=== PATIENT | female | born 1970 | race Caucasian/White ===

== ENCOUNTER 2018-12-23 01:16 | Inpatient (IN) | payer SELFPAY ==
--- NOTE | 2018-12-23 01:20 | EDPHY ---
H & P Source: Patient, Police Time Seen by Provider: 12/23/18 01:20 HPI/ROS: HPI CHIEF COMPLAINT: M1 hold from senior living. Delusional HISTORY OF PRESENT ILLNESS: This is a 48-year-old female, she presents to the emergency from senior living on M1 hold by senior living staff. The M1 hold reveals that she is delusional, hyper-denominational and paranoid. Patient has a history of PTSD, but denies any other psychiatric illness. She presents to the emergency room and is very delusional. Paranoid. Hyper-denominational here. She had a mental health evaluation at senior living. Once she is medically clear here, they will search for bed placement. Past Medical History: PTSD Past Surgical History: Denies recent surgery Social History: Was recently incarcerated, denies drugs or alcohol. Family History: Noncontributory ROS REVIEW OF SYSTEMS: 10 Systems were reviewed and negative with the exception of the elements mentioned in the history of present illness. Exam Constitutional triage nursing summary reviewed, vital signs reviewed, awake/ alert. Eyes normal conjunctivae and sclera, EOMI, PERRLA. HENT normal inspection, atraumatic, moist mucus membranes, no epistaxis, neck supple/ no meningismus, no raccoon eyes. Respiratory clear to auscultation bilaterally, normal breath sounds, no respiratory distress, no wheezing. Cardiovascular rate normal, regular rhythm, no murmur, no edema, distal pulses normal. Gastrointestinal soft, non-tender, no rebound, no guarding, normal bowel sounds, no distension, no pulsatile mass. Genitourinary no CVA tenderness. Musculoskeletal no midline vertebral tenderness, full range of motion, no calf swelling, no tenderness of extremities, no meningismus, good pulses, neurovascularly intact. Skin pink, warm, & dry, no rash, skin atraumatic. Neurologic awake, alert and oriented x 3, AAOx3, moves all 4 extremities equally, motor intact, sensory intact, CN II-XII intact, normal cerebellar, normal vision, normal speech. Psychiatric delusional, paranoid, hyper denominational Heme/Lymph/Immune no lymphadenopathy. Differential Diagnosis: But is not limited to in a particular order acute psychosis, underlying mental illness, mood disorder, bipolar disorder, schizophrenia, drug intoxication Medical Decision Making: Plan for this patient blood draw for medical clearance , drug screen, alcohol level. Patient on M1 home by senior living. Patient will need to rest tonight, and mental health evaluation in the morning once medically cleared. Re-evaluation: Patient has been seen and evaluated by mental health at senior living. She is now medically cleared 5:06 a.m.. They are pending placement for her. 0700AM: Signed over to Dr. Reyes, patient pending placement. (Feroz Rico) Constitutional: Initial Vital Signs Temperature (C) 36.4 C 12/23/18 01:20 Heart Rate 81 12/23/18 01:20 Respiratory Rate 16 12/23/18 01:20 Blood Pressure 112/74 12/23/18 01:20 O2 Sat (%) 96 12/23/18 01:20 O2 Delivery Mode Room Air Allergies/Adverse Reactions: Penicillins Allergy (Verified 12/23/18 01:38) Home Medications: Medication Instructions Recorded NK [No Known Home Meds] 12/23/18 Medical Decision Making Other Provider: Care assumed at 6:45 a.m., plan for inpatient psychiatric hospitalization for this 48-year-old woman who presents from senior living with acute psychosis. 721: The patient will be transferred to [facility] for inpatient psychiatric hospital bed not available at this facility, in stable condition; accepting physician is Dr. Miah Zhang. EMTALA form completed. (Ap Reyes) - Data Points Laboratory Results: Laboratory Results 12/23/18 01:30 12/23/18 01:30 12/23/18 12/23/18 12/23/18 01:30 01:30 01:30 WBC RBC Hgb Hct MCV MCH MCHC RDW Plt Count MPV Neut % (Auto) Lymph % (Auto) [place] % (Auto) Eos % (Auto) Baso % (Auto) Nucleat RBC Rel Count Absolute Neuts (auto) Absolute Lymphs (auto) Absolute Monos (auto) Absolute Eos (auto) Absolute Basos (auto) Absolute Nucleated RBC Immature Gran % Immature Gran # Sodium 140 mEq/L mEq/L (135-145) Potassium 3.6 mEq/L mEq/L (3.5-5.2) Chloride 108 mEq/L mEq/L (97-110) Carbon Dioxide 21 mEq/l L mEq/l (22-31) Anion Gap 11 mEq/L mEq/L (6-14) BUN 10 mg/dL mg/dL (7-23) Creatinine 0.7 mg/dL mg/dL (0.6-1.0) Estimated GFR > 60 Glucose 96 mg/dL mg/dL (70-100) Calcium 9.6 mg/dL mg/dL (8.5-10.4) Beta HCG, Qual NEGATIVE Urine Opiates Screen NEGATIVE (NEGATIVE) Urine Barbiturates NEGATIVE (NEGATIVE) Ur Phencyclidine Scrn NEGATIVE (NEGATIVE) Ur Amphetamine Screen NEGATIVE (NEGATIVE) U Benzodiazepines Scrn NEGATIVE (NEGATIVE) Urine Cocaine Screen NEGATIVE (NEGATIVE) U Marijuana (THC) Screen NEGATIVE (NEGATIVE) Ethyl Alcohol < 10 mg/dL mg/dL (0-10) 12/23/18 01:30 WBC 7.67 10^3/uL 10^3/uL (3.80-9.50) RBC 4.44 10^6/uL 10^6/uL (4.18-5.33) Hgb 14.3 g/dL g/dL (12.6-16.3) Hct 41.7 % % (38.0-47.0) MCV 93.9 fL fL (81.5-99.8) MCH 32.2 pg pg (27.9-34.1) MCHC 34.3 g/dL g/dL (32.4-36.7) RDW 11.9 % % (11.5-15.2) Plt Count 308 10^3/uL 10^3/uL (150-400) MPV 9.2 fL fL (8.7-11.7) Neut % (Auto) 53.9 % % (39.3-74.2) Lymph % (Auto) 36.6 % % (15.0-45.0) [place] % (Auto) 5.9 % % (4.5-13.0) Eos % (Auto) 1.6 % % (0.6-7.6) Baso % (Auto) 1.7 % % (0.3-1.7) Nucleat RBC Rel Count 0.0 % % (0.0-0.2) Absolute Neuts (auto) 4.14 10^3/uL 10^3/uL (1.70-6.50) Absolute Lymphs (auto) 2.81 10^3/uL 10^3/uL (1.00-3.00) Absolute Monos (auto) 0.45 10^3/uL 10^3/uL (0.30-0.80) Absolute Eos (auto) 0.12 10^3/uL 10^3/uL (0.03-0.40) Absolute Basos (auto) 0.13 10^3/uL H 10^3/uL (0.02-0.10) Absolute Nucleated RBC 0.00 10^3/uL 10^3/uL (0-0.01) Immature Gran % 0.3 % % (0.0-1.1) Immature Gran # 0.02 10^3/uL 10^3/uL (0.00-0.10) Sodium Potassium Chloride Carbon Dioxide Anion Gap BUN Creatinine Estimated GFR Glucose Calcium Beta HCG, Qual Urine Opiates Screen Urine Barbiturates Ur Phencyclidine Scrn Ur Amphetamine Screen U Benzodiazepines Scrn Urine Cocaine Screen U Marijuana (THC) Screen Ethyl Alcohol Departure - Departure Disposition: [facility] IP Clinical Impression: Acute psychosis Condition: Fair Referrals: NONE *PRIMARY CARE P,. [Primary Care Provider] - As per Instructions
[2018-12-23 01:43] LABS: PLATELET COUNT 308 10^3/uL (150-400)
--- NOTE | 2018-12-23 07:16 | ASMTTCLDSP ---
[facility] Discharge Disposition Disposition: Answers: Admit Disposition Notes: Notes: Admit [facility]. Discharge Concerns/Recommendations: Notes: Unspecified Schizophrenia Spectrum and Other Psychotic Disorder 298.9 (F29) Posttraumatic Stress Disorder 309.81 (F43.10) by history MH evaluation was conducted on 12/22/18 by [facility] while pt was at [facility]. Report faxed to [facility]. In consultation with [facility] ED physician, Ivan Guerra MD, and on-call psychiatrist, Miah Zhang MD, both concurred that pt appears to meet 27-65 criteria requiring psychiatric hospitalization as pt appears to be gravely disabled due to a mental illness condition. Pt declined/unable to complete BDI/BSS questionnaires. Pt was given (but declined to sign) the [facility] prohibited belongings checklist. Was patient given the Answers: Yes Inpatient Behavioral Health Prohibited Belongings List while in the ED? For inpatient Miah Zhang MD admission, the following psychiatrist agreed to accept patient for admission to Behavioral Health ([facility]): Type of Hold: Answers: M1/72-hour Hold Hold initiated by: Answers: Other Notes: [facility] worker Date Signed: 12/23/2018 07:15 AM Electronically Signed By:Nabeel Herrera
[2018-12-23] MEDS ORDERED: LORazepam 0.5 MG TAB PO PRN (11:31)
[2018-12-23] MEDS ORDERED: OLANZapine DISINTEGR 10 MG TAB PO PRN (11:31)
[2018-12-23] MEDS ORDERED: ASPIRIN 81 MG CHEWABLE TAB PO ONE (12:41)
[2018-12-23] MEDS: NICOTINE POLACRILEX 2 MG GUM B PRN (13:42)
--- NOTE | 2018-12-23 13:44 | BAPA ---
[f rep st] ADMISSION PSYCHIATRIC ASSESSMENT DATE OF SERVICE: 12/23/2018 CHIEF COMPLAINT: "I'm here because I was transported here. I have a headache and a nosebleed. I am here for medical reasons. I would really prefer not to meet right now." HISTORY OF PRESENT ILLNESS: From the ED note, dated 12/23/2018, the [facility]. M1 hold states that patient presented with delusional thinking, with hyperreligiosity being persecuted and tortured. Patient expressed several bizarre physical complaints, including her leg being broken, fever getting worse, wisdom teeth coming in and a heart murmur. The patient was tangential, disorganized thought process. The patient appeared gravely disabled. From the [facility] assessment, dated 12/22/2018, the patient is homeless. Reportedly has 4 kids who live with her ex- in [place]. The patient is not active with mental health treatment anywhere and has no insurance. The patient's delusions made it difficult to gather accurate information during the [facility] evaluation. The patient was admitted to [facility] due to harassment and violation of a restraining order charges on December 19. [facility] was [facility] by [facility] clinician on December 20, and they recommended that patient is seen by [facility] for potential M1 hold due to patient "not being in touch with reality." Patient had court on 12/22/2018, and was released on a CT huston. The patient reported hyperreligiosity regarding Catholicism that are outside the cultural norms. The patient reported "extra- perceptive" and reported she could feel people's emotions and hear their thoughts. The patient made numerous references to involvement in her life. [facility] staff reported patient was seen by mental health team , and she was diagnosed with PTSD 7 or 8 years ago. The patient was unintelligible with various unrelated narratives being discussed. The patient appeared delusional with delusions of persecution and grandiosity. When asked questions about how patient had been sleeping and eating, patient reported, "Well, I see it as a twilight that I'm in between." The patient then went on with a narrative about people in group are part of a [employer] cruise ship and that she has a broken leg, her wisdom teeth are coming in, she has a heart murmur and she has a fever that has been getting worse. Further information regarding patient's history of present illness will be gathered throughout the course of the patient's stay. PAST PSYCHIATRIC HISTORY: Patient reported no history of suicide attempts. The patient was unable to provide past psychiatric history during the [facility] evaluation, and patient did not provide any past psychiatric history to this ASSISTANT TO THE PRESIDENT. Will continue to gather past psychiatric history during the course of the patient's hospital stay. ALLERGIES: Penicillins. CURRENT MEDICATIONS: 1. Tylenol 650 mg p.o. q.4 hours p.r.n. 2. Aspirin 81 mg p.o. now once. 3. Ativan 0.5 to 1 mg p.o. q.6 hours p.r.n. 4. Maalox syrup 30 mL p.o. q.6 hours p.r.n. 5. Milk of magnesia 30 mL p.o. daily p.r.n. 6. Nicorette 2 mg q.1 hour p.r.n. 7. Zyprexa Zydis 10 mg p.o. q.4 hours p.r.n. PAST MEDICAL HISTORY: The patient reported several bizarre physical complaints , including that her leg was broken, her wisdom teeth were coming in, she has a heart murmur, and her fever is getting worse. The patient was medically cleared for psychiatric hospitalization and treatment during the emergency department evaluation prior to being admitted here at [address] The patient reported no significant history of illnesses, surgeries or hospitalizations to this ASSISTANT TO THE PRESIDENT and no general health history was gathered during the [facility]' evaluation prior to patient being admitted. Will continue to gather past medical history throughout the course of the patient's hospitalization. SOCIAL HISTORY: Patient is currently unemployed. The patient reported she has a BA and is working on her master's in " [employer]." The patient has no history of duty. The patient is currently involved with the legal system. The patient was admitted at [facility] due to harassment and violation of restraining order charges on December 19, 2018. No additional social history is available at this time. The patient presents with disorganized tangential thought, provides nonsensical answers to this ASSISTANT TO THE PRESIDENT's questions regarding social history. Will continue to gather patient's social history throughout the course of the patient's hospitalization. SUBSTANCE USE HISTORY: The patient denies drug and alcohol use. The patient denies any history of treatment for substance use disorder. Will continue to gather patient's substance use history throughout the course of the patient's hospitalization. FAMILY PSYCHIATRIC HISTORY: There is no known family psychiatric history for this patient at this time. Will continue to gather family psychiatric history throughout the course of the patient's hospitalization. ADMISSION LABS AND STUDIES: 1. CBC within normal limits, except absolute basophils were elevated at 0.13. 2. BMP within normal limits, except carbon dioxide was low at 21. 3. Beta hCG qualitative test negative. 4. Toxicology screen negative for all substances screen and negative for ethyl alcohol. MENTAL STATUS EXAM: The patient is a well-nourished female, looking older than stated chronological age. Attire is appropriate. Dress is hospital garb. Grooming status is inappropriate and disheveled. Ambulation is independent. Gait is normal and coordinated. Posture is normal and relaxed. Eye contact is inappropriate and staring. Motor activity is appropriate with purposeful, organized, coordinated movements with no involuntary movements noted. Attitude is uncooperative, defensive and guarded. The patient appears disinterested and distractible, and does not relate well to this interviewer. Language production is spontaneous. Rate is pressured. Latency of response is shortened with irritable tone. Articulation is clear. The patient reports mood as "okay," with expansive inappropriate affect. The patient's thought process is nonlinear and illogical with loose associations and tangential thought. The patient does not report suicidal/homicidal thoughts, ideas or plans. Patient reports delusions. The patient does not appear to be attending to internal stimuli. The patient is oriented to person and place. The patient' s attention and concentration are poor. The patient's insight and judgment are poor. The patient does not report undesirable side effects from current medications. DIAGNOSIS: Based on the patient's history and current presentation, patient's diagnosis is unspecified psychosis. FORMULATION: The patient is a 48-year-old female, single, unemployed, living homeless, who presents to the hospital from the [facility] involuntarily, due to being gravely disabled and is currently on an M1 hold. The patient requires continued inpatient care because of current acute psychosis. The patient presents with problems of psychosis. The patient's life has been affected by these problems, including the inability to care for herself and communicate her basic needs. The trigger for onset or exacerbation of symptoms is unknown at this time. The patient's past psychiatric history is unknown at this time. The patient is a high safety risk due to current acute psychosis. Protective factors while hospitalized include ongoing safety checks , active involvement in treatment and support from our treatment team. The patient could benefit from inpatient hospitalization for safety, crisis stabilization and medication evaluation. PLAN: 1. Psychotropic medications. Begin scheduled dose of Zyprexa Zydis 10 mg p.o. q.h.s. for acute psychosis. No other medication changes at this time as more time is needed to determine ongoing tolerability and efficacy. Plan is to continue to observe patient for response and side effects from medications, and ongoing monitoring and evaluation. 2. Review with patient informed consent and recommendations for psychotropic medication treatment listed below 3. Labs: A1c, TSH, lipid panel, liver function test 4. Therapy: continue milieu and group therapy 5. Further investigation including gathering information from patients relatives and review of past case records to inform treatment plan. 6. Safety/Wellness plan and follow-up outpatient appointments to be established prior to discharge. Next steps are for patient to meet with skin care instructor to plan a safe discharge plan and establish outpatient services for ongoing treatment. 7. Confer with inpatient treatment team regarding treatment plan. 8. Address psychosocial stressors by meeting with youth care specialist to establish discharge plan including referrals for outpatient services. 9. Legal status: M1 10. Consider discharge next week if patient is in stable condition, safe, and has a safe discharge plan. ESTIMATED LENGTH OF STAY: 7-10 days PSYCHOTROPIC MEDICATION TREATMENT INFORMED CONSENT and RECOMMENDATIONS: Review nature of condition, diagnosis, and prognosis. Review nature and purpose of psychotropic medication treatment. Review type of psychotropic medications being ordered. Review risk and benefits of psychotropic medication treatment. Review probable length of time will need to take medications. Review risk and benefits of not undergoing psychotropic medication treatment. Review alternative treatments to psychotropic medications. Review psychotropic medications contraindications, drug-drug interactions, side effects, and importance of reporting any side effects to a psychiatric provider or nurse during inpatient hospitalization, and upon discharge to patients psychiatric outpatient provider, primary care provider, or other health direct care supervisor. Review importance of asking a nurse, psychiatric provider, or primary care provider any questions or problems concerning the psychotropic medications. Verify patient understands the information that has been provided, and understands, accepts, and agrees to psychotropic medications. Review patients safety plan and importance of patient to communicate to staff while hospitalized if patient is ever a danger to self/others, or unable to care for self, and upon discharge, the importance for patient to contact [facility] or [facility], or go to the nearest emergency room, if patient is ever a danger to self/others, or unable to care for self. Recommend that upon discharge patient establish medication management treatment with a psychiatric provider, establishes routine therapy appointments, and follow-up with primary care provider. Verify patient understands and agrees to these recommendations. /[id number]/MODL MTDD
--- NOTE | 2018-12-23 14:57 | PDMN ---
Medical Necessity Medical necessity: Pt meets inpt criteria per MD order and [facility] [id number], Other Psychotic Disorders, Adult: Inpatient Care, 3 days. 48 y/o admitted w/ unspecified psychosis, on M1 Hold due to being gravely disabled- presenting w/ delusional thinking, bizarre physical complaints, and tangential, disorganized thought process, requires inpt psychiatric hospitalization due to current acute psychosis.
[2018-12-23] MEDS: OLANZapine DISINTEGR 10 MG TAB PO SCH ×2 (20:48→21:04)
[2018-12-23] MEDS: ACETAMINOPHEN 325 MG TAB PO PRN (20:48)
--- NOTE | 2018-12-24 07:23 | ASMTBHMTP ---
Master Treatment Plan Master Treatment Plan Answers: Impaired Reality for: Date: 12/23/2018 Diagnosis on Admission: Unspecified Schizophrenia Spectrum and Other Psychotic Disorder 298.9 (F29) Expected length of stay: 3-5 days Reason for admission: Notes: Client came from [facility]. Patient's stated presenting problems: Notes: Client would not participate Patient's goals for treatment: Notes: Client would not participate Patient's strengths: Notes: Client would not participate Identify supports outside of hospital: Notes: Client would not participate Discharge criteria: Notes: Psychotic symptoms will be reduced or eliminated with return to baseline functioning in affect, thinking and behavior prior to discharge.* Initial disposition plan/considerations: Notes: Client would not participate Master Treatment Plan Required Signatures Psychiatrist signature: Answers: Psychiatrist: RN on-shift signature: Answers: RN: Patient signature: Answers: Patient: Date Signed: 12/24/2018 07:23 AM Electronically Signed By:Tunde Diggs
--- NOTE | 2018-12-24 08:04 | SOAPPROG ---
SOAP Progress Note Assessment/Plan: Assessment: Unspecified Psychosis. R/O Schizoaffective Disorder, Bipolar Type. R/O Bipolar Disorder. No improvement noted. (see subjective/objective note). Patient is not safe to discharge at this time as patient continues to exhibit signs of psychosis, and express psychosis symptoms. Patient requires continued inpatient care because of current psychosis, and requires inpatient level of care to stabilize in order to no longer be gravely disabled due to mental illness. Patient is unable to communicate her basic needs, unable to test reality, and continues to require prompting and direction from staff for ADLs. Patient exhibits inability to provide for herself, neglecting self-care, withdrawn from social interactions, currently shows inability to maintain any appropriate aspect of personal responsibility as an adult, patient becomes agitated and irritable easily and continues exhibited irritable behavior toward staff. Support system has inability to manage functional impairment at lower level of care. Patient could benefit from continued inpatient hospitalization for crisis stabilization, safety, and medication evaluation. Plan: 1. Psychotropic medications: No medication changes at this time as more time is needed to determine ongoing tolerability and efficacy. Plan is to continue to observe patient for response and side effects from medications, and ongoing monitoring and evaluation. Education patient on the importance of taking medications as prescribed. 2. Review with patient informed consent and recommendations for psychotropic medication treatment listed below 3. Labs: no additional labs at this time 4. Therapy: continue milieu and group therapy 5. Further investigation including gathering information from patients relatives and review of past case records to inform treatment plan. 6. Safety/Wellness plan and follow-up outpatient appointments to be established prior to discharge. Next steps are for patient to meet with adult daycare coordinator to plan a safe discharge plan and establish outpatient services for ongoing treatment. 7. Confer with inpatient treatment team regarding treatment plan. 8. Psychosocial stressors addressed through spring encaser 9. Legal status: M1 10. Consider discharge next week if patient is in stable condition, safe, and has a safe discharge plan. PSYCHOTROPIC MEDICATION TREATMENT INFORMED CONSENT and RECOMMENDATIONS: Review nature of condition, diagnosis, and prognosis. Review nature and purpose of psychotropic medication treatment. Review type of psychotropic medications being ordered. Review risk and benefits of psychotropic medication treatment. Review probable length of time patient will need to take medications. Review risk and benefits of not undergoing psychotropic medication treatment. Review alternative treatments to psychotropic medications. Review psychotropic medications contraindications, drug-drug interactions, side effects, and importance of reporting any side effects to a psychiatric provider or nurse during inpatient hospitalization, and upon discharge to patients psychiatric outpatient provider, primary care provider, or other health home day care provider. Review importance of asking a nurse, psychiatric provider, or primary care provider any questions or problems concerning the psychotropic medications. Verify patient understands the information that has been provided, and understands, accepts, and agrees to psychotropic medications. Review patients safety plan and importance of patient to report to staff while hospitalized if patient is ever a danger to self/others, or unable to care for self, and upon discharge, the importance for patient to contact [facility] or [facility], or go to the nearest emergency room, if patient is ever a danger to self/others, or unable to care for self. Recommend that upon discharge patient establish medication management treatment with a psychiatric provider, establishes routine therapy appointments, and follow-up with primary care provider. Verify patient understands and agrees to these recommendations. 12/24/18 08:03 Subjective: Following up with patient for evaluation of psychosis and safety. Patient reports, "I did not take the medication last night because I am not mentally ill. I am not someone that takes drugs, I am not a drug addict. I am here to do family reconciliation." Patient expresses the following psychiatric symptoms none. Patient refuses medications, states she does not need medications. Patient states, "I've never had psychiatric needs. My blood is sacred, and I want to be sure it is tracked." Patient reports she slept about 5 hours last night, and reports she feels rested today. 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 My mind is pretty keen, that is why I cant lie." Objective: Vital Signs Temp Pulse Resp BP Pulse Ox 36.8 C 72 14 117/57 L 98 12/24/18 06:00 12/24/18 06:00 12/24/18 06:00 12/24/18 06:00 12/24/18 06:00 NURSING REPORT: Consulted with nursing for update on patients progress in treatment. Nurses report patient is not engaged in treatment, is not attending groups, slept 4 hours, expresses the following psychiatric symptoms: delusions, exhibits the following psychiatric symptoms: tangential, pressured speech; is eating all meals, is not agreeable to medications, and denies SI/HI, denies A/V hallucinations, and reports delusions. MSE: The patient is a well-nourished female looking older than stated chronological age. Attire is appropriate dress is hospital garb. Grooming status is inappropriate and disheveled. Ambulation is independent. Gait is normal and coordinated. Posture is normal. Eye contact is inappropriate and staring. Motor activity is appropriate with purposeful, organized, coordinated movements; with no involuntary movements. Attitude is uncooperative, defensive and guarded at times. Patient appears attentive and relates well to this interviewer. Language production is spontaneous. Rate is pressured. Latency of response is shortened with irritable tone. Articulation is clear. Patient reports mood as okay with expansive and inappropriate affect. Patients thought process is tangential, disorganized, non-linear and illogical, with loose associations, and nonsensical. Patient does not report suicidal/homicidal thoughts, ideas, or plans. Patient denies auditory, visual hallucinations. Patient reports delusions. Patient does not appear to be attending to internal stimuli. Patients attention and concentration are poor. Patient is oriented to person, place, and time. Patients insight is poor. Patients judgment is poor. - Time Spent With Patient Time Spent With Patient: 15 minutes, met with patient individually. - Pending Discharge Pending Discharge Within 24 Hours: No Pending Discharge Within 48 Hours: No ICD10 Worksheet Patient Problems: Problems Problem Status Onset Acute psychosis Acute
--- NOTE | 2018-12-24 15:04 | BCON ---
[f rep st] BEHAVIORAL HEALTH CONSULTATION INTERNAL MEDICINE CONSULTATION DATE OF CONSULTATION: 12/24/2018 REFERRING PHYSICIAN: Dr. Zhang REASON FOR REFERRAL: Medical clearance for inpatient behavioral health stay. HISTORY OF PRESENT ILLNESS: This patient came to [facility] on an M1 hold from the alf where she was found to be delusional and paranoid. She was evaluated by the mental health team and admitted for further psychiatric care. Currently, she complains of a headache and says she has pain from wisdom teeth coming in. She otherwise has no medical complaints, though she feels under stress due to her psychosocial situation. PAST MEDICAL HISTORY: She has had 4 children by natural . She denies any other medical or surgical history. She reports that she has a heart murmur and that one of her children has a heart murmur acquired through breast feeding. MEDICATIONS: She was taking no medications. ALLERGIES: There is an allergy listed to penicillin. SOCIAL HISTORY: She reports that she is and that her 4 children are with her . Medical record review indicates that she is a smoker, and she admits to using nicotine, which she justifies for buddhism reasons. Further social history was difficult to elicit. FAMILY HISTORY: Noncontributory. REVIEW OF SYSTEMS: She reports that she has had constipation for several days, but that she had a bowel movement when she was in the alf. She denies abdominal pain, nausea, or vomiting. She says she feels short of breath but does not have a cough. There are no fevers or chills. There is no dyspnea. She is not in pain other than headache. She denies vision changes or difficulty swallowing. She denies weakness, numbness, tingling, or stiff neck. Otherwise, a 10-point review of systems is negative. PHYSICAL EXAM: VITAL SIGNS: Blood pressure is 117/57, heart rate is 72, respiratory rate is 14, oxygen saturation is 98% on room air, temperature is 36.8 degrees centigrade. GENERAL: She is a well-nourished, well-developed woman lying in bed, easily awakened, cooperative, and in no acute distress. HEENT: Extraocular movements are intact. Pupils are equal, round, and reactive to light. Mucous membranes are moist. Dentition is in good condition. NECK: Supple with no thyromegaly and no lymphadenopathy. HEART: There is a regular rate and rhythm. I do not hear murmur. LUNGS: Clear to auscultation bilaterally. ABDOMEN: Benign. EXTREMITIES: There is no cyanosis , clubbing, or edema. NEUROLOGIC: She is alert and oriented x3. She is very distractible and with bizarre buddhism ideation. Cranial nerves 2-12 are grossly intact. There is no focal weakness. Sensation is intact to light touch and gait is normal. LABORATORY STUDIES: Drawn in the emergency department. CBC was entirely within normal limits. Serum chemistry revealed overall normal renal function and electrolytes, but carbon dioxide was very slightly low at 21. Hemoglobin A1c was normal at 5.1. Liver function tests were normal. Lipid panel revealed an elevated cholesterol at 218, LDL was elevated at 135, HDL was normal at 60. TSH was elevated at 10.3. Beta hCG was negative for . Toxicology screen in the serum was negative for ethyl alcohol and in the urine was negative for any substances of abuse. ASSESSMENT AND RECOMMENDATIONS: 1. Mental health issues. Pending further evaluation and management per Psychiatry and the mental health team. 2. Likely hypothyroidism. I have added on a free T3 and free T4 to evaluate further. It is unlikely that hypothyroidism would be contributing to her symptoms, but if she is truly hypothyroid, she would benefit from initiating treatment. 3. Dental pain per self report. I saw no abnormalities on exam. For this and also for the headaches, acetaminophen is prescribed and would be an appropriate first step if she were willing to take any medications. 4. Tobacco dependence syndrome. She had buddhism justification for smoking tobacco, so it is unlikely that attempts at smoking cessation would be fruitful in her current state of mind. 5. With no leukocytosis and a normal neurologic exam, it seems unlikely that there is any infectious or mass lesion driving her psychosis. However, if she is otherwise refractory to psychiatric care, might consider a head CT. I see no medical contraindications to this patient's continued stay on the inpatient behavioral health unit or to any psychiatric medications or procedures. Thank you very much for including me in the care of this patient and please do not hesitate to contact me or the hospitalist service should there be need for further medical evaluation. /[id number]/MODL MTDD
[2018-12-24] MEDS: OLANZapine DISINTEGR 10 MG TAB PO SCH (20:52)
--- NOTE | 2018-12-25 07:59 | SOAPPROG ---
SOAP Progress Note Assessment/Plan: Assessment: Unspecified Psychosis. R/O Schizoaffective Disorder, Bipolar Type. R/O Bipolar Disorder. No improvement noted. (see subjective/objective note). Patient is not safe to discharge at this time as patient continues to exhibit signs of psychosis, and express psychosis symptoms. Patient requires continued inpatient care because of current psychosis, and requires inpatient level of care to stabilize in order to no longer be gravely disabled due to mental illness. Patient is unable to communicate her basic needs, unable to test reality, and continues to require prompting and direction from staff for ADLs. Patient exhibits inability to provide for herself, neglecting self-care, withdrawn from social interactions, currently shows inability to maintain any appropriate aspect of personal responsibility as an adult, patient becomes agitated and irritable easily and continues exhibited irritable behavior toward staff. Support system has inability to manage functional impairment at lower level of care. Patient could benefit from continued inpatient hospitalization for crisis stabilization, safety, and medication evaluation. Plan: 1. Psychotropic medications: No medication changes at this time as more time is needed to determine ongoing tolerability and efficacy. Plan is to continue to observe patient for response and side effects from medications, and ongoing monitoring and evaluation. Education patient on the importance of taking medications as prescribed. 2. Review with patient informed consent and recommendations for psychotropic medication treatment listed below 3. Labs: no additional labs at this time 4. Therapy: continue milieu and group therapy 5. Further investigation including gathering information from patients relatives and review of past case records to inform treatment plan. 6. Safety/Wellness plan and follow-up outpatient appointments to be established prior to discharge. Next steps are for patient to meet with congregational care pastor to plan a safe discharge plan and establish outpatient services for ongoing treatment. 7. Confer with inpatient treatment team regarding treatment plan. 8. Psychosocial stressors addressed through returned case inspector 9. Legal status: M1 10. Consider discharge next week if patient is in stable condition, safe, and has a safe discharge plan. PSYCHOTROPIC MEDICATION TREATMENT INFORMED CONSENT and RECOMMENDATIONS: Review nature of condition, diagnosis, and prognosis. Review nature and purpose of psychotropic medication treatment. Review type of psychotropic medications being ordered. Review risk and benefits of psychotropic medication treatment. Review probable length of time patient will need to take medications. Review risk and benefits of not undergoing psychotropic medication treatment. Review alternative treatments to psychotropic medications. Review psychotropic medications contraindications, drug-drug interactions, side effects, and importance of reporting any side effects to a psychiatric provider or nurse during inpatient hospitalization, and upon discharge to patients psychiatric outpatient provider, primary care provider, or other health dog daycare provider. Review importance of asking a nurse, psychiatric provider, or primary care provider any questions or problems concerning the psychotropic medications. Verify patient understands the information that has been provided, and understands, accepts, and agrees to psychotropic medications. Review patients safety plan and importance of patient to report to staff while hospitalized if patient is ever a danger to self/others, or unable to care for self, and upon discharge, the importance for patient to contact [facility] or [facility], or go to the nearest emergency room, if patient is ever a danger to self/others, or unable to care for self. Recommend that upon discharge patient establish medication management treatment with a psychiatric provider, establishes routine therapy appointments, and follow-up with primary care provider. Verify patient understands and agrees to these recommendations. 12/24/18 08:03 Subjective: Following up with patient for evaluation of psychosis and safety. Patient reports, "I did not take the medication again last night because I do not need medications. It's like taking a recreational drug, and I am a sober person. I am not going to take medications." Patient expresses the following psychiatric symptoms none. Patient refuses medications, states she does not need medications. Objective: Vital Signs Temp Pulse Resp BP Pulse Ox 36.7 C 63 16 111/73 96 12/25/18 06:00 12/25/18 06:00 12/25/18 06:00 12/25/18 06:00 12/25/18 06:00 NURSING REPORT: Consulted with nursing for update on patients progress in treatment. Nurses report patient is not engaged in treatment, is not attending groups, slept 9 hours, expresses the following psychiatric symptoms: delusions, exhibits the following psychiatric symptoms: tangential, pressured speech; is eating all meals, is not agreeable to medications, and denies SI/HI, denies A/V hallucinations, and reports delusions. MSE: The patient is a well-nourished female looking older than stated chronological age. Attire is appropriate dress is hospital garb. Grooming status is inappropriate and disheveled. Ambulation is independent. Gait is normal and coordinated. Posture is normal. Eye contact is inappropriate and staring. Motor activity is appropriate with purposeful, organized, coordinated movements; with no involuntary movements. Attitude is uncooperative, defensive and guarded at times. Patient appears attentive and relates well to this interviewer. Language production is spontaneous. Rate is pressured. Latency of response is shortened with irritable tone. Articulation is clear. Patient reports mood as okay with expansive and inappropriate affect. Patients thought process is disorganized, non-linear and illogical, with loose associations, nonsensical. Patient does not report suicidal/homicidal thoughts, ideas, or plans. Patient denies auditory, visual hallucinations. Patient reports delusions. Patient does not appear to be attending to internal stimuli. Patients attention and concentration are poor. Patient is oriented to person, place, and time. Patients insight is poor. Patients judgment is poor. - Time Spent With Patient Time Spent With Patient: 15 minutes, met with patient individually. - Pending Discharge Pending Discharge Within 24 Hours: No Pending Discharge Within 48 Hours: No ICD10 Worksheet Patient Problems: Problems Problem Status Onset Acute psychosis Acute
--- NOTE | 2018-12-25 12:55 | ASMTCMCOM ---
CM Note CM Note Notes: The patient participated in clinical treatment team rounds. She presented as delusional with disorganized thinking. She refused to consider medication. The staff discussed with the patient the short term certification and court order medication process. Date Signed: 12/25/2018 12:53 PM Electronically Signed By:Louisa Maher
--- NOTE | 2018-12-25 13:06 | SOAPPROG ---
SOAP Progress Note Assessment/Plan: Assessment: Subclinical hypothyroidism. TSH is elevated but free T3 and free T4 are normal. She has no symptoms that are consistent with hypothyroidism. Advise repeat TSH in 4-6 weeks. 12/25/18 13:05 Subjective: Reviewed labs. Objective: Vital Signs Temp Pulse Resp BP Pulse Ox 36.7 C 63 16 111/73 96 12/25/18 06:00 12/25/18 06:00 12/25/18 06:00 12/25/18 06:00 12/25/18 06:00 ICD10 Worksheet Patient Problems: Problems Problem Status Onset Acute psychosis Acute Unspecified psychosis Acute
[2018-12-25] MEDS: PSYLLIUM METAMUCIL 1 PKT PO SCH (17:48)
[2018-12-25] MEDS: OLANZapine DISINTEGR 10 MG TAB PO SCH (22:04)
--- NOTE | 2018-12-26 06:43 | SOAPPROG ---
SOAP Progress Note Assessment/Plan: Assessment: Unspecified Psychosis. R/O Schizoaffective Disorder, Bipolar Type. R/O Delusional Disorder. No improvement noted. (see subjective/objective note). Patient is not safe to discharge at this time as patient continues to exhibit signs of psychosis, and express psychosis symptoms. Patient requires continued inpatient care because of current psychosis, and requires inpatient level of care to stabilize in order to no longer be gravely disabled due to mental illness. Patient is unable to communicate her basic needs, unable to test reality, and continues to require prompting and direction from staff for ADLs. Patient exhibits inability to provide for herself, neglecting self-care, withdrawn from social interactions, currently shows inability to maintain any appropriate aspect of personal responsibility as an adult, patient becomes agitated and irritable easily and continues exhibited irritable behavior toward staff. Support system has inability to manage functional impairment at lower level of care. Patient could benefit from continued inpatient hospitalization for crisis stabilization, safety, and medication evaluation. Plan: 1. Psychotropic medications: No medication changes at this time as more time is needed to determine ongoing tolerability and efficacy. Plan is to continue to observe patient for response and side effects from medications, and ongoing monitoring and evaluation. Education patient on the importance of taking medications as prescribed. 2. Review with patient informed consent and recommendations for psychotropic medication treatment listed below 3. Labs: no additional labs at this time 4. Therapy: continue milieu and group therapy 5. Further investigation including gathering information from patients relatives and review of past case records to inform treatment plan. 6. Safety/Wellness plan and follow-up outpatient appointments to be established prior to discharge. Next steps are for patient to meet with care trainer to plan a safe discharge plan and establish outpatient services for ongoing treatment. 7. Confer with inpatient treatment team regarding treatment plan. 8. Psychosocial stressors addressed through case folder 9. Legal status: M1 10. Consider discharge next week if patient is in stable condition, safe, and has a safe discharge plan. PSYCHOTROPIC MEDICATION TREATMENT INFORMED CONSENT and RECOMMENDATIONS: Review nature of condition, diagnosis, and prognosis. Review nature and purpose of psychotropic medication treatment. Review type of psychotropic medications being ordered. Review risk and benefits of psychotropic medication treatment. Review probable length of time patient will need to take medications. Review risk and benefits of not undergoing psychotropic medication treatment. Review alternative treatments to psychotropic medications. Review psychotropic medications contraindications, drug-drug interactions, side effects, and importance of reporting any side effects to a psychiatric provider or nurse during inpatient hospitalization, and upon discharge to patients psychiatric outpatient provider, primary care provider, or other health healthcare financial analyst. Review importance of asking a nurse, psychiatric provider, or primary care provider any questions or problems concerning the psychotropic medications. Verify patient understands the information that has been provided, and understands, accepts, and agrees to psychotropic medications. Review patients safety plan and importance of patient to report to staff while hospitalized if patient is ever a danger to self/others, or unable to care for self, and upon discharge, the importance for patient to contact [facility] or [facility], or go to the nearest emergency room, if patient is ever a danger to self/others, or unable to care for self. Recommend that upon discharge patient establish medication management treatment with a psychiatric provider, establishes routine therapy appointments, and follow-up with primary care provider. Verify patient understands and agrees to these recommendations. 12/26/18 06:42 Subjective: Following up with patient for evaluation of psychosis and safety. Patient reports, "I am doing okay." Patient expresses the following psychiatric symptoms none. Patient refuses medications, states she does not need medications. Patient states, "I do not need medications." Objective: Vital Signs Temp Pulse Resp BP Pulse Ox 36.7 C 63 16 111/73 96 12/25/18 06:00 12/25/18 06:00 12/25/18 06:00 12/25/18 06:00 12/25/18 06:00 NURSING REPORT: Consulted with nursing for update on patients progress in treatment. Nurses report patient is not engaged in treatment, is not attending groups, slept 8 hours, expresses the following psychiatric symptoms: delusions, exhibits the following psychiatric symptoms: disorganized, nonsensical; is eating all meals, is not agreeable to medications, and denies SI/HI, denies A/V hallucinations, and reports delusions. LEGAL STATUS CHANGE: Patient placed on short-term certification. MSE: The patient is a well-nourished female looking older than stated chronological age. Attire is appropriate dress is hospital garb. Grooming status is inappropriate and disheveled. Ambulation is independent. Gait is normal and coordinated. Posture is normal. Eye contact is inappropriate and staring. Motor activity is appropriate with purposeful, organized, coordinated movements; with no involuntary movements. Attitude is uncooperative, defensive and guarded at times. Patient appears attentive and relates well to this interviewer. Language production is spontaneous. Rate is pressured. Latency of response is shortened with irritable tone. Articulation is clear. Patient reports mood as okay with expansive and inappropriate affect. Patients thought process is disorganized, non-linear and illogical, with loose associations, nonsensical. Patient does not report suicidal/homicidal thoughts, ideas, or plans. Patient denies auditory, visual hallucinations. Patient reports delusions. Patient does not appear to be attending to internal stimuli. Patients attention and concentration are poor. Patient is oriented to person, place, and time. Patients insight is poor. Patients judgment is poor. - Time Spent With Patient Time Spent With Patient: 15 minutes, met with patient individually. - Pending Discharge Pending Discharge Within 24 Hours: No Pending Discharge Within 48 Hours: No ICD10 Worksheet Patient Problems: Problems Problem Status Onset Acute psychosis Acute Unspecified psychosis Acute
[2018-12-26] MEDS: PSYLLIUM METAMUCIL 1 PKT PO SCH (09:04)
--- NOTE | 2018-12-26 12:17 | ASMTBHDC ---
Notes Note: Notes: The patient expressed interest in outpatient services with [facility]. She completed a FREDIS and this automobile and property underwriter faxed a referral packet on her behalf. The patient emphasized that she would like utilize therapy; not medication management services because she remains uninterested in medication treatment. This automobile and property underwriter spoke with [place] [employer] and learned that the patient has been released from their custody and is not expected to return to senior living upon discharge. She has a court proceeding scheduled for 01/30 @ 8:30. Date Signed: 12/26/2018 12:16 PM Electronically Signed By:Louisa Maher
[2018-12-26] MEDS: OLANZapine DISINTEGR 10 MG TAB PO SCH (20:16)
[2018-12-27] MEDS: PSYLLIUM METAMUCIL 1 PKT PO SCH (10:03)
--- NOTE | 2018-12-27 15:39 | ASMTCMCOM ---
CM Note CM Note Notes: CC approached pt to meet. Pt. asked CC to not be so upbeat, as she was trying to not feel manic. CC asked pt. how she was feeling, pt stated she is "trying not to have magical thinking". Pt. shared about her dreams, and dreaming about her son. Pt. stated "we are in communion with people who are delusional and taking medications to mask". Pt. stated she is pentecostal and has not had communion in several days, adding she has had "no access to a feeder/folder". Pt. stated her last name is actually "mirical". Pt. stated this environment is affecting her children, adding her "children weren't born on meds on in a hospital". Pt. stated she has "pus in my body. Me teeth were bleeding". Pt. stated she has "never done anything wrong legally or medically". Pt. stated her father was a jehovah witness adzing and boring machine operator. Pt. stated she is "seeking mental stability", and plans on doing this through art therapy. Pt. stated she is not 48 years old, but she is actually 43 years old. Pt. stated her "pastoral studies may cause hardship" for her children. Pt. stated she doesn't want her children to end up on a "psyc wood". Pt. stated she is "coming to terms with predicament". Pt. reports she "cried twice" this morning and had "two bowel movements". Pt. stated "happy Shabnam is totally manic". Pt. denied SI, HI, and AVH. Pt. reports "paranoia creeping a little bit with the TV and violence". Pt. stated her wisdom teeth are coming in, adding "they are set". Pt. presents as alert, tense, clenching her jaw, fair eye contact, talkative, rambling, delusional, rigid posture, preoccupied with zoroastrian, and mostly cooperative. Staff report pt. sleeping 8.5 hours and not willing to take any psychiatric medications. CC to reach out to [facility] on Saturday with pt's potential discharge date. Date Signed: 12/27/2018 03:39 PM Electronically Signed By:Aga Sanders
--- NOTE | 2018-12-27 16:20 | SOAPPROG ---
SOAP Progress Note Assessment/Plan: Assessment: Per Balbir Kay's note: Unspecified Psychosis. R/O Schizoaffective Disorder, Bipolar Type. R/O Delusional Disorder. No improvement noted. (see subjective/objective note). Patient is not safe to discharge at this time as patient continues to exhibit signs of psychosis, and express psychosis symptoms. Patient requires continued inpatient care because of current psychosis, and requires inpatient level of care to stabilize in order to no longer be gravely disabled due to mental illness. Patient is unable to communicate her basic needs, unable to test reality, and continues to require prompting and direction from staff for ADLs. Patient exhibits inability to provide for herself, neglecting self-care, withdrawn from social interactions, currently shows inability to maintain any appropriate aspect of personal responsibility as an adult, patient becomes agitated and irritable easily and continues exhibited irritable behavior toward staff. Support system has inability to manage functional impairment at lower level of care. Patient could benefit from continued inpatient hospitalization for crisis stabilization, safety, and medication evaluation. Plan: 1. Psychotropic medications: No medication changes at this time as more time is needed to determine ongoing tolerability and efficacy. Plan is to continue to observe patient for response and side effects from medications, and ongoing monitoring and evaluation. Education patient on the importance of taking medications as prescribed. WEEKEND PLAN: 12/27/18 16:[address] Conde evaluated patient for subclinical hypothyroidism. Since T3 and T4 are both WNL and patient is asymptomatic, he did not recommend any treatment at this time. He recommended patient f/u with repeat TSH in 4-6 weeks. 2. Patient continues to be paranoid and delusional. Still refusing all psych meds. 3. On [facility] Subjective: Patient continues to present with paranoid delusions. She believes her last name is "miracle" and says she is trying not to have "magical thinking." She is fixated on tenriism conversation. She does not have any SI/HI. She refuses to take any psych meds. Objective: Vital Signs Temp Pulse Resp BP Pulse Ox 36.8 C 63 14 118/56 L 92 12/27/18 06:00 12/27/18 06:00 12/27/18 06:00 12/27/18 06:00 12/27/18 06:00 MSE: Affect: Animated Mood: "Fine" TP: Disorganized, illogical TC: Denies any SI/HI, has paranoid delusions Insight/Judgment: Impaired - Time Spent With Patient Time Spent With Patient: 15" - Pending Discharge Pending Discharge Within 24 Hours: No Pending Discharge Within 48 Hours: No ICD10 Worksheet Patient Problems: Problems Problem Status Onset Acute psychosis Acute Unspecified psychosis Acute
[2018-12-27] MEDS: OLANZapine DISINTEGR 10 MG TAB PO SCH (23:30)
[2018-12-28] MEDS: PSYLLIUM METAMUCIL 1 PKT PO SCH (08:28)
[2018-12-28] MEDS: NICOTINE POLACRILEX 2 MG GUM B PRN ×2 (13:11→17:41)
--- NOTE | 2018-12-28 17:13 | SOAPPROG ---
SOAP Progress Note Assessment/Plan: Assessment: Per Balbir Kay's note: Unspecified Psychosis. R/O Schizoaffective Disorder, Bipolar Type. R/O Delusional Disorder. No improvement noted. (see subjective/objective note). Patient is not safe to discharge at this time as patient continues to exhibit signs of psychosis, and express psychosis symptoms. Patient requires continued inpatient care because of current psychosis, and requires inpatient level of care to stabilize in order to no longer be gravely disabled due to mental illness. Patient is unable to communicate her basic needs, unable to test reality, and continues to require prompting and direction from staff for ADLs. Patient exhibits inability to provide for herself, neglecting self-care, withdrawn from social interactions, currently shows inability to maintain any appropriate aspect of personal responsibility as an adult, patient becomes agitated and irritable easily and continues exhibited irritable behavior toward staff. Support system has inability to manage functional impairment at lower level of care. Patient could benefit from continued inpatient hospitalization for crisis stabilization, safety, and medication evaluation. Plan: 1. Psychotropic medications: No medication changes at this time as more time is needed to determine ongoing tolerability and efficacy. Plan is to continue to observe patient for response and side effects from medications, and ongoing monitoring and evaluation. Education patient on the importance of taking medications as prescribed. WEEKEND PLAN: 12/27/18 16:[address] Conde evaluated patient for subclinical hypothyroidism. Since T3 and T4 are both WNL and patient is asymptomatic, he did not recommend any treatment at this time. He recommended patient f/u with repeat TSH in 4-6 weeks. 2. Patient continues to be paranoid and delusional. Still refusing all psych meds. 3. On [facility] 12/28/18 17:09 1. Patient still psychotic and refusing medications. 2. Patient has been attending group and interacting with peers. 3. [facility] Subjective: Patient attended 2 groups this AM. Patient observed writing with intense concentration in her journal. Her writing fills page completely. She has odd affect and demeanor. Last night she told staff her goal was to "focus on the color orange." Patient has been eating 100% of meals and slept 9 hrs last night. She denies any SI/HI. She refuses to take any meds other than "baby ASA" and metamucil. Objective: Vital Signs Temp Pulse Resp BP Pulse Ox 36.8 C 65 16 117/58 L 98 12/28/18 06:00 12/28/18 06:00 12/28/18 06:00 12/28/18 06:00 12/28/18 06:00 MSE: Affect: Odd Mood: "OK" TP: Disorganized, illogical TC: Denies any SI/HI Perception: Denies AH/VH, but seems internally preoccupied Insight/Judgment: Poor - Time Spent With Patient Time Spent With Patient: 15" - Pending Discharge Pending Discharge Within 24 Hours: No Pending Discharge Within 48 Hours: No ICD10 Worksheet Patient Problems: Problems Problem Status Onset Acute psychosis Acute Unspecified psychosis Acute
[2018-12-28] MEDS: OLANZapine DISINTEGR 10 MG TAB PO SCH (21:11)
--- NOTE | 2018-12-29 08:20 | SOAPPROG ---
SOAP Progress Note Assessment/Plan: Assessment: Unspecified Psychosis. R/O Schizoaffective Disorder, Bipolar Type. R/O Delusional Disorder. No improvement noted. (see subjective/objective note). Patient is not safe to discharge at this time as patient continues to exhibit signs of psychosis, and express psychosis symptoms. Patient requires continued inpatient care because of current psychosis, and requires inpatient level of care to stabilize in order to no longer be gravely disabled due to mental illness. Patient is unable to communicate her basic needs, unable to test reality, and continues to require prompting and direction from staff for ADLs. Patient exhibits inability to provide for herself, neglecting self-care, withdrawn from social interactions, currently shows inability to maintain any appropriate aspect of personal responsibility as an adult, patient becomes agitated and irritable easily and continues exhibited irritable behavior toward staff. Support system has inability to manage functional impairment at lower level of care. Patient could benefit from continued inpatient hospitalization for crisis stabilization, safety, and medication evaluation. Plan: 1. Psychotropic medications: No medication changes at this time as more time is needed to determine ongoing tolerability and efficacy. Plan is to continue to observe patient for response and side effects from medications, and ongoing monitoring and evaluation. Education patient on the importance of taking medications as prescribed. 2. Review with patient informed consent and recommendations for psychotropic medication treatment listed below 3. Labs: no additional labs at this time 4. Therapy: continue milieu and group therapy 5. Further investigation including gathering information from patients relatives and review of past case records to inform treatment plan. 6. Safety/Wellness plan and follow-up outpatient appointments to be established prior to discharge. Next steps are for patient to meet with resident care technician to plan a safe discharge plan and establish outpatient services for ongoing treatment. 7. Confer with inpatient treatment team regarding treatment plan. 8. Psychosocial stressors addressed through case management social worker 9. Legal status: [facility] 10. Consider discharge next week if patient is in stable condition, safe, and has a safe discharge plan. PSYCHOTROPIC MEDICATION TREATMENT INFORMED CONSENT and RECOMMENDATIONS: Review nature of condition, diagnosis, and prognosis. Review nature and purpose of psychotropic medication treatment. Review type of psychotropic medications being ordered. Review risk and benefits of psychotropic medication treatment. Review probable length of time patient will need to take medications. Review risk and benefits of not undergoing psychotropic medication treatment. Review alternative treatments to psychotropic medications. Review psychotropic medications contraindications, drug-drug interactions, side effects, and importance of reporting any side effects to a psychiatric provider or nurse during inpatient hospitalization, and upon discharge to patients psychiatric outpatient provider, primary care provider, or other health child daycare worker. Review importance of asking a nurse, psychiatric provider, or primary care provider any questions or problems concerning the psychotropic medications. Verify patient understands the information that has been provided, and understands, accepts, and agrees to psychotropic medications. Review patients safety plan and importance of patient to report to staff while hospitalized if patient is ever a danger to self/others, or unable to care for self, and upon discharge, the importance for patient to contact [facility] or [facility], or go to the nearest emergency room, if patient is ever a danger to self/others, or unable to care for self. Recommend that upon discharge patient establish medication management treatment with a psychiatric provider, establishes routine therapy appointments, and follow-up with primary care provider. Verify patient understands and agrees to these recommendations. 12/29/18 08:19 Subjective: Following up with patient for evaluation of psychosis and safety. Patient reports, "I am doing okay." Patient expresses the following psychiatric symptoms none. Patient refuses medications, states she does not need medications. Patient states, "I do not need medications. I do not take hallucinogens. My body chemistry is different." Objective: Vital Signs Temp Pulse Resp BP Pulse Ox 36.9 C 50 L 14 115/56 L 94 12/29/18 06:00 12/29/18 06:00 12/29/18 06:00 12/29/18 06:00 12/29/18 06:00 NURSING REPORT: Consulted with nursing for update on patients progress in treatment. Nurses report patient is not engaged in treatment, is not attending groups, slept 6 hours, expresses the following psychiatric symptoms: delusions, exhibits the following psychiatric symptoms: disorganized, nonsensical; is eating all meals, is not agreeable to medications, and denies SI/HI, denies A/V hallucinations, and reports delusions. MD REPORT FROM WEEKEND: Patient remains psychotic; continues to refuse medications except Metamucil. MSE: The patient is a well-nourished female looking older than stated chronological age. Attire is appropriate dress is hospital garb. Grooming status is inappropriate and disheveled. Ambulation is independent. Gait is normal and coordinated. Posture is normal. Eye contact is inappropriate and staring. Motor activity is appropriate with purposeful, organized, coordinated movements; with no involuntary movements. Attitude is uncooperative, defensive and guarded at times. Patient appears attentive and relates well to this interviewer. Language production is spontaneous. Rate is pressured. Latency of response is shortened with irritable tone. Articulation is clear. Patient reports mood as okay with expansive and inappropriate affect. Patients thought process is disorganized, non-linear and illogical, with loose associations, nonsensical. Patient does not report suicidal/homicidal thoughts, ideas, or plans. Patient denies auditory, visual hallucinations. Patient reports delusions. Patient does not appear to be attending to internal stimuli. Patients attention and concentration are poor. Patient is oriented to person, place, and time. Patients insight is poor. Patients judgment is poor. - Time Spent With Patient Time Spent With Patient: 15 minutes, met with patient individually. - Pending Discharge Pending Discharge Within 24 Hours: No Pending Discharge Within 48 Hours: No ICD10 Worksheet Patient Problems: Problems Problem Status Onset Acute psychosis Acute Unspecified psychosis Acute
[2018-12-29] MEDS: PSYLLIUM METAMUCIL 1 PKT PO SCH (09:15)
[2018-12-29] MEDS: NICOTINE POLACRILEX 2 MG GUM B PRN ×2 (17:37→21:14)
[2018-12-29] MEDS: OLANZapine DISINTEGR 10 MG TAB PO SCH (20:47)
--- NOTE | 2018-12-30 07:50 | SOAPPROG ---
SOAP Progress Note Assessment/Plan: Assessment: Unspecified Psychosis. R/O Schizoaffective Disorder, Bipolar Type. R/O Delusional Disorder. Acute psychosis; continues to refuse antipsychotic. No improvement noted. (see subjective/objective note). Patient is not safe to discharge at this time as patient continues to exhibit signs of psychosis, and express psychosis symptoms. Patient requires continued inpatient care because of current psychosis, and requires inpatient level of care to stabilize in order to no longer be gravely disabled due to mental illness. Patient is unable to communicate her basic needs, unable to test reality, and continues to require prompting and direction from staff for ADLs. Patient exhibits inability to provide for herself, neglecting self-care, withdrawn from social interactions, currently shows inability to maintain any appropriate aspect of personal responsibility as an adult, patient becomes agitated and irritable easily and continues exhibited irritable behavior toward staff. Support system has inability to manage functional impairment at lower level of care. Patient could benefit from continued inpatient hospitalization for crisis stabilization , safety, and medication evaluation. Plan: 1. Psychotropic medications: No medication changes at this time as more time is needed to determine ongoing tolerability and efficacy. Plan is to continue to observe patient for response and side effects from medications, and ongoing monitoring and evaluation. Education patient on the importance of taking medications as prescribed. 2. Review with patient informed consent and recommendations for psychotropic medication treatment listed below 3. Labs: no additional labs at this time 4. Therapy: continue milieu and group therapy 5. Further investigation including gathering information from patients relatives and review of past case records to inform treatment plan. 6. Safety/Wellness plan and follow-up outpatient appointments to be established prior to discharge. Next steps are for patient to meet with health care liaison to plan a safe discharge plan and establish outpatient services for ongoing treatment. 7. Confer with inpatient treatment team regarding treatment plan. 8. Psychosocial stressors addressed through corrections caseworker 9. Legal status: [facility] 10. Consider discharge next week if patient is in stable condition, safe, and has a safe discharge plan. PSYCHOTROPIC MEDICATION TREATMENT INFORMED CONSENT and RECOMMENDATIONS: Review nature of condition, diagnosis, and prognosis. Review nature and purpose of psychotropic medication treatment. Review type of psychotropic medications being ordered. Review risk and benefits of psychotropic medication treatment. Review probable length of time patient will need to take medications. Review risk and benefits of not undergoing psychotropic medication treatment. Review alternative treatments to psychotropic medications. Review psychotropic medications contraindications, drug-drug interactions, side effects, and importance of reporting any side effects to a psychiatric provider or nurse during inpatient hospitalization, and upon discharge to patients psychiatric outpatient provider, primary care provider, or other health home health care coordinator. Review importance of asking a nurse, psychiatric provider, or primary care provider any questions or problems concerning the psychotropic medications. Verify patient understands the information that has been provided, and understands, accepts, and agrees to psychotropic medications. Review patients safety plan and importance of patient to report to staff while hospitalized if patient is ever a danger to self/others, or unable to care for self, and upon discharge, the importance for patient to contact [facility] or [facility], or go to the nearest emergency room, if patient is ever a danger to self/others, or unable to care for self. Recommend that upon discharge patient establish medication management treatment with a psychiatric provider, establishes routine therapy appointments, and follow-up with primary care provider. Verify patient understands and agrees to these recommendations. 12/30/18 07:49 Subjective: Following up with patient for evaluation of psychosis and safety. Patient reports, "I am doing just fine." Patient expresses the following psychiatric symptoms none. Patient refuses medications, states she does not need medications. Patient states, "I do not need medications. I am not going to take something that is mind altering. I am Druze." Objective: Vital Signs Temp Pulse Resp BP Pulse Ox 36.8 C 70 15 119/62 97 12/30/18 06:00 12/30/18 06:00 12/30/18 06:00 12/30/18 06:00 12/30/18 06:00 NURSING REPORT: Consulted with nursing for update on patients progress in treatment. Nurses report patient is not engaged in treatment, is not attending groups, slept 6 hours, expresses the following psychiatric symptoms: delusions, exhibits the following psychiatric symptoms: disorganized, nonsensical; is eating all meals, is not agreeable to medications, and denies SI/HI, denies A/V hallucinations, and reports delusions. MD REPORT FROM WEEKEND: Patient remains psychotic; continues to refuse medications except Metamucil. MSE: The patient is a well-nourished female looking older than stated chronological age. Attire is appropriate dress is hospital garb. Grooming status is inappropriate and disheveled. Ambulation is independent. Gait is normal and coordinated. Posture is normal. Eye contact is inappropriate and staring. Motor activity is appropriate with purposeful, organized, coordinated movements; with no involuntary movements. Attitude is uncooperative, defensive and guarded at times. Patient appears attentive and relates well to this interviewer. Language production is spontaneous. Rate is pressured. Latency of response is shortened with irritable tone. Articulation is clear. Patient reports mood as okay with expansive and inappropriate affect. Patients thought process is disorganized, non-linear and illogical, with loose associations, nonsensical. Patient does not report suicidal/homicidal thoughts, ideas, or plans. Patient denies auditory, visual hallucinations. Patient reports delusions. Patient does not appear to be attending to internal stimuli. Patients attention and concentration are poor. Patient is oriented to person, place, and time. Patients insight is poor. Patients judgment is poor. - Time Spent With Patient Time Spent With Patient: 15 minutes, met with patient individually. - Pending Discharge Pending Discharge Within 24 Hours: No Pending Discharge Within 48 Hours: No ICD10 Worksheet Patient Problems: Problems Problem Status Onset Acute psychosis Acute Unspecified psychosis Acute
[2018-12-30] MEDS: PSYLLIUM METAMUCIL 1 PKT PO SCH (09:11)
[2018-12-30] MEDS: NICOTINE POLACRILEX 2 MG GUM B PRN ×4 (10:47→21:09)
[2018-12-30] MEDS: OLANZapine DISINTEGR 10 MG TAB PO SCH (20:27)
[2018-12-31] MEDS: NICOTINE POLACRILEX 2 MG GUM B PRN ×2 (07:16→10:55)
--- NOTE | 2018-12-31 08:09 | SOAPPROG ---
SOAP Progress Note Assessment/Plan: Assessment: Unspecified Psychosis. R/O Schizoaffective Disorder, Bipolar Type. R/O Delusional Disorder. Acute psychosis; continues to refuse antipsychotic. No improvement noted. (see subjective/objective note). Patient is not safe to discharge at this time as patient continues to exhibit signs of psychosis, and express psychosis symptoms. Patient requires continued inpatient care because of current psychosis, and requires inpatient level of care to stabilize in order to no longer be gravely disabled due to mental illness. Patient is unable to communicate her basic needs, unable to test reality, and continues to require prompting and direction from staff for ADLs. Patient exhibits inability to provide for herself, neglecting self-care, withdrawn from social interactions, currently shows inability to maintain any appropriate aspect of personal responsibility as an adult, patient becomes agitated and irritable easily and continues exhibited irritable behavior toward staff. Support system has inability to manage functional impairment at lower level of care. Patient could benefit from continued inpatient hospitalization for crisis stabilization , safety, and medication evaluation. Plan: 1. Psychotropic medications: No medication changes at this time as more time is needed to determine ongoing tolerability and efficacy. Plan is to continue to observe patient for response and side effects from medications, and ongoing monitoring and evaluation. Education patient on the importance of taking medications as prescribed. 2. Review with patient informed consent and recommendations for psychotropic medication treatment listed below 3. Labs: no additional labs at this time 4. Therapy: continue milieu and group therapy 5. Further investigation including gathering information from patients relatives and review of past case records to inform treatment plan. 6. Safety/Wellness plan and follow-up outpatient appointments to be established prior to discharge. Next steps are for patient to meet with home care rn to plan a safe discharge plan and establish outpatient services for ongoing treatment. 7. Confer with inpatient treatment team regarding treatment plan. 8. Psychosocial stressors addressed through catalytic case operator 9. Legal status: [facility] 10. Consider discharge next week if patient is in stable condition, safe, and has a safe discharge plan. PSYCHOTROPIC MEDICATION TREATMENT INFORMED CONSENT and RECOMMENDATIONS: Review nature of condition, diagnosis, and prognosis. Review nature and purpose of psychotropic medication treatment. Review type of psychotropic medications being ordered. Review risk and benefits of psychotropic medication treatment. Review probable length of time patient will need to take medications. Review risk and benefits of not undergoing psychotropic medication treatment. Review alternative treatments to psychotropic medications. Review psychotropic medications contraindications, drug-drug interactions, side effects, and importance of reporting any side effects to a psychiatric provider or nurse during inpatient hospitalization, and upon discharge to patients psychiatric outpatient provider, primary care provider, or other health personal care aid. Review importance of asking a nurse, psychiatric provider, or primary care provider any questions or problems concerning the psychotropic medications. Verify patient understands the information that has been provided, and understands, accepts, and agrees to psychotropic medications. Review patients safety plan and importance of patient to report to staff while hospitalized if patient is ever a danger to self/others, or unable to care for self, and upon discharge, the importance for patient to contact [facility] or [facility], or go to the nearest emergency room, if patient is ever a danger to self/others, or unable to care for self. Recommend that upon discharge patient establish medication management treatment with a psychiatric provider, establishes routine therapy appointments, and follow-up with primary care provider. Verify patient understands and agrees to these recommendations. 12/31/18 08:08 Subjective: Following up with patient for evaluation of psychosis and safety. Patient reports, "I am doing fine." Patient expresses the following psychiatric symptoms none. Patient refuses medications, states she does not need medications. Patient states, "I do not need to take medications, especially ones that I have not studied. 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 Nurses report patient is not engaged in treatment, is not attending groups, slept 8 hours, expresses the following psychiatric symptoms: delusions, exhibits the following psychiatric symptoms: disorganized, nonsensical; is eating all meals, is not agreeable to medications, and denies SI/HI, denies A/V hallucinations, and reports delusions. MD REPORT FROM WEEKEND: Patient remains psychotic; continues to refuse medications except Metamucil. MSE: The patient is a well-nourished female looking older than stated chronological age. Attire is appropriate dress is hospital garb. Grooming status is inappropriate and disheveled. Ambulation is independent. Gait is normal and coordinated. Posture is normal. Eye contact is inappropriate and staring. Motor activity is appropriate with purposeful, organized, coordinated movements; with no involuntary movements. Attitude is uncooperative, defensive and guarded at times. Patient appears attentive and relates well to this interviewer. Language production is spontaneous. Rate is pressured. Latency of response is shortened with irritable tone. Articulation is clear. Patient reports mood as okay with expansive and inappropriate affect. Patients thought process is disorganized, non-linear and illogical, with loose associations, nonsensical. Patient does not report suicidal/homicidal thoughts, ideas, or plans. Patient denies auditory, visual hallucinations. Patient reports delusions. Patient does not appear to be attending to internal stimuli. Patients attention and concentration are poor. Patient is oriented to person, place, and time. Patients insight is poor. Patients judgment is poor. - Time Spent With Patient Time Spent With Patient: 15 minutes, met with patient individually. - Pending Discharge Pending Discharge Within 24 Hours: No Pending Discharge Within 48 Hours: No ICD10 Worksheet Patient Problems: Problems Problem Status Onset Acute psychosis Acute Unspecified psychosis Acute
[2018-12-31] MEDS: PSYLLIUM METAMUCIL 1 PKT PO SCH (09:06)
[2018-12-31] MEDS: ACETAMINOPHEN 325 MG TAB PO PRN (09:07)
[2018-12-31] MEDS: OLANZapine DISINTEGR 10 MG TAB PO SCH (20:17)
--- NOTE | 2019-01-01 08:15 | SOAPPROG ---
SOAP Progress Note Assessment/Plan: Assessment: Unspecified Psychosis. R/O Schizoaffective Disorder, Bipolar Type. R/O Delusional Disorder. Acute psychosis; continues to refuse antipsychotic medication. No improvement noted. (see subjective/objective note). Patient is not safe to discharge at this time as patient continues to exhibit signs of psychosis, and express psychosis symptoms. Patient requires continued inpatient care because of current psychosis, and requires inpatient level of care to stabilize in order to no longer be gravely disabled due to mental illness. Patient is unable to communicate her basic needs, unable to test reality, and continues to require prompting and direction from staff for ADLs. Patient exhibits inability to provide for herself, neglecting self-care, withdrawn from social interactions, currently shows inability to maintain any appropriate aspect of personal responsibility as an adult, patient becomes agitated and irritable easily and continues exhibited irritable behavior toward staff. Support system has inability to manage functional impairment at lower level of care. Patient could benefit from continued inpatient hospitalization for crisis stabilization, safety, and medication evaluation. Plan: 1. Psychotropic medications: No medication changes at this time as more time is needed to determine ongoing tolerability and efficacy. Plan is to continue to observe patient for response and side effects from medications, and ongoing monitoring and evaluation. Education patient on the importance of taking medications as prescribed. 2. Review with patient informed consent and recommendations for psychotropic medication treatment listed below 3. Labs: no additional labs at this time 4. Therapy: continue milieu and group therapy 5. Further investigation including gathering information from patients relatives and review of past case records to inform treatment plan. 6. Safety/Wellness plan and follow-up outpatient appointments to be established prior to discharge. Next steps are for patient to meet with lawn caretaker to plan a safe discharge plan and establish outpatient services for ongoing treatment. 7. Confer with inpatient treatment team regarding treatment plan. 8. Psychosocial stressors addressed through family independence case manager 9. Legal status: [facility] 10. Consider discharge next week if patient is in stable condition, safe, and has a safe discharge plan. PSYCHOTROPIC MEDICATION TREATMENT INFORMED CONSENT and RECOMMENDATIONS: Review nature of condition, diagnosis, and prognosis. Review nature and purpose of psychotropic medication treatment. Review type of psychotropic medications being ordered. Review risk and benefits of psychotropic medication treatment. Review probable length of time patient will need to take medications. Review risk and benefits of not undergoing psychotropic medication treatment. Review alternative treatments to psychotropic medications. Review psychotropic medications contraindications, drug-drug interactions, side effects, and importance of reporting any side effects to a psychiatric provider or nurse during inpatient hospitalization, and upon discharge to patients psychiatric outpatient provider, primary care provider, or other health home care associate. Review importance of asking a nurse, psychiatric provider, or primary care provider any questions or problems concerning the psychotropic medications. Verify patient understands the information that has been provided, and understands, accepts, and agrees to psychotropic medications. Review patients safety plan and importance of patient to report to staff while hospitalized if patient is ever a danger to self/others, or unable to care for self, and upon discharge, the importance for patient to contact [facility] or [facility], or go to the nearest emergency room, if patient is ever a danger to self/others, or unable to care for self. Recommend that upon discharge patient establish medication management treatment with a psychiatric provider, establishes routine therapy appointments, and follow-up with primary care provider. Verify patient understands and agrees to these recommendations. 01/01/19 08:14 Subjective: Following up with patient for evaluation of psychosis and safety. Patient reports, "I am a bit irritable this morning. I am working on my dexterity. My teeth hurt and my head hurts. My last name is Miracle so that needs to be changed. I had a Tylenol last night which is equivalent to a beer, a Heineken. " Patient expresses the following psychiatric symptoms none. Patient refuses medications, states she does not need medications. Objective: Vital Signs Temp Pulse Resp BP Pulse Ox 36.9 C 68 16 127/60 H 97 01/01/19 06:00 01/01/19 06:00 01/01/19 06:00 01/01/19 06:00 01/01/19 06:00 NURSING REPORT: Consulted with nursing for update on patients progress in treatment. Nurses report patient is not engaged in treatment, is not attending groups, slept 8 hours, expresses the following psychiatric symptoms: delusions, exhibits the following psychiatric symptoms: disorganized, nonsensical; is eating all meals, is not agreeable to medications, and denies SI/HI, denies A/V hallucinations, and reports delusions. MSE: The patient is a well-nourished female looking older than stated chronological age. Attire is appropriate dress is hospital garb. Grooming status is inappropriate and disheveled. Ambulation is independent. Gait is normal and coordinated. Posture is normal. Eye contact is inappropriate and staring. Motor activity is appropriate with purposeful, organized, coordinated movements; with no involuntary movements. Attitude is cooperative, defensive and guarded at times. Patient appears fairly attentive and relates well to this interviewer. Language production is spontaneous. Rate is pressured. Latency of response is shortened with irritable tone. Articulation is clear. Patient reports mood as okay with expansive and inappropriate affect. Patients thought process is disorganized, non-linear and illogical, with loose associations, nonsensical. Patient does not report suicidal/homicidal thoughts , ideas, or plans. Patient denies auditory, visual hallucinations. Patient reports delusions. Patient does not appear to be attending to internal stimuli. Patients attention and concentration are poor. Patient is oriented to person, place, and time. Patients insight is poor. Patients judgment is poor. - Time Spent With Patient Time Spent With Patient: 15 minutes, met with patient individually. - Pending Discharge Pending Discharge Within 24 Hours: No Pending Discharge Within 48 Hours: No ICD10 Worksheet Patient Problems: Problems Problem Status Onset Acute psychosis Acute Unspecified psychosis Acute
[2019-01-01] MEDS: PSYLLIUM METAMUCIL 1 PKT PO SCH (08:33)
[2019-01-01] MEDS: NICOTINE POLACRILEX 2 MG GUM B PRN ×3 (10:01→20:59)
--- NOTE | 2019-01-01 14:28 | SOAPPROG ---
SOAP Progress Note Assessment/Plan: Assessment: Subclinical hypothyroidism. TSH is elevated but free T3 and free T4 are normal. She has no symptoms that are consistent with hypothyroidism. Advise repeat TSH in 4-6 weeks. 12/25/18 13:05 Multiple nonspecific complaints. No indication for further medical evaluation. Regarding her mention of leaking amniotic fluid and possible , she had a negative test in the emergency department. 01/01/19 14:27 Subjective: Asked to see patient about tooth pain and reported purulence. Patient has multiple prolonged and delusional complaints including having been exposed to toxic gas at the [facility], concerned about , concerned about leaking amniotic fluid, concerned about internal bleeding and nose bleeds. She reports that her wisdom teeth are coming in for the 4th time and that there is inflammation. She says she took a Tylenol which she was "like drinking a Heineken." Reports she needs a homeopathic treatment from a doctor in [place]. She also says she needs to see a casing running machine tender and take the wafer , which will treat her pain and mental health issues. Impossible to obtain an organized history regarding any particular complaint. Objective: Vital Signs Temp Pulse Resp BP Pulse Ox 36.9 C 68 16 127/60 H 97 01/01/19 06:00 01/01/19 06:00 01/01/19 06:00 01/01/19 06:00 01/01/19 06:00 Physical Exam - Physical Exam General Appearance: WD/WN, alert, no apparent distress Respiratory: No respiratory distress, No accessory muscle use Skin: normal color, warm/dry Neuro/Psych: alert, other (Bizarre affect) ICD10 Worksheet Patient Problems: Problems Problem Status Onset Acute psychosis Acute Unspecified psychosis Acute
[2019-01-01] MEDS: OLANZapine DISINTEGR 10 MG TAB PO SCH (22:03)
--- NOTE | 2019-01-02 06:59 | SOAPPROG ---
SOAP Progress Note Assessment/Plan: Assessment: Unspecified Psychosis. R/O Schizoaffective Disorder, Bipolar Type. R/O Delusional Disorder. Acute psychosis; continues to refuse antipsychotic medication. No improvement noted. (see subjective/objective note). Patient is not safe to discharge at this time as patient continues to exhibit signs of psychosis, and express psychosis symptoms. Patient requires continued inpatient care because of current psychosis, and requires inpatient level of care to stabilize in order to no longer be gravely disabled due to mental illness. Patient is unable to communicate her basic needs, unable to test reality, and continues to require prompting and direction from staff for ADLs. Patient exhibits inability to provide for herself, neglecting self-care, withdrawn from social interactions, currently shows inability to maintain any appropriate aspect of personal responsibility as an adult, patient becomes agitated and irritable easily and continues exhibited irritable behavior toward staff. Support system has inability to manage functional impairment at lower level of care. Patient could benefit from continued inpatient hospitalization for crisis stabilization, safety, and medication evaluation. Plan: 1. Psychotropic medications: No medication changes at this time as more time is needed to determine ongoing tolerability and efficacy. Plan is to continue to observe patient for response and side effects from medications, and ongoing monitoring and evaluation. Education patient on the importance of taking medications as prescribed. 2. Review with patient informed consent and recommendations for psychotropic medication treatment listed below 3. Labs: no additional labs at this time 4. Therapy: continue milieu and group therapy 5. Further investigation including gathering information from patients relatives and review of past case records to inform treatment plan. 6. Safety/Wellness plan and follow-up outpatient appointments to be established prior to discharge. Next steps are for patient to meet with patient centered care specialist to plan a safe discharge plan and establish outpatient services for ongoing treatment. 7. Confer with inpatient treatment team regarding treatment plan. 8. Psychosocial stressors addressed through hospice case manager 9. Legal status: [facility] 10. Consider discharge next week if patient is in stable condition, safe, and has a safe discharge plan. PSYCHOTROPIC MEDICATION TREATMENT INFORMED CONSENT and RECOMMENDATIONS: Review nature of condition, diagnosis, and prognosis. Review nature and purpose of psychotropic medication treatment. Review type of psychotropic medications being ordered. Review risk and benefits of psychotropic medication treatment. Review probable length of time patient will need to take medications. Review risk and benefits of not undergoing psychotropic medication treatment. Review alternative treatments to psychotropic medications. Review psychotropic medications contraindications, drug-drug interactions, side effects, and importance of reporting any side effects to a psychiatric provider or nurse during inpatient hospitalization, and upon discharge to patients psychiatric outpatient provider, primary care provider, or other health aged or disabled carer. Review importance of asking a nurse, psychiatric provider, or primary care provider any questions or problems concerning the psychotropic medications. Verify patient understands the information that has been provided, and understands, accepts, and agrees to psychotropic medications. Review patients safety plan and importance of patient to report to staff while hospitalized if patient is ever a danger to self/others, or unable to care for self, and upon discharge, the importance for patient to contact [facility] or [facility], or go to the nearest emergency room, if patient is ever a danger to self/others, or unable to care for self. Recommend that upon discharge patient establish medication management treatment with a psychiatric provider, establishes routine therapy appointments, and follow-up with primary care provider. Verify patient understands and agrees to these recommendations. 01/02/19 06:58 Subjective: Following up with patient for evaluation of psychosis and safety. Patient reports, "I am doing fine. Thank you." Patient expresses the following psychiatric symptoms none. Patient refuses medications, states she does not need medications. Objective: Vital Signs Temp Pulse Resp BP Pulse Ox 36.8 C 55 L 14 115/55 L 97 01/02/19 06:00 01/02/19 06:00 01/02/19 06:00 01/02/19 06:00 01/02/19 06:00 NURSING REPORT: Consulted with nursing for update on patients progress in treatment. Nurses report patient is not engaged in treatment, is not attending groups, slept 8 hours, expresses the following psychiatric symptoms: delusions, exhibits the following psychiatric symptoms: disorganized, nonsensical; is eating all meals, is not agreeable to medications, and denies SI/HI, denies A/V hallucinations, and reports delusions. COM Court Date: 01/09/19 MSE: The patient is a well-nourished female looking older than stated chronological age. Attire is appropriate dress is hospital garb. Grooming status is inappropriate and disheveled. Ambulation is independent. Gait is normal and coordinated. Posture is normal. Eye contact is inappropriate and staring. Motor activity is appropriate with purposeful, organized, coordinated movements; with no involuntary movements. Attitude is cooperative, defensive and guarded at times. Patient appears fairly attentive and relates well to this interviewer. Language production is spontaneous. Rate is pressured. Latency of response is shortened with irritable tone. Articulation is clear. Patient reports mood as okay with expansive and inappropriate affect. Patients thought process is disorganized, non-linear and illogical, with loose associations, nonsensical. Patient does not report suicidal/homicidal thoughts , ideas, or plans. Patient denies auditory, visual hallucinations. Patient reports delusions. Patient does not appear to be attending to internal stimuli. Patients attention and concentration are poor. Patient is oriented to person, place, and time. Patients insight is poor. Patients judgment is poor. - Time Spent With Patient Time Spent With Patient: 15 minutes, met with patient individually. - Pending Discharge Pending Discharge Within 24 Hours: No Pending Discharge Within 48 Hours: No ICD10 Worksheet Patient Problems: Problems Problem Status Onset Acute psychosis Acute Unspecified psychosis Acute
[2019-01-02] MEDS: NICOTINE POLACRILEX 2 MG GUM B PRN ×4 (07:35→20:50)
[2019-01-02] MEDS: PSYLLIUM METAMUCIL 1 PKT PO SCH (07:47)
--- NOTE | 2019-01-02 13:15 | ASMTCMCOM ---
CM Note CM Note Notes: Pt. stated her "eyes are not connecting", adding this is due to her eyes being dilated by a light while at the group home. Pt. stated she has not been given access to her phone. Pt. did not have a phone with her at admission. Pt. stated she wants a psychologist to meet with her and diagnose her, along with pt wants the psychologist to look at her eyes. Pt. stated she needs to know the names of the medications she is being offered, adding the wrong medication could put her in a coma or kill her. Pt. stated he court appointed fur remodeler, "Mrs Muñoz is bias. Here against me and to keep me in here". Pt. spoke about prior to her admission, "missing bodies" and "scam with medicaid". Pt. asked why she was not informed she had a test done. Pt. stated he exHOC was/is "dosing the children with robitussin" and stole her ID, and is impersonating her on facebook. Pt. stated "my kids were dosed with meds" adding this is a part of a family court case she is working on. Pt. stated during her last hospitalization, the pt lost custody of her children to the pt's grandmother. Pt. stated she needs a traffic sign supervisor present when drawing blood so the blood is not tampered with. Pt. stated her fiance, now ex fiance, would not buy her medications for the past four months. Pt. stated she will take whatever medications Dr. Langston recommends. Pt. stated she "doesn't speak ". Pt. stated she has "holy family blood". Pt. stated she wants a new diagnosis by a psychologist and then to be transferred to another facility. Pt. presents as alert, rambling, pressured speech, staring eye contact, clenched jaw, inappropriate smiling, tangential, demanding and not very cooperative. Staff report pt. sleeping 7.5 hours and refusing to take any psychotropic medications. Pt's [facility] court hearing is on 01/09/19 Date Signed: 01/02/2019 01:14 PM Electronically Signed By:Aga Sanders
[2019-01-02] MEDS: OLANZapine DISINTEGR 10 MG TAB PO SCH (19:21)
[2019-01-03] MEDS: PSYLLIUM METAMUCIL 1 PKT PO SCH (09:30)
[2019-01-03] MEDS: NICOTINE POLACRILEX 2 MG GUM B PRN ×5 (10:46→21:02)
--- NOTE | 2019-01-03 17:11 | SOAPPROG ---
SOAP Progress Note Assessment/Plan: Assessment: Per Balbir Kay's note: Unspecified Psychosis. R/O Schizoaffective Disorder, Bipolar Type. R/O Delusional Disorder. No improvement noted. (see subjective/objective note). Patient is not safe to discharge at this time as patient continues to exhibit signs of psychosis, and express psychosis symptoms. Patient requires continued inpatient care because of current psychosis, and requires inpatient level of care to stabilize in order to no longer be gravely disabled due to mental illness. Patient is unable to communicate her basic needs, unable to test reality, and continues to require prompting and direction from staff for ADLs. Patient exhibits inability to provide for herself, neglecting self-care, withdrawn from social interactions, currently shows inability to maintain any appropriate aspect of personal responsibility as an adult, patient becomes agitated and irritable easily and continues exhibited irritable behavior toward staff. Support system has inability to manage functional impairment at lower level of care. Patient could benefit from continued inpatient hospitalization for crisis stabilization, safety, and medication evaluation. Dr. Zhang's note from treatment team meeting on 01/01/19: Pt seen in Treatment Team meeting this morning. She remains delusional, disorganized. States she cannot take medications because she is Yazdanism. "I don't believe in medications because I'm Yazdanism. The Yazdanism Protestant is the holy foundation of western medicine, so medications are blessed to heal people. That's why I can't take them." Quite paranoid in interview, hostile, antagonistic and oppositional, frequently arguing in an adolescent manner haleigh to "I know you are but what am I." Unable to effectively communicate with team or participate in care. Hearing for COM scheduled for 01/09/19 at 1030. WEEKEND PLAN: 01/03/19 17:07 1. Patient continues to list numerous somatic complaints that are delusional. She c/o inability to see out of her right eye, but MD observed patient reading notes she had written w/o loss of vision. Dr. Conde saw patient on but stated patient was too disorganized to obtain any coherent information about her complaints. 2. Patient continues to refuse psych meds. 3. Court hearing for involuntary medications scheduled on 01/09/19. 4. STC Subjective: Patient c/o this AM that her right eye was "shot" and "not working." However, later in morning, MD observed patient reading her own notes without any change in vision. He admitted that she could see without any problems. However, she still insisted her brain and her eyes had been "disconnected." She also complained that her guts were "upset" and that she needed metamucil to fix her guts. Despite GI complaints, patient ate 100% of meals. Objective: Vital Signs Temp Pulse Resp BP Pulse Ox 36.6 C 97 14 103/66 80 L 01/03/19 06:00 01/03/19 06:00 01/03/19 06:00 01/03/19 06:00 01/03/19 06:00 MSE: Affect: Argues at times, otherwise cooperative Mood: "OK" TP: Disorganized, illogical TC: Denies any SI/HI, delusional Insight/Judgment: Poor - Time Spent With Patient Time Spent With Patient: 15" - Pending Discharge Pending Discharge Within 24 Hours: No Pending Discharge Within 48 Hours: No ICD10 Worksheet Patient Problems: Problems Problem Status Onset Acute psychosis Acute Unspecified psychosis Acute
[2019-01-03] MEDS: OLANZapine DISINTEGR 10 MG TAB PO SCH (20:01)
[2019-01-04] MEDS: PSYLLIUM METAMUCIL 1 PKT PO SCH (06:37)
[2019-01-04] MEDS: NICOTINE POLACRILEX 2 MG GUM B PRN ×4 (07:41→21:45)
--- NOTE | 2019-01-04 15:03 | SOAPPROG ---
SOAP Progress Note Assessment/Plan: Assessment: Per Balbir Kay's note: Unspecified Psychosis. R/O Schizoaffective Disorder, Bipolar Type. R/O Delusional Disorder. No improvement noted. (see subjective/objective note). Patient is not safe to discharge at this time as patient continues to exhibit signs of psychosis, and express psychosis symptoms. Patient requires continued inpatient care because of current psychosis, and requires inpatient level of care to stabilize in order to no longer be gravely disabled due to mental illness. Patient is unable to communicate her basic needs, unable to test reality, and continues to require prompting and direction from staff for ADLs. Patient exhibits inability to provide for herself, neglecting self-care, withdrawn from social interactions, currently shows inability to maintain any appropriate aspect of personal responsibility as an adult, patient becomes agitated and irritable easily and continues exhibited irritable behavior toward staff. Support system has inability to manage functional impairment at lower level of care. Patient could benefit from continued inpatient hospitalization for crisis stabilization, safety, and medication evaluation. Dr. Zhang's note from treatment team meeting on 01/01/19: Pt seen in Treatment Team meeting this morning. She remains delusional, disorganized. States she cannot take medications because she is Temple. "I don't believe in medications because I'm Temple. The Temple Spiritism is the holy foundation of western medicine, so medications are blessed to heal people. That's why I can't take them." Quite paranoid in interview, hostile, antagonistic and oppositional, frequently arguing in an adolescent manner haleigh to "I know you are but what am I." Unable to effectively communicate with team or participate in care. Hearing for COM scheduled for 01/09/19 at 1030. WEEKEND PLAN: 01/03/19 17:07 1. Patient continues to list numerous somatic complaints that are delusional. She c/o inability to see out of her right eye, but MD observed patient reading notes she had written w/o loss of vision. Dr. Conde saw patient on but stated patient was too disorganized to obtain any coherent information about her complaints. 2. Patient continues to refuse psych meds. 3. Court hearing for involuntary medications scheduled on 01/09/19. 4. STC 01/04/19 14:55 1. Continues to refuse medications, saying "I'm allergic to all drugs." 2. Patient aware of court hearing on 01/09/19, but says she wants a "new foreman or supervisor and operator. " 3. STC Subjective: Patient says she doesn't feel well b/c she's "under black magic" and only "[employer]" will help. Patient continues to refuse all psych meds. She says she knows she will probably lose her court hearing on Saturday, but insists she can't take meds b/c "I"m allergic to all drugs." She still insists she needs to see a "psychologist" for talk therapy b/c psychiatrists "only want to push meds" on her. Objective: Vital Signs Temp Pulse Resp BP Pulse Ox 37 C 77 16 125/63 H 98 01/04/19 06:00 01/04/19 06:00 01/04/19 06:00 01/04/19 06:00 01/04/19 06:00 MSE: Affect: Euthymic Mood: "OK" TP: Disorganized, illogical TC: Denies any SI/HI, still has paranoid delusions, somatic delusions Insight/Judgment: Impaired - Time Spent With Patient Time Spent With Patient: 15" - Pending Discharge Pending Discharge Within 24 Hours: No Pending Discharge Within 48 Hours: No ICD10 Worksheet Patient Problems: Problems Problem Status Onset Acute psychosis Acute Unspecified psychosis Acute
[2019-01-04] MEDS: OLANZapine DISINTEGR 10 MG TAB PO SCH (20:24)
[2019-01-05] MEDS: PSYLLIUM METAMUCIL 1 PKT PO SCH (05:57)
[2019-01-05] MEDS: NICOTINE POLACRILEX 2 MG GUM B PRN ×2 (09:01→13:12)
--- NOTE | 2019-01-05 12:39 | SOAPPROG ---
SOAP Progress Note Assessment/Plan: Assessment: Per Balbir Kay's note: Unspecified Psychosis. R/O Schizoaffective Disorder, Bipolar Type. R/O Delusional Disorder. No improvement noted. (see subjective/objective note). Patient is not safe to discharge at this time as patient continues to exhibit signs of psychosis, and express psychosis symptoms. Patient requires continued inpatient care because of current psychosis, and requires inpatient level of care to stabilize in order to no longer be gravely disabled due to mental illness. Patient is unable to communicate her basic needs, unable to test reality, and continues to require prompting and direction from staff for ADLs. Patient exhibits inability to provide for herself, neglecting self-care, withdrawn from social interactions, currently shows inability to maintain any appropriate aspect of personal responsibility as an adult, patient becomes agitated and irritable easily and continues exhibited irritable behavior toward staff. Support system has inability to manage functional impairment at lower level of care. Patient could benefit from continued inpatient hospitalization for crisis stabilization, safety, and medication evaluation. Dr. Zhang's note from treatment team meeting on 01/01/19: Pt seen in Treatment Team meeting this morning. She remains delusional, disorganized. States she cannot take medications because she is Latter-Day. "I don't believe in medications because I'm Latter-Day. The Latter-Day Jain is the holy foundation of western medicine, so medications are blessed to heal people. That's why I can't take them." Quite paranoid in interview, hostile, antagonistic and oppositional, frequently arguing in an adolescent manner haleigh to "I know you are but what am I." Unable to effectively communicate with team or participate in care. Hearing for COM scheduled for 01/09/19 at 1030. WEEKEND PLAN: 01/03/19 17:07 1. Patient continues to list numerous somatic complaints that are delusional. She c/o inability to see out of her right eye, but MD observed patient reading notes she had written w/o loss of vision. Dr. Conde saw patient on but stated patient was too disorganized to obtain any coherent information about her complaints. 2. Patient continues to refuse psych meds. 3. Court hearing for involuntary medications scheduled on 01/09/19. 4. STC 01/04/19 14:55 1. Continues to refuse medications, saying "I'm allergic to all drugs." 2. Patient aware of court hearing on 01/09/19, but says she wants a "new community relations advisor. " 3. [facility] 01/05/19 12:36 1. Patient c/o "bleeding in my brain." 2. Patient expresses paranoia that FBI are causing harm to her family. 3. Patient continues to refuse antipsychotic meds. 4. Court hearing for involuntary meds on 01/09/19. Subjective: Patient well-groomed and appropriately dressed, wearing same fleece sweater she wore all weekend. Patient has somatic delusion that she has a "bleed" in her brain. She also has paranoid delusions that FBI are hurting her kids. Objective: Vital Signs Temp Pulse Resp BP Pulse Ox 36.7 C 76 16 103/65 99 01/05/19 06:00 01/05/19 06:00 01/05/19 06:00 01/05/19 06:00 01/05/19 06:00 MSE: Affect: Flat Mood: "OK" TP: Disorganized, illogical TC: Denies any SI, continues to express paranoid and somatic delusions Insight/Judgment: Poor - Time Spent With Patient Time Spent With Patient: 15" - Pending Discharge Pending Discharge Within 24 Hours: No Pending Discharge Within 48 Hours: No ICD10 Worksheet Patient Problems: Problems Problem Status Onset Acute psychosis Acute Unspecified psychosis Acute
[2019-01-05] MEDS: MAGNESIUM HYDROXIDE 30 ML UDCUP PO PRN (13:12)
--- NOTE | 2019-01-05 14:42 | ASMTCMCOM ---
CM Note CM Note Notes: Pt. reports feeling "very stressed out". Pt. shared how she attended a retreat in [place] "that took sacrfices" where someone would pay to save their souls, pt adding the people who paid are now on an "adventist islamic killing list". Pt. stated her oldest daughter is gifted and has been to three different gifted schools, adding "trafficking at each school". Pt. stated the FBI has interviewed her child in the past when pt disagreed with her exHOC.PT. stated she has a heart mummer due to being breast fed. Pt. stated she took a terminal cat into her home to learn more about how to help someone who is dying. Pt. stated this cat is probably in her house and requested the [employer] number to call and have it removed. Pt. stated she is "definatly not thinking straight". Pt. reports "feeling pretty abandoned". Pt. stated she is "paranoia about my blood clotting too much" and requested a baby aspirin Pt. stated she is "getting stuck and unable to connect with my friends and family". Pt. stated she does not want to get social security benefits. Pt. stated her exHOC filed bankruptcy and possibly stated she was at that time. Pt. believes her phone has been "swipped or in the nursing home". Pt. requested to have a pastoral visit. RN notified. Pt. presents as alert, rambling, pressured speech, staring eye contact, inappropriate smiling, wearing several layers of clothing, and mostly cooperative. Staff report pt. sleeping 6 hours and refusing Zyprexa. Pt. has a court hearing on 01/09/19 at 10:30am Date Signed: 01/05/2019 02:42 PM Electronically Signed By:Aga Sanders
[2019-01-05] MEDS: OLANZapine DISINTEGR 10 MG TAB PO SCH (20:34)
[2019-01-06] MEDS: NICOTINE POLACRILEX 2 MG GUM B PRN ×3 (06:39→17:40)
--- NOTE | 2019-01-06 08:03 | SOAPPROG ---
SOAP Progress Note Assessment/Plan: Assessment: Unspecified Psychosis. R/O Schizoaffective Disorder, Bipolar Type. R/O Delusional Disorder. Acute psychosis; continues to refuse antipsychotic medication. No improvement noted. (see subjective/objective note). Patient is not safe to discharge at this time as patient continues to exhibit signs of psychosis, and express psychosis symptoms. Patient requires continued inpatient care because of current psychosis, and requires inpatient level of care to stabilize in order to no longer be gravely disabled due to mental illness. Patient is unable to communicate her basic needs, unable to test reality, and continues to require prompting and direction from staff for ADLs. Patient exhibits inability to provide for herself, neglecting self-care, withdrawn from social interactions, currently shows inability to maintain any appropriate aspect of personal responsibility as an adult, patient becomes agitated and irritable easily and continues exhibited irritable behavior toward staff. Support system has inability to manage functional impairment at lower level of care. Patient could benefit from continued inpatient hospitalization for crisis stabilization, safety, and medication evaluation. Plan: 1. Psychotropic medications: No medication changes at this time as more time is needed to determine ongoing tolerability and efficacy. Plan is to continue to observe patient for response and side effects from medications, and ongoing monitoring and evaluation. Education patient on the importance of taking medications as prescribed. 2. Review with patient informed consent and recommendations for psychotropic medication treatment listed below 3. Labs: no additional labs at this time 4. Therapy: continue milieu and group therapy 5. Further investigation including gathering information from patients relatives and review of past case records to inform treatment plan. 6. Safety/Wellness plan and follow-up outpatient appointments to be established prior to discharge. Next steps are for patient to meet with auto care center manager to plan a safe discharge plan and establish outpatient services for ongoing treatment. 7. Confer with inpatient treatment team regarding treatment plan. 8. Psychosocial stressors addressed through manager of case 9. Legal status: [facility] 10. Consider discharge next week if patient is in stable condition, safe, and has a safe discharge plan. PSYCHOTROPIC MEDICATION TREATMENT INFORMED CONSENT and RECOMMENDATIONS: Review nature of condition, diagnosis, and prognosis. Review nature and purpose of psychotropic medication treatment. Review type of psychotropic medications being ordered. Review risk and benefits of psychotropic medication treatment. Review probable length of time patient will need to take medications. Review risk and benefits of not undergoing psychotropic medication treatment. Review alternative treatments to psychotropic medications. Review psychotropic medications contraindications, drug-drug interactions, side effects, and importance of reporting any side effects to a psychiatric provider or nurse during inpatient hospitalization, and upon discharge to patients psychiatric outpatient provider, primary care provider, or other health childcare attendant. Review importance of asking a nurse, psychiatric provider, or primary care provider any questions or problems concerning the psychotropic medications. Verify patient understands the information that has been provided, and understands, accepts, and agrees to psychotropic medications. Review patients safety plan and importance of patient to report to staff while hospitalized if patient is ever a danger to self/others, or unable to care for self, and upon discharge, the importance for patient to contact [facility] or [facility], or go to the nearest emergency room, if patient is ever a danger to self/others, or unable to care for self. Recommend that upon discharge patient establish medication management treatment with a psychiatric provider, establishes routine therapy appointments, and follow-up with primary care provider. Verify patient understands and agrees to these recommendations. 01/06/19 08:02 Subjective: Following up with patient for evaluation of psychosis and safety. Patient reports, "I am doing okay. I would like a baby aspirin for because I have a slight nose bleed." Patient expresses the following psychiatric symptoms none. Patient refuses medications, states she does not need medications. Patient states, "I do not need these medications, they are mind altering, not good for my body. It is not good for me to be here because being around people that are mentally unstable is not good." Objective: Vital Signs Temp Pulse Resp BP Pulse Ox 36.9 C 92 15 113/57 L 97 01/06/19 06:00 01/06/19 06:00 01/06/19 06:00 01/06/19 06:00 01/06/19 06:00 NURSING REPORT: Consulted with nursing for update on patients progress in treatment. Nurses report patient is not engaged in treatment, is not attending groups, slept 8 hours, expresses the following psychiatric symptoms: delusions, exhibits the following psychiatric symptoms: disorganized, nonsensical; is eating all meals, is not agreeable to medications, and denies SI/HI, denies A/V hallucinations, and reports delusions. MD REPORT FROM WEEKEND: No change. Still psychotic, refusing medications. COM Court Date: 01/09/19 MSE: The patient is a well-nourished female looking older than stated chronological age. Attire is appropriate dress is hospital garb. Grooming status is inappropriate and disheveled. Ambulation is independent. Gait is normal and coordinated. Posture is normal. Eye contact is inappropriate and staring. Motor activity is appropriate with purposeful, organized, coordinated movements; with no involuntary movements. Attitude is cooperative, defensive and guarded at times. Patient appears fairly attentive and relates well to this interviewer. Language production is spontaneous. Rate is pressured. Latency of response is shortened with irritable tone. Articulation is clear. Patient reports mood as okay with expansive and inappropriate affect. Patients thought process is disorganized, non-linear and illogical, with loose associations, nonsensical. Patient does not report suicidal/homicidal thoughts , ideas, or plans. Patient denies auditory, visual hallucinations. Patient reports delusions. Patient does not appear to be attending to internal stimuli. Patients attention and concentration are poor. Patient is oriented to person, place, and time. Patients insight is poor. Patients judgment is poor. - Time Spent With Patient Time Spent With Patient: 15 minutes, met with patient individually. - Pending Discharge Pending Discharge Within 24 Hours: No Pending Discharge Within 48 Hours: No ICD10 Worksheet Patient Problems: Problems Problem Status Onset Acute psychosis Acute Unspecified psychosis Acute
[2019-01-06] MEDS: PSYLLIUM METAMUCIL 1 PKT PO SCH (08:46)
[2019-01-06] MEDS ORDERED: SENNOSIDES 1 TAB PO PRN (13:42)
[2019-01-06] MEDS: OLANZapine DISINTEGR 10 MG TAB PO SCH (20:13)
--- NOTE | 2019-01-07 07:43 | SOAPPROG ---
SOAP Progress Note Assessment/Plan: Assessment: Unspecified Psychosis. R/O Schizoaffective Disorder, Bipolar Type. R/O Delusional Disorder. Acute psychosis; continues to refuse antipsychotic medication. No improvement noted. (see subjective/objective note). Patient is not safe to discharge at this time as patient continues to exhibit signs of psychosis, and express psychosis symptoms. Patient requires continued inpatient care because of current psychosis, and requires inpatient level of care to stabilize in order to no longer be gravely disabled due to mental illness. Patient is unable to communicate her basic needs, unable to test reality, and continues to require prompting and direction from staff for ADLs. Patient exhibits inability to provide for herself, neglecting self-care, withdrawn from social interactions, currently shows inability to maintain any appropriate aspect of personal responsibility as an adult, patient becomes agitated and irritable easily and continues exhibited irritable behavior toward staff. Support system has inability to manage functional impairment at lower level of care. Patient could benefit from continued inpatient hospitalization for crisis stabilization, safety, and medication evaluation. Plan: 1. Psychotropic medications: No medication changes at this time as more time is needed to determine ongoing tolerability and efficacy. Plan is to continue to observe patient for response and side effects from medications, and ongoing monitoring and evaluation. Education patient on the importance of taking medications as prescribed. 2. Review with patient informed consent and recommendations for psychotropic medication treatment listed below 3. Labs: no additional labs at this time 4. Therapy: continue milieu and group therapy 5. Further investigation including gathering information from patients relatives and review of past case records to inform treatment plan. 6. Safety/Wellness plan and follow-up outpatient appointments to be established prior to discharge. Next steps are for patient to meet with skin care therapist to plan a safe discharge plan and establish outpatient services for ongoing treatment. 7. Confer with inpatient treatment team regarding treatment plan. 8. Psychosocial stressors addressed through block and case maker 9. Legal status: [facility] 10. Consider discharge next week if patient is in stable condition, safe, and has a safe discharge plan. PSYCHOTROPIC MEDICATION TREATMENT INFORMED CONSENT and RECOMMENDATIONS: Review nature of condition, diagnosis, and prognosis. Review nature and purpose of psychotropic medication treatment. Review type of psychotropic medications being ordered. Review risk and benefits of psychotropic medication treatment. Review probable length of time patient will need to take medications. Review risk and benefits of not undergoing psychotropic medication treatment. Review alternative treatments to psychotropic medications. Review psychotropic medications contraindications, drug-drug interactions, side effects, and importance of reporting any side effects to a psychiatric provider or nurse during inpatient hospitalization, and upon discharge to patients psychiatric outpatient provider, primary care provider, or other health career discovery teacher. Review importance of asking a nurse, psychiatric provider, or primary care provider any questions or problems concerning the psychotropic medications. Verify patient understands the information that has been provided, and understands, accepts, and agrees to psychotropic medications. Review patients safety plan and importance of patient to report to staff while hospitalized if patient is ever a danger to self/others, or unable to care for self, and upon discharge, the importance for patient to contact [facility] or [facility], or go to the nearest emergency room, if patient is ever a danger to self/others, or unable to care for self. Recommend that upon discharge patient establish medication management treatment with a psychiatric provider, establishes routine therapy appointments, and follow-up with primary care provider. Verify patient understands and agrees to these recommendations. 01/07/19 07:43 Subjective: Following up with patient for evaluation of psychosis and safety. Patient reports, "I am working on [employer] type things. I am from the [employer]. That's why I cannot take these medications." Patient expresses the following psychiatric symptoms none. Objective: Vital Signs Temp Pulse Resp BP Pulse Ox 36.4 C 98 16 111/59 L 97 01/07/19 06:00 01/07/19 06:00 01/07/19 06:00 01/07/19 06:00 01/07/19 06:00 NURSING REPORT: Consulted with nursing for update on patients progress in treatment. Nurses report patient is not engaged in treatment, is not attending groups, slept 8 hours, expresses the following psychiatric symptoms: delusions, exhibits the following psychiatric symptoms: disorganized, nonsensical; is eating all meals, is not agreeable to medications, and denies SI/HI, denies A/V hallucinations, and reports delusions. MD REPORT FROM WEEKEND: No change. Still psychotic, refusing medications. COM Court Date: 01/09/19 MSE: The patient is a well-nourished female looking older than stated chronological age. Attire is appropriate dress is hospital garb. Grooming status is inappropriate and disheveled. Ambulation is independent. Gait is normal and coordinated. Posture is normal. Eye contact is inappropriate and staring. Motor activity is appropriate with purposeful, organized, coordinated movements; with no involuntary movements. Attitude is cooperative, defensive and guarded at times. Patient appears fairly attentive and relates well to this interviewer. Language production is spontaneous. Rate is pressured. Latency of response is shortened with irritable tone. Articulation is clear. Patient reports mood as okay with expansive and inappropriate affect. Patients thought process is disorganized, non-linear and illogical, with loose associations, nonsensical. Patient does not report suicidal/homicidal thoughts , ideas, or plans. Patient denies auditory, visual hallucinations. Patient reports delusions. Patient does not appear to be attending to internal stimuli. Patients attention and concentration are poor. Patient is oriented to person, place, and time. Patients insight is poor. Patients judgment is poor. - Time Spent With Patient Time Spent With Patient: 15 minutes, met with patient individually. - Pending Discharge Pending Discharge Within 24 Hours: No Pending Discharge Within 48 Hours: No ICD10 Worksheet Patient Problems: Problems Problem Status Onset Acute psychosis Acute Unspecified psychosis Acute
[2019-01-07] MEDS: NICOTINE POLACRILEX 2 MG GUM B PRN (18:31)
[2019-01-07] MEDS: OLANZapine DISINTEGR 10 MG TAB PO SCH (20:10)
[2019-01-08] MEDS: MAG HYDROX/AL HYDROX/SIMETH 30 ML UDCUP PO PRN (03:26)
[2019-01-08] MEDS ORDERED: PSYLLIUM METAMUCIL 1 PKT PO PRN (07:59)
--- NOTE | 2019-01-08 07:59 | SOAPPROG ---
SOAP Progress Note Assessment/Plan: Assessment: Unspecified Psychosis. R/O Schizoaffective Disorder. R/O Delusional Disorder. Acute psychosis; continues to refuse antipsychotic medication. No improvement noted. (see subjective/objective note). Patient is not safe to discharge at this time as patient continues to exhibit signs of psychosis, and express psychosis symptoms. Patient requires continued inpatient care because of current psychosis, and requires inpatient level of care to stabilize in order to no longer be gravely disabled due to mental illness. Patient is unable to communicate her basic needs, unable to test reality, and continues to require prompting and direction from staff for ADLs. Patient exhibits inability to provide for herself, neglecting self-care, withdrawn from social interactions, currently shows inability to maintain any appropriate aspect of personal responsibility as an adult, patient becomes agitated and irritable easily and continues exhibited irritable behavior toward staff. Support system has inability to manage functional impairment at lower level of care. Patient could benefit from continued inpatient hospitalization for crisis stabilization , safety, and medication evaluation. Plan: 1. Psychotropic medications: No medication changes at this time as more time is needed to determine ongoing tolerability and efficacy. Plan is to continue to observe patient for response and side effects from medications, and ongoing monitoring and evaluation. Education patient on the importance of taking medications as prescribed. 2. Review with patient informed consent and recommendations for psychotropic medication treatment listed below 3. Labs: no additional labs at this time 4. Therapy: continue milieu and group therapy 5. Further investigation including gathering information from patients relatives and review of past case records to inform treatment plan. 6. Safety/Wellness plan and follow-up outpatient appointments to be established prior to discharge. Next steps are for patient to meet with caregiver services home to plan a safe discharge plan and establish outpatient services for ongoing treatment. 7. Confer with inpatient treatment team regarding treatment plan. 8. Psychosocial stressors addressed through special education case manager 9. Legal status: [facility] 10. Consider discharge next week if patient is in stable condition, safe, and has a safe discharge plan. PSYCHOTROPIC MEDICATION TREATMENT INFORMED CONSENT and RECOMMENDATIONS: Review nature of condition, diagnosis, and prognosis. Review nature and purpose of psychotropic medication treatment. Review type of psychotropic medications being ordered. Review risk and benefits of psychotropic medication treatment. Review probable length of time patient will need to take medications. Review risk and benefits of not undergoing psychotropic medication treatment. Review alternative treatments to psychotropic medications. Review psychotropic medications contraindications, drug-drug interactions, side effects, and importance of reporting any side effects to a psychiatric provider or nurse during inpatient hospitalization, and upon discharge to patients psychiatric outpatient provider, primary care provider, or other health medicare insurance specialist. Review importance of asking a nurse, psychiatric provider, or primary care provider any questions or problems concerning the psychotropic medications. Verify patient understands the information that has been provided, and understands, accepts, and agrees to psychotropic medications. Review patients safety plan and importance of patient to report to staff while hospitalized if patient is ever a danger to self/others, or unable to care for self, and upon discharge, the importance for patient to contact [facility] or [facility], or go to the nearest emergency room, if patient is ever a danger to self/others, or unable to care for self. Recommend that upon discharge patient establish medication management treatment with a psychiatric provider, establishes routine therapy appointments, and follow-up with primary care provider. Verify patient understands and agrees to these recommendations. 01/08/19 07:57 Subjective: Following up with patient for evaluation of psychosis and safety. Patient reports, "I am not taking Zyprexa, it is known as crack cocaine on the street. Can't you see I have paralysis in my face, I cant close this eye, and I am nauseous because of all the lights being on." Patient expresses the following psychiatric symptoms none. Patient continues to refuse medications. Objective: Vital Signs Temp Pulse Resp BP Pulse Ox 36.8 C 75 16 127/58 H 99 01/08/19 06:00 01/08/19 06:00 01/08/19 06:00 01/08/19 06:00 01/08/19 06:00 NURSING REPORT: Consulted with nursing for update on patients progress in treatment. Nurses report patient is not engaged in treatment, is not attending groups, slept 8 hours, expresses the following psychiatric symptoms: delusions, exhibits the following psychiatric symptoms: disorganized, nonsensical; is eating all meals, is not agreeable to medications, and denies SI/HI, denies A/V hallucinations, and reports delusions. COM Court Date: 01/09/19 MSE: The patient is a well-nourished female looking older than stated chronological age. Attire is appropriate dress is hospital garb. Grooming status is inappropriate and disheveled. Ambulation is independent. Gait is normal and coordinated. Posture is normal. Eye contact is inappropriate and staring. Motor activity is appropriate with purposeful, organized, coordinated movements; with no involuntary movements. Attitude is cooperative, defensive and guarded at times. Patient appears fairly attentive and relates well to this interviewer. Language production is spontaneous. Rate is pressured. Latency of response is shortened with irritable tone. Articulation is clear. Patient reports mood as okay with expansive and inappropriate affect. Patients thought process is disorganized, non-linear and illogical, with loose associations, nonsensical. Patient does not report suicidal/homicidal thoughts , ideas, or plans. Patient denies auditory, visual hallucinations. Patient reports delusions. Patient does not appear to be attending to internal stimuli. Patients attention and concentration are poor. Patient is oriented to person, place, and time. Patients insight is poor. Patients judgment is poor. - Time Spent With Patient Time Spent With Patient: 15 minutes, met with patient individually. - Pending Discharge Pending Discharge Within 24 Hours: No Pending Discharge Within 48 Hours: No ICD10 Worksheet Patient Problems: Problems Problem Status Onset Acute psychosis Acute Unspecified psychosis Acute
[2019-01-08] MEDS: NICOTINE POLACRILEX 2 MG GUM B PRN (17:38)
[2019-01-08] MEDS: OLANZapine DISINTEGR 10 MG TAB PO SCH (19:35)
[2019-01-09] MEDS ORDERED: PALIPERIDONE 3 MG TAB.ER PO ONE (12:35)
[2019-01-09] MEDS: NICOTINE POLACRILEX 2 MG GUM B PRN (12:45)
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
--- NOTE | 2019-01-09 15:36 | SOAPPROG ---
SOAP Progress Note Assessment/Plan: Assessment: Plan: 01/09/19 15:37 Psychosis: Remains delusional. Will proceed with involuntary treatment under court order. Will start with Invega 3mg daily, monitor. Subjective: Pt seen, discussed with staff. 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 She later told her commercial real estate attorney she had "molten liquid diarrhea." I appeared in court on involuntary medication petition and it was granted by the crate repairer after a full hearing. He ordered that the written order be provided for his signature no later than 01/13/19, but emphasized that the order is entered and active as of his ruling today per usual. Objective: Vital Signs Temp Pulse Resp BP Pulse Ox 37.1 C 76 16 114/56 L 99 01/09/19 06:00 01/09/19 06:00 01/09/19 06:00 01/09/19 06:00 01/09/19 06:00 MSE: Agitated, anxious, dramatic. Affect is restricted. Mood is "terrible." TP is tangential. TC reveals continued paranoid, somatic, bahai and grandiose delusions. - Time Spent With Patient Time Spent With Patient: 55" ICD10 Worksheet Patient Problems: Problems Problem Status Onset Acute psychosis Acute Unspecified psychosis Acute
[2019-01-09] MEDS: PALIPERIDONE 3 MG TAB.ER PO SCH (17:41)
[2019-01-09] MEDS: ACETAMINOPHEN 325 MG TAB PO PRN (17:41)
[2019-01-09] MEDS: MAG HYDROX/AL HYDROX/SIMETH 30 ML UDCUP PO PRN (17:41)
[2019-01-09] MEDS ORDERED: OLANZapine 10 MG/2 ML VIAL IM PRN (18:00)
[2019-01-10] MEDS: MAG HYDROX/AL HYDROX/SIMETH 30 ML UDCUP PO PRN ×2 (06:27→18:07)
[2019-01-10] MEDS: ACETAMINOPHEN 325 MG TAB PO PRN ×2 (07:34→18:10)
[2019-01-10] MEDS ORDERED: PALIPERIDONE 3 MG TAB.ER PO SCH (09:00)
[2019-01-10] MEDS ORDERED: OLANZapine DISINTEGR 10 MG TAB PO PRN (17:04)
--- NOTE | 2019-01-10 17:10 | SOAPPROG ---
SOAP Progress Note Assessment/Plan: Assessment: Dr. Zhang's note from 01/09/19: Plan: Psychosis: Remains delusional. Will proceed with involuntary treatment under court order. Will start with Invega 3mg daily, monitor. Subjective: Pt seen, discussed with staff. 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 She later told her defense attorney she had "molten liquid diarrhea." I appeared in court on involuntary medication petition and it was granted by the architectural designer after a full hearing. He ordered that the written order be provided for his signature no later than 01/13/19, but emphasized that the order is entered and active as of his ruling today per usual. WEEKEND PLAN: 1. Patient took Invega 3mg yesterday after court ordered involuntary medications per Dr. Zhang's note. 2. Patient still claims she doesn't need meds and continues to have paranoid, somatic and sikhism delusions. 3. STC/COM Subjective: Patient told staff she didn't go to court yesterday b/c she thought she would "get infected" if she left the building. Patient continues to have sikhism delusions and repeatedly asks staff for phone numbers to contact local churches , but won't say why she wants to contact them. Court ordered involuntary medications, and Dr. Zhang ordered Invega 3mg daily, which patient took yesterday but complained she "don't need it." Objective: Vital Signs Temp Pulse Resp BP Pulse Ox 36.8 C 78 14 118/62 97 01/10/19 06:00 01/10/19 06:00 01/10/19 06:00 01/10/19 06:00 01/10/19 06:00 MSE: Affect: Labile Mood: "Bad" TP: Disorganized, illogical TC: Denies any SI /HI, still has paranoid, somatic delusions, hyper-sikhism Insight/Judgment: Impaired - Time Spent With Patient Time Spent With Patient: 15" - Pending Discharge Pending Discharge Within 24 Hours: No Pending Discharge Within 48 Hours: No ICD10 Worksheet Patient Problems: Problems Problem Status Onset Acute psychosis Acute Unspecified psychosis Acute
[2019-01-10] MEDS: NICOTINE POLACRILEX 2 MG GUM B PRN (17:27)
[2019-01-10] MEDS: PALIPERIDONE 3 MG TAB.ER PO SCH (18:07)
[2019-01-11] MEDS: ACETAMINOPHEN 325 MG TAB PO PRN (06:33)
[2019-01-11] MEDS: MAG HYDROX/AL HYDROX/SIMETH 30 ML UDCUP PO PRN (06:33)
[2019-01-11] MEDS: NICOTINE POLACRILEX 2 MG GUM B PRN ×2 (12:41→15:56)
--- NOTE | 2019-01-11 15:36 | ASMTCMCOM ---
CM Note CM Note Notes: The patient was started on COM yesterday; she took medication orally. The patient stated that she "wasn't sure" how she was feeling today. The patient requested phone numbers for two local churches. The patient was later visited by a community vacuum applicator operator. Date Signed: 01/11/2019 03:35 PM Electronically Signed By:Louisa Maher
[2019-01-11] MEDS: PALIPERIDONE 3 MG TAB.ER PO SCH (17:57)
[2019-01-11] MEDS: MAGNESIUM HYDROXIDE 30 ML UDCUP PO PRN (18:00)
--- NOTE | 2019-01-11 18:00 | SOAPPROG ---
SOAP Progress Note Assessment/Plan: Assessment: Dr. Zhang's note from 01/09/19: Plan: Psychosis: Remains delusional. Will proceed with involuntary treatment under court order. Will start with Invega 3mg daily, monitor. Subjective: Pt seen, discussed with staff. 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 She later told her disability attorney she had "molten liquid diarrhea." I appeared in court on involuntary medication petition and it was granted by the retail field merchandiser after a full hearing. He ordered that the written order be provided for his signature no later than 01/13/19, but emphasized that the order is entered and active as of his ruling today per usual. WEEKEND PLAN: 1. Patient took Invega 3mg yesterday after court ordered involuntary medications per Dr. Zhang's note. 2. Patient still claims she doesn't need meds and continues to have paranoid, somatic and temple delusions. 3. [employer] 01/11/19 17:56 1. Patient had visit from screen vent binder today. She has been researching contact information for priests and calling several churches. 2. Patient has taken Invega PO as ordered by court. 3. Patient refuses to take 650mg of Tylenol. She will only take 325mg. MD will change order to allow lower dose. 4. [employer] Subjective: Patient well-groomed and present in milieu watching TV. She attends groups, but often monopolizes conversation. She has limited engagement with peers. She called several churches today and a screen vent binder did come to visit her on unit. Objective: Vital Signs Temp Pulse Resp BP Pulse Ox 36.8 C 72 16 103/55 L 97 01/11/19 06:00 01/11/19 06:00 01/11/19 06:00 01/11/19 06:00 01/11/19 06:00 MSE: Affect: Labile Mood: "OK" TP: Disorganized, illogical TC: Denies any SI/ HI, still has paranoid and temple delusions, less somatic delusions today Insight/Judgment: Poor - Time Spent With Patient Time Spent With Patient: 15" - Pending Discharge Pending Discharge Within 24 Hours: No Pending Discharge Within 48 Hours: No ICD10 Worksheet Patient Problems: Problems Problem Status Onset Acute psychosis Acute Unspecified psychosis Acute
[2019-01-12] MEDS: MAGNESIUM HYDROXIDE 30 ML UDCUP PO PRN (06:07)
--- NOTE | 2019-01-12 08:44 | SOAPPROG ---
SOAP Progress Note Assessment/Plan: Assessment: Unspecified Psychosis. R/O Schizoaffective Disorder. R/O Delusional Disorder. R/O Schizophrenia. Current acute psychosis, delusional. No improvement noted. (see subjective/objective note). Patient is not safe to discharge at this time as patient continues to exhibit signs of psychosis, and express psychosis symptoms. Patient requires continued inpatient care because of current psychosis, and requires inpatient level of care to stabilize in order to no longer be gravely disabled due to mental illness. Patient is unable to communicate her basic needs, unable to test reality, and continues to require prompting and direction from staff for ADLs. Patient exhibits inability to provide for herself, neglecting self-care, withdrawn from social interactions, currently shows inability to maintain any appropriate aspect of personal responsibility as an adult, patient becomes agitated and irritable easily and continues exhibited irritable behavior toward staff. Support system has inability to manage functional impairment at lower level of care. Patient could benefit from continued inpatient hospitalization for crisis stabilization , safety, and medication evaluation. Plan: 1. Psychotropic medications: Increase Invega to 6 mg po QD. Plan is to continue to observe patient for response and side effects from medications, and ongoing monitoring and evaluation. Education patient on the importance of taking medications as prescribed. 2. Review with patient informed consent and recommendations for psychotropic medication treatment listed below 3. Labs: no additional labs at this time 4. Therapy: continue milieu and group therapy 5. Further investigation including gathering information from patients relatives and review of past case records to inform treatment plan. 6. Safety/Wellness plan and follow-up outpatient appointments to be established prior to discharge. Next steps are for patient to meet with manager care to plan a safe discharge plan and establish outpatient services for ongoing treatment. 7. Confer with inpatient treatment team regarding treatment plan. 8. Psychosocial stressors addressed through manager of case management 9. Legal status: STC/COM 10. Consider discharge next week if patient is in stable condition, safe, and has a safe discharge plan. PSYCHOTROPIC MEDICATION TREATMENT INFORMED CONSENT and RECOMMENDATIONS: Review nature of condition, diagnosis, and prognosis. Review nature and purpose of psychotropic medication treatment. Review type of psychotropic medications being ordered. Review risk and benefits of psychotropic medication treatment. Review probable length of time patient will need to take medications. Review risk and benefits of not undergoing psychotropic medication treatment. Review alternative treatments to psychotropic medications. Review psychotropic medications contraindications, drug-drug interactions, side effects, and importance of reporting any side effects to a psychiatric provider or nurse during inpatient hospitalization, and upon discharge to patients psychiatric outpatient provider, primary care provider, or other health summer child caregiver. Review importance of asking a nurse, psychiatric provider, or primary care provider any questions or problems concerning the psychotropic medications. Verify patient understands the information that has been provided, and understands, accepts, and agrees to psychotropic medications. Review patients safety plan and importance of patient to report to staff while hospitalized if patient is ever a danger to self/others, or unable to care for self, and upon discharge, the importance for patient to contact [facility] or [facility], or go to the nearest emergency room, if patient is ever a danger to self/others, or unable to care for self. Recommend that upon discharge patient establish medication management treatment with a psychiatric provider, establishes routine therapy appointments, and follow-up with primary care provider. Verify patient understands and agrees to these recommendations. 01/12/19 08:42 Subjective: Following up with patient for evaluation of psychosis and safety. Patient reports, "Will you please use language I can understand. I am having terrible symptoms, anal bleeding, my nose is bleeding, I have facial paralysis, my eye is now starting to move with Tylenol. I do not want to end up in coma and here." Patient reports taking medications as prescribed. Objective: Vital Signs Temp Pulse Resp BP Pulse Ox 36.5 C 80 14 111/54 L 98 01/12/19 06:00 01/12/19 06:00 01/12/19 06:00 01/12/19 06:00 01/12/19 06:00 NURSING REPORT: Consulted with nursing for update on patients progress in treatment. Nurses report patient is not engaged in treatment, is not attending groups, slept 8 hours, expresses the following psychiatric symptoms: delusions, exhibits the following psychiatric symptoms: disorganized, nonsensical; is eating all meals, is not agreeable to medications, and denies SI/HI, denies A/V hallucinations, and reports delusions. MSE: The patient is a well-nourished female looking older than stated chronological age. Attire is appropriate dress is hospital garb. Grooming status is inappropriate and disheveled. Ambulation is independent. Gait is normal and coordinated. Posture is normal. Eye contact is inappropriate and staring. Motor activity is appropriate with purposeful, organized, coordinated movements; with no involuntary movements. Attitude is cooperative, defensive and guarded at times. Patient appears fairly attentive and relates well to this interviewer. Language production is spontaneous. Rate is pressured. Latency of response is shortened with irritable tone. Articulation is clear. Patient reports mood as okay with expansive and inappropriate affect. Patients thought process is disorganized, non-linear and illogical, with loose associations, nonsensical. Patient does not report suicidal/homicidal thoughts , ideas, or plans. Patient denies auditory, visual hallucinations. Patient reports delusions. Patient does not appear to be attending to internal stimuli. Patients attention and concentration are poor. Patient is oriented to person, place, and time. Patients insight is poor. Patients judgment is poor. - Time Spent With Patient Time Spent With Patient: 15 minutes, met with patient individually. - Pending Discharge Pending Discharge Within 24 Hours: No Pending Discharge Within 48 Hours: No ICD10 Worksheet Patient Problems: Problems Problem Status Onset Acute psychosis Acute Unspecified psychosis Acute
--- NOTE | 2019-01-12 11:47 | ASMTCMCOM ---
CM Note CM Note Notes: The patient reported that the psychotropic medication is causing her to feel "numb and be unable to function." She requested Melatonin be added to her medication regimen due to "fragmented sleep." She continues to report somatic complaints including "lip swelling" and a "bleeding nose." The patient reported that she was practicing "balance." She was grateful to be visited by clergy over the weekend. She stated, "It was important to meet with someone of morality." The patient reported that she was able to participate in communion and reconciliation. She reported feeling "ioslated" prior to this visit. Additionally, the visit helped the patient to "feel safer" and "heal." Date Signed: 01/12/2019 11:46 AM Electronically Signed By:Louisa Maher
[2019-01-12] MEDS: MAG HYDROX/AL HYDROX/SIMETH 30 ML UDCUP PO PRN (18:14)
[2019-01-12] MEDS: PALIPERIDONE 3 MG TAB.ER PO SCH (18:14)
[2019-01-12] MEDS: ACETAMINOPHEN 325 MG TAB PO PRN (18:15)
[2019-01-12] MEDS: NICOTINE POLACRILEX 2 MG GUM B PRN (22:41)
[2019-01-13] MEDS: ACETAMINOPHEN 325 MG TAB PO PRN ×2 (06:48→17:54)
--- NOTE | 2019-01-13 08:53 | SOAPPROG ---
SOAP Progress Note Assessment/Plan: Assessment: Unspecified Psychosis. R/O Schizoaffective Disorder. R/O Delusional Disorder. R/O Schizophrenia. Current acute psychosis, delusional. No improvement noted. (see subjective/objective note). Patient is not safe to discharge at this time as patient continues to exhibit signs of psychosis, and express psychosis symptoms. Patient requires continued inpatient care because of current psychosis, and requires inpatient level of care to stabilize in order to no longer be gravely disabled due to mental illness. Patient is unable to communicate her basic needs, unable to test reality, and continues to require prompting and direction from staff for ADLs. Patient exhibits inability to provide for herself, neglecting self-care, withdrawn from social interactions, currently shows inability to maintain any appropriate aspect of personal responsibility as an adult, patient becomes agitated and irritable easily and continues exhibited irritable behavior toward staff. Support system has inability to manage functional impairment at lower level of care. Patient could benefit from continued inpatient hospitalization for crisis stabilization , safety, and medication evaluation. Plan: 1. Psychotropic medications: No medication changes at this time. Plan is to continue to observe patient for response and side effects from medications, and ongoing monitoring and evaluation. Education patient on the importance of taking medications as prescribed. 2. Review with patient informed consent and recommendations for psychotropic medication treatment listed below 3. Labs: no additional labs at this time 4. Therapy: continue milieu and group therapy 5. Further investigation including gathering information from patients relatives and review of past case records to inform treatment plan. 6. Safety/Wellness plan and follow-up outpatient appointments to be established prior to discharge. Next steps are for patient to meet with career coach to plan a safe discharge plan and establish outpatient services for ongoing treatment. 7. Confer with inpatient treatment team regarding treatment plan. 8. Psychosocial stressors addressed through clinical case manager 9. Legal status: [facility]/COM 10. Consider discharge next week if patient is in stable condition, safe, and has a safe discharge plan. PSYCHOTROPIC MEDICATION TREATMENT INFORMED CONSENT and RECOMMENDATIONS: Review nature of condition, diagnosis, and prognosis. Review nature and purpose of psychotropic medication treatment. Review type of psychotropic medications being ordered. Review risk and benefits of psychotropic medication treatment. Review probable length of time patient will need to take medications. Review risk and benefits of not undergoing psychotropic medication treatment. Review alternative treatments to psychotropic medications. Review psychotropic medications contraindications, drug-drug interactions, side effects, and importance of reporting any side effects to a psychiatric provider or nurse during inpatient hospitalization, and upon discharge to patients psychiatric outpatient provider, primary care provider, or other health director of healthcare systems. Review importance of asking a nurse, psychiatric provider, or primary care provider any questions or problems concerning the psychotropic medications. Verify patient understands the information that has been provided, and understands, accepts, and agrees to psychotropic medications. Review patients safety plan and importance of patient to report to staff while hospitalized if patient is ever a danger to self/others, or unable to care for self, and upon discharge, the importance for patient to contact [facility] or [facility], or go to the nearest emergency room, if patient is ever a danger to self/others, or unable to care for self. Recommend that upon discharge patient establish medication management treatment with a psychiatric provider, establishes routine therapy appointments, and follow-up with primary care provider. Verify patient understands and agrees to these recommendations. 01/13/19 08:53 Subjective: Following up with patient for evaluation of psychosis and safety. Patient reports, "I am not doing too good. I was given a double-dose of the medication last night. Not sure why it was increased. I need a medication for my neurotransmitters to adapt to behavioralists. I am willing to take medications , it just needs to be the right medication." Patient reports taking medications as prescribed. Objective: Vital Signs Temp Pulse Resp BP Pulse Ox 36.8 C 70 14 100/56 L 96 01/13/19 06:00 01/13/19 06:00 01/13/19 06:00 01/13/19 06:00 01/13/19 06:00 NURSING REPORT: Consulted with nursing for update on patients progress in treatment. Nurses report patient is engaged in treatment, is attending groups, slept 8 hours, expresses the following psychiatric symptoms: delusions, exhibits the following psychiatric symptoms: disorganized, nonsensical; is eating all meals, is not agreeable to medications, and denies SI/HI, denies A/V hallucinations, and reports delusions. MSE: The patient is a well-nourished female looking older than stated chronological age. Attire is appropriate dress is hospital garb. Grooming status is inappropriate and disheveled. Ambulation is independent. Gait is normal and coordinated. Posture is normal. Eye contact is inappropriate and staring. Motor activity is appropriate with purposeful, organized, coordinated movements; with no involuntary movements. Attitude is cooperative, defensive and guarded at times. Patient appears fairly attentive and relates well to this interviewer. Language production is spontaneous. Rate is pressured. Latency of response is shortened with irritable tone. Articulation is clear. Patient reports mood as okay with expansive and inappropriate affect. Patients thought process is disorganized, non-linear and illogical, with loose associations, nonsensical. Patient does not report suicidal/homicidal thoughts , ideas, or plans. Patient denies auditory, visual hallucinations. Patient reports delusions. Patient does not appear to be attending to internal stimuli. Patients attention and concentration are poor. Patient is oriented to person, place, and time. Patients insight is poor. Patients judgment is poor. - Time Spent With Patient Time Spent With Patient: 15 minutes, met with patient individually. - Pending Discharge Pending Discharge Within 24 Hours: No Pending Discharge Within 48 Hours: No ICD10 Worksheet Patient Problems: Problems Problem Status Onset Acute psychosis Acute Unspecified psychosis Acute
[2019-01-13] MEDS: NICOTINE POLACRILEX 2 MG GUM B PRN ×3 (10:08→17:54)
[2019-01-13] MEDS: PALIPERIDONE 3 MG TAB.ER PO SCH (17:54)
[2019-01-13] MEDS: MAG HYDROX/AL HYDROX/SIMETH 30 ML UDCUP PO PRN (17:54)
[2019-01-14] MEDS: ACETAMINOPHEN 325 MG TAB PO PRN ×3 (05:00→17:54)
--- NOTE | 2019-01-14 08:21 | SOAPPROG ---
SOAP Progress Note Assessment/Plan: Assessment: Unspecified Psychosis. R/O Schizoaffective Disorder. R/O Delusional Disorder. R/O Schizophrenia. Current acute psychosis, delusional. No improvement noted. (see subjective/objective note). Patient is not safe to discharge at this time as patient continues to exhibit signs of psychosis, and express psychosis symptoms. Patient requires continued inpatient care because of current psychosis, and requires inpatient level of care to stabilize in order to no longer be gravely disabled due to mental illness. Patient is unable to communicate her basic needs, unable to test reality, and continues to require prompting and direction from staff for ADLs. Patient exhibits inability to provide for herself, neglecting self-care, withdrawn from social interactions, currently shows inability to maintain any appropriate aspect of personal responsibility as an adult, patient becomes agitated and irritable easily and continues exhibited irritable behavior toward staff. Support system has inability to manage functional impairment at lower level of care. Patient could benefit from continued inpatient hospitalization for crisis stabilization , safety, and medication evaluation. Plan: 1. Psychotropic medications: No medication changes at this time. Plan is to continue to observe patient for response and side effects from medications, and ongoing monitoring and evaluation. Education patient on the importance of taking medications as prescribed. 2. Review with patient informed consent and recommendations for psychotropic medication treatment listed below 3. Labs: no additional labs at this time 4. Therapy: continue milieu and group therapy 5. Further investigation including gathering information from patients relatives and review of past case records to inform treatment plan. 6. Safety/Wellness plan and follow-up outpatient appointments to be established prior to discharge. Next steps are for patient to meet with career services manager to plan a safe discharge plan and establish outpatient services for ongoing treatment. 7. Confer with inpatient treatment team regarding treatment plan. 8. Psychosocial stressors addressed through caser 9. Legal status: [facility] 10. Consider discharge next week if patient is in stable condition, safe, and has a safe discharge plan. PSYCHOTROPIC MEDICATION TREATMENT INFORMED CONSENT and RECOMMENDATIONS: Review nature of condition, diagnosis, and prognosis. Review nature and purpose of psychotropic medication treatment. Review type of psychotropic medications being ordered. Review risk and benefits of psychotropic medication treatment. Review probable length of time patient will need to take medications. Review risk and benefits of not undergoing psychotropic medication treatment. Review alternative treatments to psychotropic medications. Review psychotropic medications contraindications, drug-drug interactions, side effects, and importance of reporting any side effects to a psychiatric provider or nurse during inpatient hospitalization, and upon discharge to patients psychiatric outpatient provider, primary care provider, or other health foster care social worker. Review importance of asking a nurse, psychiatric provider, or primary care provider any questions or problems concerning the psychotropic medications. Verify patient understands the information that has been provided, and understands, accepts, and agrees to psychotropic medications. Review patients safety plan and importance of patient to report to staff while hospitalized if patient is ever a danger to self/others, or unable to care for self, and upon discharge, the importance for patient to contact [facility] or [facility], or go to the nearest emergency room, if patient is ever a danger to self/others, or unable to care for self. Recommend that upon discharge patient establish medication management treatment with a psychiatric provider, establishes routine therapy appointments, and follow-up with primary care provider. Verify patient understands and agrees to these recommendations. 01/14/19 08:20 Subjective: Following up with patient for evaluation of psychosis and safety. Patient reports, "Feel awful. Can't walk, can't talk, difficulty breathing, noises are louder, hearing other people is bad, to me it is like a form of torture. I am not going to improve in a behavioral clinic because I am [employer]. Hospital would be advanced enough to link cultural and the right medications. My parents are moralists. Doesn't make a lot of sense to use behavioral medicines. " Patient reports taking medications as prescribed. Objective: Vital Signs Temp Pulse Resp BP Pulse Ox 36.4 C 74 14 101/55 L 97 01/14/19 05:08 01/14/19 05:08 01/14/19 05:08 01/14/19 05:08 01/14/19 05:08 NURSING REPORT: Consulted with nursing for update on patients progress in treatment. Nurses report patient is engaged in treatment, is attending groups, slept 8 hours, expresses the following psychiatric symptoms: delusions, exhibits the following psychiatric symptoms: disorganized, nonsensical; is eating all meals, is not agreeable to medications, and denies SI/HI, denies A/V hallucinations, and reports delusions. MSE: The patient is a well-nourished female looking older than stated chronological age. Attire is appropriate dress is hospital garb. Grooming status is inappropriate and disheveled. Ambulation is independent. Gait is normal and coordinated. Posture is normal. Eye contact is inappropriate and staring. Motor activity is appropriate with purposeful, organized, coordinated movements; with no involuntary movements. Attitude is cooperative, defensive and guarded at times. Patient appears fairly attentive and relates well to this interviewer. Language production is spontaneous. Rate is pressured. Latency of response is shortened with irritable tone. Articulation is clear. Patient reports mood as okay with expansive and inappropriate affect. Patients thought process is disorganized, non-linear and illogical, with loose associations, nonsensical. Patient does not report suicidal/homicidal thoughts , ideas, or plans. Patient denies auditory, visual hallucinations. Patient reports delusions. Patient does not appear to be attending to internal stimuli. Patients attention and concentration are poor. Patient is oriented to person, place, and time. Patients insight is poor. Patients judgment is poor. - Time Spent With Patient Time Spent With Patient: 15 minutes, met with patient individually. - Pending Discharge Pending Discharge Within 24 Hours: No Pending Discharge Within 48 Hours: No ICD10 Worksheet Patient Problems: Problems Problem Status Onset Acute psychosis Acute Unspecified psychosis Acute
[2019-01-14] MEDS: NICOTINE POLACRILEX 2 MG GUM B PRN ×4 (09:34→17:29)
[2019-01-14] MEDS: PALIPERIDONE 3 MG TAB.ER PO SCH (17:54)
[2019-01-14] MEDS: MAG HYDROX/AL HYDROX/SIMETH 30 ML UDCUP PO PRN (17:54)
[2019-01-14] MEDS: MELATONIN 3 MG TAB PO PRN (21:19)
[2019-01-15] MEDS: ACETAMINOPHEN 325 MG TAB PO PRN ×2 (07:10→17:31)
--- NOTE | 2019-01-15 07:42 | SOAPPROG ---
SOAP Progress Note Assessment/Plan: Assessment: Unspecified Psychosis. R/O Schizoaffective Disorder. R/O Delusional Disorder. R/O Schizophrenia. Current acute psychosis, delusional. No improvement noted. (see subjective/objective note). Patient is not safe to discharge at this time as patient continues to exhibit signs of psychosis, and express psychosis symptoms. Patient requires continued inpatient care because of current psychosis, and requires inpatient level of care to stabilize in order to no longer be gravely disabled due to mental illness. Patient is unable to communicate her basic needs, unable to test reality, and continues to require prompting and direction from staff for ADLs. Patient exhibits inability to provide for herself, neglecting self-care, withdrawn from social interactions, currently shows inability to maintain any appropriate aspect of personal responsibility as an adult, patient becomes agitated and irritable easily and continues exhibited irritable behavior toward staff. Support system has inability to manage functional impairment at lower level of care. Patient could benefit from continued inpatient hospitalization for crisis stabilization , safety, and medication evaluation. Plan: 1. Psychotropic medications: No medication changes at this time. Plan is to continue to observe patient for response and side effects from medications, and ongoing monitoring and evaluation. Education patient on the importance of taking medications as prescribed. 2. Review with patient informed consent and recommendations for psychotropic medication treatment listed below 3. Labs: no additional labs at this time 4. Therapy: continue milieu and group therapy 5. Further investigation including gathering information from patients relatives and review of past case records to inform treatment plan. 6. Safety/Wellness plan and follow-up outpatient appointments to be established prior to discharge. Next steps are for patient to meet with clinical care leader to plan a safe discharge plan and establish outpatient services for ongoing treatment. 7. Confer with inpatient treatment team regarding treatment plan. 8. Psychosocial stressors addressed through case investigator 9. Legal status: [facility] 10. Consider discharge next week if patient is in stable condition, safe, and has a safe discharge plan. PSYCHOTROPIC MEDICATION TREATMENT INFORMED CONSENT and RECOMMENDATIONS: Review nature of condition, diagnosis, and prognosis. Review nature and purpose of psychotropic medication treatment. Review type of psychotropic medications being ordered. Review risk and benefits of psychotropic medication treatment. Review probable length of time patient will need to take medications. Review risk and benefits of not undergoing psychotropic medication treatment. Review alternative treatments to psychotropic medications. Review psychotropic medications contraindications, drug-drug interactions, side effects, and importance of reporting any side effects to a psychiatric provider or nurse during inpatient hospitalization, and upon discharge to patients psychiatric outpatient provider, primary care provider, or other health care aide. Review importance of asking a nurse, psychiatric provider, or primary care provider any questions or problems concerning the psychotropic medications. Verify patient understands the information that has been provided, and understands, accepts, and agrees to psychotropic medications. Review patients safety plan and importance of patient to report to staff while hospitalized if patient is ever a danger to self/others, or unable to care for self, and upon discharge, the importance for patient to contact [facility] or [facility], or go to the nearest emergency room, if patient is ever a danger to self/others, or unable to care for self. Recommend that upon discharge patient establish medication management treatment with a psychiatric provider, establishes routine therapy appointments, and follow-up with primary care provider. Verify patient understands and agrees to these recommendations. 01/15/19 07:40 Subjective: Following up with patient for evaluation of psychosis and safety. Patient reports, "I am still having the same symptoms, and my hand was numb this morning." Patient reports taking medications as prescribed. Patient reports she has no support system outside the hospital. Objective: Vital Signs Temp Pulse Resp BP Pulse Ox 36.8 C 69 20 104/56 L 98 01/15/19 06:00 01/15/19 06:00 01/15/19 06:00 01/15/19 06:00 01/15/19 06:00 NURSING REPORT: Consulted with nursing for update on patients progress in treatment. Nurses report patient is engaged in treatment, is attending groups, slept 8 hours, expresses the following psychiatric symptoms: delusions, exhibits the following psychiatric symptoms: illogical and nonsensical; is eating all meals, is taking medications as prescribed, and denies SI/HI, denies A/V hallucinations, and reports delusions. MSE: The patient is a well-nourished female looking older than stated chronological age. Attire is appropriate dress is hospital garb. Grooming status is inappropriate and disheveled. Ambulation is independent. Gait is normal and coordinated. Posture is normal. Eye contact is inappropriate and staring. Motor activity is appropriate with purposeful, organized, coordinated movements; with no involuntary movements. Attitude is cooperative, defensive and guarded at times. Patient appears fairly attentive and relates well to this interviewer. Language production is spontaneous. Rate is pressured. Latency of response is shortened with irritable tone. Articulation is clear. Patient reports mood as okay with expansive and inappropriate affect. Patients thought process is disorganized, non-linear and illogical, with loose associations, nonsensical. Patient does not report suicidal/homicidal thoughts , ideas, or plans. Patient denies auditory, visual hallucinations. Patient reports delusions. Patient does not appear to be attending to internal stimuli. Patients attention and concentration are poor. Patient is oriented to person, place, and time. Patients insight is poor. Patients judgment is poor. - Time Spent With Patient Time Spent With Patient: 15 minutes, met with patient individually. - Pending Discharge Pending Discharge Within 24 Hours: No Pending Discharge Within 48 Hours: No ICD10 Worksheet Patient Problems: Problems Problem Status Onset Acute psychosis Acute Unspecified psychosis Acute
[2019-01-15] MEDS: NICOTINE POLACRILEX 2 MG GUM B PRN ×3 (11:02→19:03)
[2019-01-15] MEDS: PALIPERIDONE 3 MG TAB.ER PO SCH (17:28)
[2019-01-15] MEDS: MAG HYDROX/AL HYDROX/SIMETH 30 ML UDCUP PO PRN (17:31)
[2019-01-16] MEDS ORDERED: PALIPERIDONE 3 MG TAB.ER PO SCH (06:08)
--- NOTE | 2019-01-16 07:44 | SOAPPROG ---
SOAP Progress Note Assessment/Plan: Assessment: Unspecified Psychosis. R/O Schizoaffective Disorder, Bipolar Type. R/O Schizophrenia. R/O Delusional Disorder. No improvement noted, continues to provide non-sensical answers to interview questions, irritable, and no insight ( see subjective/objective note). Patient is not safe to discharge at this time as patient continues to exhibit signs of psychosis, and express psychosis symptoms. Patient requires continued inpatient care because of current psychosis, and requires inpatient level of care to stabilize in order to no longer be gravely disabled due to mental illness. Patient is unable to test reality. Patient currently shows inability to maintain any appropriate aspect of personal responsibility as an adult, patient becomes agitated, and continue to exhibit irritable behavior toward staff. Support system has inability to manage functional impairment at lower level of care. Patient could benefit from continued inpatient hospitalization for crisis stabilization, safety, and medication evaluation. Plan: 1. Psychotropic medications: No medication changes at this time. Plan is to continue to observe patient for response and side effects from medications, and ongoing monitoring and evaluation. Education patient on the importance of taking medications as prescribed. 2. Review with patient informed consent and recommendations for psychotropic medication treatment listed below 3. Labs: no additional labs at this time 4. Therapy: continue milieu and group therapy 5. Further investigation including gathering information from patients relatives and review of past case records to inform treatment plan. 6. Safety/Wellness plan and follow-up outpatient appointments to be established prior to discharge. Next steps are for patient to meet with point of care technician to plan a safe discharge plan and establish outpatient services for ongoing treatment. 7. Confer with inpatient treatment team regarding treatment plan. 8. Psychosocial stressors addressed through case worker 9. Legal status: [facility] 10. Consider discharge next week if patient is in stable condition, safe, and has a safe discharge plan. PSYCHOTROPIC MEDICATION TREATMENT INFORMED CONSENT and RECOMMENDATIONS: Review nature of condition, diagnosis, and prognosis. Review nature and purpose of psychotropic medication treatment. Review type of psychotropic medications being ordered. Review risk and benefits of psychotropic medication treatment. Review probable length of time patient will need to take medications. Review risk and benefits of not undergoing psychotropic medication treatment. Review alternative treatments to psychotropic medications. Review psychotropic medications contraindications, drug-drug interactions, side effects, and importance of reporting any side effects to a psychiatric provider or nurse during inpatient hospitalization, and upon discharge to patients psychiatric outpatient provider, primary care provider, or other health critical care registered nurse. Review importance of asking a nurse, psychiatric provider, or primary care provider any questions or problems concerning the psychotropic medications. Verify patient understands the information that has been provided, and understands, accepts, and agrees to psychotropic medications. Review patients safety plan and importance of patient to report to staff while hospitalized if patient is ever a danger to self/others, or unable to care for self, and upon discharge, the importance for patient to contact [facility] or [facility], or go to the nearest emergency room, if patient is ever a danger to self/others, or unable to care for self. Recommend that upon discharge patient establish medication management treatment with a psychiatric provider, establishes routine therapy appointments, and follow-up with primary care provider. Verify patient understands and agrees to these recommendations. 01/16/19 07:43 Subjective: Following up with patient for evaluation of psychosis and safety. Patient reports, "I am still having a lot of symptoms, nausea, feel numb, and just sitting her starring out the window. Need to set-up a logical place to go when leave here." Patient reports taking medications as prescribed. Objective: Vital Signs Temp Pulse Resp BP Pulse Ox 36.9 C 69 18 100/53 L 96 01/16/19 06:00 01/15/19 06:00 01/16/19 06:00 01/16/19 06:00 01/16/19 06:00 NURSING REPORT: Consulted with nursing for update on patients progress in treatment. Nurses report patient is engaged in treatment, is attending groups, slept 8 hours, expresses the following psychiatric symptoms: delusions, exhibits the following psychiatric symptoms: disorganized, nonsensical; is eating all meals, is not agreeable to medications, and denies SI/HI, denies A/V hallucinations, and reports delusions. MSE: The patient is a well-nourished female looking older than stated chronological age. Attire is appropriate dress is hospital garb. Grooming status is inappropriate and disheveled. Ambulation is independent. Gait is normal and coordinated. Posture is normal. Eye contact is inappropriate and staring. Motor activity is appropriate with purposeful, organized, coordinated movements; with no involuntary movements. Attitude is cooperative, defensive and guarded at times. Patient appears fairly attentive and relates well to this interviewer. Language production is spontaneous. Rate is pressured. Latency of response is shortened with irritable tone. Articulation is clear. Patient reports mood as okay with expansive and inappropriate affect. Patients thought process is disorganized, non-linear and illogical, with loose associations, nonsensical. Patient does not report suicidal/homicidal thoughts , ideas, or plans. Patient denies auditory, visual hallucinations. Patient reports delusions. Patient does not appear to be attending to internal stimuli. Patients attention and concentration are poor. Patient is oriented to person, place, and time. Patients insight is poor. Patients judgment is poor. - Time Spent With Patient Time Spent With Patient: 15 minutes, met with patient individually. - Pending Discharge Pending Discharge Within 24 Hours: No Pending Discharge Within 48 Hours: No ICD10 Worksheet Patient Problems: Problems Problem Status Onset Acute psychosis Acute Unspecified psychosis Acute
[2019-01-16] MEDS: NICOTINE POLACRILEX 2 MG GUM B PRN ×2 (08:48→12:46)
--- NOTE | 2019-01-16 13:23 | ASMTCMCOM ---
CM Note CM Note Notes: Pt. reports "feel like in a [employer] movie", adding she feels as though she is "get beat backwards". Pt. stated she is "not a liar". Pt. stated she becomes "extreme nausea when standing up" adding "blood not flowing correctly". Pt. stated if she takes her medications without food she with continuously vomit. Pt. stated she wants to go somewhere [facility]. Pt. reports not being able to see a psychologist. Pt. stated she "don't want to be dependent on medications". Pt. stated she wants her medication dosage to stay the same. Pt. reports she is "not schizophrenic". Pt. stated she has "phobias of lots of things". Pt. reports feeling worried about facing a "scary world". Pt. stated she knows there are people on the unit who are connected with her exHOC's court case. Pt. stated she is worried her kids "will end up in a clinic without ID" adding "their heads have been messed with". Pt. stated she is upset the [facility] stated her doctor (Oleg) isn't real. Pt. stated about [facility], "focing thoughts into a mind that is healthy and that's not right". Pt. reports as alert, anxious, delusional, rambling, pressured speech, staring eye contact and somewhat cooperative. Staff report pt. sleeping 7.5 hours and being medication compliant. CC to schedule follow up appointments, PEARL HAND anticipates pt. being on the unit through Saturday or Saturday. Date Signed: 01/16/2019 01:23 PM Electronically Signed By:Aga Sanders
[2019-01-16] MEDS: PALIPERIDONE 3 MG TAB.ER PO SCH (17:40)
[2019-01-16] MEDS: MAG HYDROX/AL HYDROX/SIMETH 30 ML UDCUP PO PRN (17:44)
[2019-01-16] MEDS: ACETAMINOPHEN 325 MG TAB PO PRN (17:44)
[2019-01-17] MEDS: NICOTINE POLACRILEX 2 MG GUM B PRN ×2 (09:41→13:56)
--- NOTE | 2019-01-17 15:16 | ASMTCMCOM ---
CM Note CM Note Notes: Pt. reports "preconceiving" that her notes and medications "as my exHOC's voice or personia". Pt. stated she believes her exHOC is schizophrenic. Pt. reports being upset that everyone is getting the same "standardized model" of care. Pt. stated she is "still considered a sinner in the system" due to being [employer]. Pt. stated "don't want [facility] penalized by exHOC's mental illness". Pt. reports the unit "feels similar to longterm". Pt. stated she is "hitting clostrophobia", and requested AG. Pt. stated she is "starting to feel...there's not a way out". When asked about AVH, pt stated "don't know how to answer", adding she "is clairvoyant". Pt. stated her medications will increase her clairvoyant skills. Pt. stated she is "feeling everyone's pain and suffering" which is why she feels she is clairvoyant. Pt. then stated that she may just feel bad for people. When asked about paranoia, pt stated "being influenced by the environment". Pt. requested anti-nausea medications and AG from the provider. Pt. presents as alert, calm, groomed, delusional, good to staring eye contact, and cooperative. Staff report pt. sleeping 11.5 hours and being medication compliant. Pt. has a follow up appointment with [facility] on 01/21/19 at 2:30pm at [facility]. Pt. will potentially discharge Saturday or Saturday, per provider, to the homeless longterm. Date Signed: 01/17/2019 03:15 PM Electronically Signed By:Aga Sanders
[2019-01-17] MEDS: PALIPERIDONE 3 MG TAB.ER PO SCH (17:35)
[2019-01-17] MEDS: MAGNESIUM HYDROXIDE 30 ML UDCUP PO PRN (17:49)
[2019-01-17] MEDS: ACETAMINOPHEN 325 MG TAB PO PRN (17:49)
--- NOTE | 2019-01-17 18:56 | SOAPPROG ---
SOAP Progress Note Assessment/Plan: Assessment: Per Balbir Kay's note on 01/16/19: Assessment: Unspecified Psychosis. R/O Schizoaffective Disorder, Bipolar Type. R/O Schizophrenia. R/O Delusional Disorder. No improvement noted, continues to provide non-sensical answers to interview questions, irritable, and no insight ( see subjective/objective note). Patient is not safe to discharge at this time as patient continues to exhibit signs of psychosis, and express psychosis symptoms. Patient requires continued inpatient care because of current psychosis, and requires inpatient level of care to stabilize in order to no longer be gravely disabled due to mental illness. Patient is unable to test reality. Patient currently shows inability to maintain any appropriate aspect of personal responsibility as an adult, patient becomes agitated, and continue to exhibit irritable behavior toward staff. Support system has inability to manage functional impairment at lower level of care. Patient could benefit from continued inpatient hospitalization for crisis stabilization, safety, and medication evaluation. 01/16/19 07:43 Subjective: Following up with patient for evaluation of psychosis and safety. Patient reports, "I am still having a lot of symptoms, nausea, feel numb, and just sitting her starring out the window. Need to set-up a logical place to go when leave here." Patient reports taking medications as prescribed. WEEKEND PLAN: 01/17/19 18:52 1. Patient remains delusional, no significant change. 2. Patient is taking court ordered medications. 3. Patient is attending group therapy. 4. [employer]ong Subjective: Patient is sitting in chair watching TV. She says she has been feeling nauseous , but is in NAD at moment. She told CC that she believes her medications will make her more "clairvoyant." She thinks that's a good thing b/c she is "feeling everyone's pain." She doesn't explain what that means. Objective: Vital Signs Temp Pulse Resp BP Pulse Ox 36.7 C 91 16 108/81 H 97 01/17/19 06:00 01/17/19 06:00 01/17/19 06:00 01/17/19 06:00 01/17/19 06:00 MSE: Affect: Euthymic, mood incongruent Mood: "Terrible" TP: Disorganized, irrational TC: Denies any SI/HI, still has yarsani and somatic delusions Insight/Judgment: Poor - Time Spent With Patient Time Spent With Patient: 15" - Pending Discharge Pending Discharge Within 24 Hours: No Pending Discharge Within 48 Hours: No ICD10 Worksheet Patient Problems: Problems Problem Status Onset Acute psychosis Acute Unspecified psychosis Acute
[2019-01-18] MEDS: NICOTINE POLACRILEX 2 MG GUM B PRN ×2 (08:41→12:31)
--- NOTE | 2019-01-18 14:42 | ASMTCMCOM ---
CM Note CM Note Notes: Pt. reports her legs have swollen to three times their normal size. Pt. reports she wants able to do yoga this morning due to her legs. Pt. stated she "can't read" stating she "get nauseas", adding she is worried about this issue. Pt. stated her medication "knocks me out". Pt. stated she "can't move much" stating this is "not a good sign". Pt. stated she is "trying not to panic". Pt. reports "hard to breath". Pt. stated she has "extra fluid in my body". Pt. requested to switch from tylenol to aspirin, notified. Pt. stated someone told her to fast, but stated she can't fast on her medication or she will become sick, pt added she is "tired of hearing that [fasting]". CC asked who told her to fast, pt stated it was an "Islamic thought". Pt. stated she "have logical reasoning to transfer to another facility". Pt. was unable to answers CC's questions about SI, HI, AVH and paranoia. Pt. did reports "panic visions" when asked about AVH, but declined to elaborate. Pt. reports her "health is declining. Body declining fast". Pt. present as alert, rigid, good eye contact, groomed, and cooperative. Staff report pt. sleeping 11 hours and being medication compliant. Pt. has a follow up appointment on 01/21/19 @ 2:30pm with [facility]. Date Signed: 01/18/2019 02:42 PM Electronically Signed By:Aga Sanders
--- NOTE | 2019-01-18 18:02 | SOAPPROG ---
SOAP Progress Note Assessment/Plan: Assessment: Per Balbir Kay's note on 01/16/19: Assessment: Unspecified Psychosis. R/O Schizoaffective Disorder, Bipolar Type. R/O Schizophrenia. R/O Delusional Disorder. No improvement noted, continues to provide non-sensical answers to interview questions, irritable, and no insight ( see subjective/objective note). Patient is not safe to discharge at this time as patient continues to exhibit signs of psychosis, and express psychosis symptoms. Patient requires continued inpatient care because of current psychosis, and requires inpatient level of care to stabilize in order to no longer be gravely disabled due to mental illness. Patient is unable to test reality. Patient currently shows inability to maintain any appropriate aspect of personal responsibility as an adult, patient becomes agitated, and continue to exhibit irritable behavior toward staff. Support system has inability to manage functional impairment at lower level of care. Patient could benefit from continued inpatient hospitalization for crisis stabilization, safety, and medication evaluation. 01/16/19 07:43 Subjective: Following up with patient for evaluation of psychosis and safety. Patient reports, "I am still having a lot of symptoms, nausea, feel numb, and just sitting her starring out the window. Need to set-up a logical place to go when leave here." Patient reports taking medications as prescribed. WEEKEND PLAN: 01/17/19 18:52 1. Patient remains delusional, no significant change. 2. Patient is taking court ordered medications. 3. Patient is attending group therapy. 4. Sosei/clipsync 01/18/19 17:58 1. Patient has numerous somatic complaints. Will refer to hospitalist. She initially said she couldn't walk this AM, but MD observed patient ambulating without any difficulty and with no sign of distress. 2. Patient says she doesn't like taking her meds, but has been compliant with court order. 3. STC/COM Subjective: When MD spoke with patient, she presented cheerful with smile and talking animatedly to RN. However, when MD asked how patient was doing, she said she was feeling "melancholy." She told MD she "couldn't walk" this AM, but exhibited no difficulty with ambulation while MD was watching her. She admitted , "well, now I can walk." Patient remains delusional. She insists she needs psychotherapy and is waiting for a "real psychologist" to talk to her. Objective: Vital Signs Temp Pulse Resp BP Pulse Ox 36.4 C 58 L 18 108/62 98 01/18/19 06:00 01/18/19 06:00 01/18/19 06:00 01/18/19 06:00 01/18/19 06:00 MSE: Affect: Euthymic, even smiling at times, mood incongruent Mood: "Melancholic" TP: Goal-directed TC: Denies SI/HI, continues to have somatic delusions and some paranoia Insight/Judgment: Poor - Time Spent With Patient Time Spent With Patient: 15" - Pending Discharge Pending Discharge Within 24 Hours: No Pending Discharge Within 48 Hours: No ICD10 Worksheet Patient Problems: Problems Problem Status Onset Acute psychosis Acute Unspecified psychosis Acute
[2019-01-18] MEDS: PALIPERIDONE 3 MG TAB.ER PO SCH (18:20)
[2019-01-18] MEDS: ACETAMINOPHEN 325 MG TAB PO PRN (18:20)
[2019-01-18] MEDS: MAGNESIUM HYDROXIDE 30 ML UDCUP PO PRN (18:20)
--- NOTE | 2019-01-19 08:17 | SOAPPROG ---
SOAP Progress Note Assessment/Plan: Assessment: Unspecified Psychosis. R/O Schizoaffective Disorder, Bipolar Type. R/O Schizophrenia. R/O Delusional Disorder. No improvement noted, continues to provide non-sensical answers to interview questions, irritable, and no insight ( see subjective/objective note). Patient is not safe to discharge at this time as patient continues to exhibit signs of psychosis, and express psychosis symptoms. Patient requires continued inpatient care because of current psychosis, and requires inpatient level of care to stabilize in order to no longer be gravely disabled due to mental illness. Patient is unable to test reality. Patient currently shows inability to maintain any appropriate aspect of personal responsibility as an adult, patient becomes agitated, and continue to exhibit irritable behavior toward staff. Support system has inability to manage functional impairment at lower level of care. Patient could benefit from continued inpatient hospitalization for crisis stabilization, safety, and medication evaluation. Plan: 1. Psychotropic medications: No medication changes at this time. Plan is to continue to observe patient for response and side effects from medications, and ongoing monitoring and evaluation. Education patient on the importance of taking medications as prescribed. 2. Review with patient informed consent and recommendations for psychotropic medication treatment listed below 3. Labs: no additional labs at this time 4. Therapy: continue milieu and group therapy 5. Further investigation including gathering information from patients relatives and review of past case records to inform treatment plan. 6. Safety/Wellness plan and follow-up outpatient appointments to be established prior to discharge. Next steps are for patient to meet with healthcare management to plan a safe discharge plan and establish outpatient services for ongoing treatment. 7. Confer with inpatient treatment team regarding treatment plan. 8. Psychosocial stressors addressed through keycase assembler 9. Legal status: [facility] 10. Consider discharge next week if patient is in stable condition, safe, and has a safe discharge plan. PSYCHOTROPIC MEDICATION TREATMENT INFORMED CONSENT and RECOMMENDATIONS: Review nature of condition, diagnosis, and prognosis. Review nature and purpose of psychotropic medication treatment. Review type of psychotropic medications being ordered. Review risk and benefits of psychotropic medication treatment. Review probable length of time patient will need to take medications. Review risk and benefits of not undergoing psychotropic medication treatment. Review alternative treatments to psychotropic medications. Review psychotropic medications contraindications, drug-drug interactions, side effects, and importance of reporting any side effects to a psychiatric provider or nurse during inpatient hospitalization, and upon discharge to patients psychiatric outpatient provider, primary care provider, or other health critical care nurse specialist. Review importance of asking a nurse, psychiatric provider, or primary care provider any questions or problems concerning the psychotropic medications. Verify patient understands the information that has been provided, and understands, accepts, and agrees to psychotropic medications. Review patients safety plan and importance of patient to report to staff while hospitalized if patient is ever a danger to self/others, or unable to care for self, and upon discharge, the importance for patient to contact [facility] or [facility], or go to the nearest emergency room, if patient is ever a danger to self/others, or unable to care for self. Recommend that upon discharge patient establish medication management treatment with a psychiatric provider, establishes routine therapy appointments, and follow-up with primary care provider. Verify patient understands and agrees to these recommendations. 01/19/19 08:17 Subjective: Following up with patient for evaluation of psychosis and safety. Patient reports, "I am not sure how I am doing. My lips are numb, my legs are numb, my whole body is numb. I am having difficulty moving and reading." Patient reports taking medications as prescribed. Objective: Vital Signs Temp Pulse Resp BP Pulse Ox 36.8 C 75 14 101/57 L 97 01/19/19 06:00 01/19/19 06:00 01/19/19 06:00 01/19/19 06:00 01/19/19 06:00 NURSING REPORT: Consulted with nursing for update on patients progress in treatment. Nurses report patient is engaged in treatment, is attending some groups, slept 8 hours, expresses the following psychiatric symptoms: delusions, exhibits the following psychiatric symptoms: disorganized, nonsensical; is eating all meals, is agreeable to medications, and denies SI/HI, denies A/V hallucinations, and reports delusions. MD REPORT FROM WEEKEND: Still quite delusional, somatic preoccupations. Could benefit from longer time on meds. Does not necessarily need any more meds. MSE: The patient is a well-nourished female looking older than stated chronological age. Attire is appropriate dress is hospital garb. Grooming status is inappropriate and disheveled. Ambulation is independent. Gait is normal and coordinated. Posture is normal. Eye contact is inappropriate and staring. Motor activity is appropriate with purposeful, organized, coordinated movements; with no involuntary movements. Attitude is cooperative, defensive and guarded at times. Patient appears fairly attentive and relates well to this interviewer. Language production is spontaneous. Rate is pressured. Latency of response is shortened with irritable tone. Articulation is clear. Patient reports mood as okay with irritable and inappropriate affect. Patients thought process is disorganized, non-linear and illogical, with loose associations, nonsensical. Patient does not report suicidal/homicidal thoughts , ideas, or plans. Patient denies auditory, visual hallucinations. Patient reports delusions. Patient does not appear to be attending to internal stimuli. Patients attention and concentration are poor. Patient is oriented to person, place, and time. Patients insight is poor. Patients judgment is poor. - Time Spent With Patient Time Spent With Patient: 15 minutes, met with patient individually. - Pending Discharge Pending Discharge Within 24 Hours: No Pending Discharge Within 48 Hours: No ICD10 Worksheet Patient Problems: Problems Problem Status Onset Acute psychosis Acute Unspecified psychosis Acute
[2019-01-19] MEDS: NICOTINE POLACRILEX 2 MG GUM B PRN (12:46)
--- NOTE | 2019-01-19 13:10 | ASMTCMCOM ---
CM Note CM Note Notes: CC met with pt briefly. CC informed pt that she needs to reinstate her medicaid since it was stopped when she went to group home. Pt. agreed to make the call today. CC approached pt later, pt reporting she did call but since her ID/information is not correct (i.e. DOC, SS#). Pt. stated she is very worried about getting a DURBIN. Pt. stated she is allergic to the medication and no one is listening to her. Pt. report swelling in her brain, hands and legs. Pt. did not want to discuss reinstating her medicaid, as she was focused on the DURBIN. CC informed pt's provider and provider spoke with pt. Pt. presents as alert, anxious, delusional, staring eye contact, and not very cooperative. Staff report pt. sleeping 9 hours and being medication compliant. CC rescheduled pt's intake appointment with [facility] for 01/28 @ 2:30pm. CC will continue to support pt in reinstating her medicaid. Date Signed: 01/19/2019 01:09 PM Electronically Signed By:Aga Sanders
[2019-01-19] MEDS: PALIPERIDONE 3 MG TAB.ER PO SCH (17:15)
[2019-01-19] MEDS: MAGNESIUM HYDROXIDE 30 ML UDCUP PO PRN (17:31)
[2019-01-19] MEDS: ACETAMINOPHEN 325 MG TAB PO PRN (17:31)
[2019-01-20] MEDS: ACETAMINOPHEN 325 MG TAB PO PRN ×2 (07:23→18:05)
--- NOTE | 2019-01-20 07:25 | SOAPPROG ---
SOAP Progress Note Assessment/Plan: Assessment: Unspecified Psychosis. R/O Schizoaffective Disorder, Bipolar Type. R/O Schizophrenia. R/O Delusional Disorder. No improvement noted, continues to provide non-sensical answers to interview questions, irritable, and no insight ( see subjective/objective note). Patient is not safe to discharge at this time as patient continues to exhibit signs of psychosis, and express psychosis symptoms. Patient could benefit from continued inpatient hospitalization for crisis stabilization, safety, and medication evaluation. Patient requires continued inpatient care because of current psychosis, and requires inpatient level of care to stabilize in order to no longer be gravely disabled due to mental illness. Patient is unable to test reality. Patient currently shows inability to maintain any appropriate aspect of personal responsibility as an adult, patient becomes agitated, and continue to exhibit irritable behavior toward staff. Support system has inability to manage functional impairment at lower level of care. Patient could benefit from DURBIN prior to discharge to improve adherence. Plan: 1. Psychotropic medications: Invega Sustenna 234 mg IM to be administered today and 156 mg IM to be administered next Saturday prior to discharge. Plan is to continue to observe patient for response and side effects from medications, and ongoing monitoring and evaluation. Education patient on the importance of taking medications as prescribed. 2. Review with patient informed consent and recommendations for psychotropic medication treatment listed below 3. Labs: no additional labs at this time 4. Therapy: continue milieu and group therapy 5. Further investigation including gathering information from patients relatives and review of past case records to inform treatment plan. 6. Safety/Wellness plan and follow-up outpatient appointments to be established prior to discharge. Next steps are for patient to meet with long term care administrator to plan a safe discharge plan and establish outpatient services for ongoing treatment. 7. Confer with inpatient treatment team regarding treatment plan. 8. Psychosocial stressors addressed through continuous pillowcase cutter 9. Legal status: ST/COM 10. Consider discharge next week if patient is in stable condition, safe, and has a safe discharge plan. PSYCHOTROPIC MEDICATION TREATMENT INFORMED CONSENT and RECOMMENDATIONS: Review nature of condition, diagnosis, and prognosis. Review nature and purpose of psychotropic medication treatment. Review type of psychotropic medications being ordered. Review risk and benefits of psychotropic medication treatment. Review probable length of time patient will need to take medications. Review risk and benefits of not undergoing psychotropic medication treatment. Review alternative treatments to psychotropic medications. Review psychotropic medications contraindications, drug-drug interactions, side effects, and importance of reporting any side effects to a psychiatric provider or nurse during inpatient hospitalization, and upon discharge to patients psychiatric outpatient provider, primary care provider, or other health progressive care unit registered nurse. Review importance of asking a nurse, psychiatric provider, or primary care provider any questions or problems concerning the psychotropic medications. Verify patient understands the information that has been provided, and understands, accepts, and agrees to psychotropic medications. Review patients safety plan and importance of patient to report to staff while hospitalized if patient is ever a danger to self/others, or unable to care for self, and upon discharge, the importance for patient to contact [facility] or [facility], or go to the nearest emergency room, if patient is ever a danger to self/others, or unable to care for self. Recommend that upon discharge patient establish medication management treatment with a psychiatric provider, establishes routine therapy appointments, and follow-up with primary care provider. Verify patient understands and agrees to these recommendations. 01/20/19 07:24 Subjective: Following up with patient for evaluation of psychosis and safety. Patient reports, "My eye is twitching, and it is causing nausea. I am going to get another Tylenol." Patient reports taking medications as prescribed. Patient agrees with Invega Sustenna 234 mg IM to be administered today, and second Invega Sustenna loading dose 156 mg IM to be administered next Saturday with discharge currently planned for next Saturday. Patient agrees to follow-up with [facility] following discharge. Objective: Vital Signs Temp Pulse Resp BP Pulse Ox 36.8 C 82 15 112/58 L 96 01/20/19 06:00 01/20/19 06:00 01/20/19 06:00 01/20/19 06:00 01/20/19 06:00 NURSING REPORT: Consulted with nursing for update on patients progress in treatment. Nurses report patient is engaged in treatment, is attending some groups, slept 8 hours, expresses the following psychiatric symptoms: delusions, exhibits the following psychiatric symptoms: disorganized, nonsensical; is eating all meals, is agreeable to medications, and denies SI/HI, denies A/V hallucinations, and reports delusions. MD REPORT FROM WEEKEND: Still quite delusional, somatic preoccupations. Could benefit from longer time on meds. Does not necessarily need any more meds. CARE COORDINATION: Appointment set for 01/28/19 at [facility]. Plan is to walk patient to appointment following discharge. MSE: The patient is a well-nourished female looking older than stated chronological age. Attire is appropriate dress is hospital garb. Grooming status is inappropriate and disheveled. Ambulation is independent. Gait is normal and coordinated. Posture is normal. Eye contact is inappropriate and staring. Motor activity is appropriate with purposeful, organized, coordinated movements; with no involuntary movements. Attitude is cooperative, defensive and guarded at times. Patient appears fairly attentive and relates well to this interviewer. Language production is spontaneous. Rate is pressured. Latency of response is shortened with irritable tone. Articulation is clear. Patient reports mood as okay with irritable and inappropriate affect. Patients thought process is disorganized, non-linear and illogical, with loose associations, nonsensical. Patient does not report suicidal/homicidal thoughts , ideas, or plans. Patient denies auditory, visual hallucinations. Patient reports delusions. Patient does not appear to be attending to internal stimuli. Patients attention and concentration are poor. Patient is oriented to person, place, and time. Patients insight is poor. Patients judgment is poor. - Time Spent With Patient Time Spent With Patient: 15 minutes, met with patient individually. - Pending Discharge Pending Discharge Within 24 Hours: No Pending Discharge Within 48 Hours: No ICD10 Worksheet Patient Problems: Problems Problem Status Onset Acute psychosis Acute Unspecified psychosis Acute
[2019-01-20] MEDS ORDERED: PALIPERIDONE PALMITATE 234 MG/1.5 ML SYR IM ONE (09:00)
[2019-01-20] MEDS: NICOTINE POLACRILEX 2 MG GUM B PRN ×4 (09:50→18:04)
--- NOTE | 2019-01-20 10:56 | ASMTCMCOM ---
CM Note CM Note Notes: Client participated in treatment team today. Client presents less anxious, slightly less paranoid and willing to take DURBIN. Staff to monitor client through out week and weekend until her second DURBIN dose, etc. Date Signed: 01/20/2019 10:55 AM Electronically Signed By:Tunde Diggs
[2019-01-20] MEDS: PALIPERIDONE 3 MG TAB.ER PO SCH (17:41)
[2019-01-20] MEDS: MAG HYDROX/AL HYDROX/SIMETH 30 ML UDCUP PO PRN (18:04)
[2019-01-21] MEDS: ACETAMINOPHEN 325 MG TAB PO PRN ×4 (04:29→17:38)
--- NOTE | 2019-01-21 08:35 | SOAPPROG ---
SOAP Progress Note Assessment/Plan: Assessment: Unspecified Psychosis. R/O Schizoaffective Disorder, Bipolar Type. R/O Schizophrenia. R/O Delusional Disorder. No improvement noted, continues to provide non-sensical answers to interview questions, irritable, and no insight ( see subjective/objective note). Patient is not safe to discharge at this time as patient continues to exhibit signs of psychosis, and express psychosis symptoms. Patient could benefit from continued inpatient hospitalization for crisis stabilization, safety, and medication evaluation. Patient requires continued inpatient care because of current psychosis, and requires inpatient level of care to stabilize in order to no longer be gravely disabled due to mental illness. Patient is unable to test reality. Patient currently shows inability to maintain any appropriate aspect of personal responsibility as an adult, patient becomes agitated, and continue to exhibit irritable behavior toward staff. Support system has inability to manage functional impairment at lower level of care. Patient could benefit from DURBIN prior to discharge to improve adherence. Plan: 1. Psychotropic medications: Invega Sustenna 156 mg IM second loading dose to be administered next Saturday prior to discharge, and lower Invega to 3 mg po QD. Plan is to continue to observe patient for response and side effects from medications, and ongoing monitoring and evaluation. Education patient on the importance of taking medications as prescribed. 2. Review with patient informed consent and recommendations for psychotropic medication treatment listed below 3. Labs: no additional labs at this time 4. Therapy: continue milieu and group therapy 5. Further investigation including gathering information from patients relatives and review of past case records to inform treatment plan. 6. Safety/Wellness plan and follow-up outpatient appointments to be established prior to discharge. Next steps are for patient to meet with technical healthcare consultant to plan a safe discharge plan and establish outpatient services for ongoing treatment. 7. Confer with inpatient treatment team regarding treatment plan. 8. Psychosocial stressors addressed through case finishing machine adjuster 9. Legal status: ST/COM 10. Consider discharge next week if patient is in stable condition, safe, and has a safe discharge plan. PSYCHOTROPIC MEDICATION TREATMENT INFORMED CONSENT and RECOMMENDATIONS: Review nature of condition, diagnosis, and prognosis. Review nature and purpose of psychotropic medication treatment. Review type of psychotropic medications being ordered. Review risk and benefits of psychotropic medication treatment. Review probable length of time patient will need to take medications. Review risk and benefits of not undergoing psychotropic medication treatment. Review alternative treatments to psychotropic medications. Review psychotropic medications contraindications, drug-drug interactions, side effects, and importance of reporting any side effects to a psychiatric provider or nurse during inpatient hospitalization, and upon discharge to patients psychiatric outpatient provider, primary care provider, or other health animal care assistant. Review importance of asking a nurse, psychiatric provider, or primary care provider any questions or problems concerning the psychotropic medications. Verify patient understands the information that has been provided, and understands, accepts, and agrees to psychotropic medications. Review patients safety plan and importance of patient to report to staff while hospitalized if patient is ever a danger to self/others, or unable to care for self, and upon discharge, the importance for patient to contact [facility] or [facility], or go to the nearest emergency room, if patient is ever a danger to self/others, or unable to care for self. Recommend that upon discharge patient establish medication management treatment with a psychiatric provider, establishes routine therapy appointments, and follow-up with primary care provider. Verify patient understands and agrees to these recommendations. 01/21/19 08:35 Subjective: Following up with patient for evaluation of psychosis and safety. Patient reports, "Just this nausea and paralysis." Patient reports taking medications as prescribed. Patient agrees with second Invega Sustenna loading dose 156 mg IM to be administered next Saturday with discharge currently planned for next Saturday. Patient agrees to lower Invega to 3 mg po QD, and agrees to continue at this dose until Invega Sustenna second loading dose is administered next Saturday. Patient expresses plan to contact her father in [place] to see about staying with him after she discharges from hospital. Patient agrees for this BOOM CAT OPERATOR to discuss her plan during treatment team with home care aide today. Objective: Vital Signs Temp Pulse Resp BP Pulse Ox 36.8 C 75 15 120/66 96 01/21/19 06:00 01/21/19 06:00 01/21/19 06:00 01/21/19 06:00 01/21/19 06:00 NURSING REPORT: Consulted with nursing for update on patients progress in treatment. Nurses report patient is engaged in treatment, is attending some groups, slept 8 hours, expresses the following psychiatric symptoms: delusions, exhibits the following psychiatric symptoms: disorganized, nonsensical; is eating all meals, is agreeable to medications, and denies SI/HI, denies A/V hallucinations, and reports delusions. MD REPORT FROM WEEKEND: Still quite delusional, somatic preoccupations. Could benefit from longer time on meds. Does not necessarily need any more meds. CARE COORDINATION: Appointment set for 01/28/19 at [facility]. Plan is to walk patient to appointment following discharge. MSE: The patient is a well-nourished female looking older than stated chronological age. Attire is appropriate dress is hospital garb. Grooming status is appropriate. Ambulation is independent. Gait is normal and coordinated. Posture is normal. Eye contact is appropriate. Motor activity is appropriate with purposeful, organized, coordinated movements; with no involuntary movements. Attitude is cooperative, defensive and guarded at times. Patient appears fairly attentive and relates well to this interviewer. Language production is spontaneous. R/R/V normal. Articulation is clear. Patient reports mood as okay with congruent and appropriate affect. Patients thought process is more linear and illogical, less nonsensical. Patient does not report suicidal/homicidal thoughts, ideas, or plans. Patient denies auditory, visual hallucinations. Patient reports somatic delusions. Patient does not appear to be attending to internal stimuli. Patients attention and concentration are poor. Patient is oriented to person, place, and time. Patients insight is poor. Patients judgment is poor. - Time Spent With Patient Time Spent With Patient: 15 minutes, met with patient individually. - Pending Discharge Pending Discharge Within 24 Hours: No Pending Discharge Within 48 Hours: No ICD10 Worksheet Patient Problems: Problems Problem Status Onset Acute psychosis Acute Unspecified psychosis Acute
[2019-01-21] MEDS: NICOTINE POLACRILEX 2 MG GUM B PRN ×3 (08:49→17:38)
--- NOTE | 2019-01-21 12:10 | ASMTCMCOM ---
CM Note CM Note Notes: Client presents better than previous days; however, is still paranoid regarding certain topics, etc. Client continues to take her medications per COM. Next loading dose for DURBIN is scheduled for Saturday with possible discharge for Saturday of next week (to her apt) at [facility]. Date Signed: 01/21/2019 12:09 PM Electronically Signed By:Tunde Diggs
[2019-01-21] MEDS: MAGNESIUM HYDROXIDE 30 ML UDCUP PO PRN (17:39)
[2019-01-21] MEDS: MELATONIN 3 MG TAB PO PRN (17:39)
[2019-01-21] MEDS: PALIPERIDONE 3 MG TAB.ER PO SCH (17:39)
--- NOTE | 2019-01-22 07:34 | SOAPPROG ---
SOAP Progress Note Assessment/Plan: Assessment: Unspecified Psychosis. R/O Schizoaffective Disorder, Bipolar Type. R/O Schizophrenia. R/O Delusional Disorder. Slight improvement noted, continues to provide non-sensical answers to interview questions and no insight, patient is less irritable (see subjective/objective note). Patient is not safe to discharge at this time as patient continues to exhibit signs of psychosis, and express psychosis symptoms. Patient could benefit from continued inpatient hospitalization for crisis stabilization, safety, and medication evaluation. Patient requires continued inpatient care because of current psychosis, and requires inpatient level of care to stabilize in order to no longer be gravely disabled due to mental illness. Patient is unable to test reality. Patient currently shows inability to maintain any appropriate aspect of personal responsibility as an adult, patient becomes agitated, and continue to exhibit irritable behavior toward staff. Support system has inability to manage functional impairment at lower level of care. Patient could benefit from DURBIN prior to discharge to improve adherence. Plan: 1. Psychotropic medications: Continue current medications and Invega Sustenna 156 mg IM second loading dose to be administered next Saturday prior to discharge. Plan is to continue to observe patient for response and side effects from medications, and ongoing monitoring and evaluation. Education patient on the importance of taking medications as prescribed. 2. Review with patient informed consent and recommendations for psychotropic medication treatment listed below 3. Labs: no additional labs at this time 4. Therapy: continue milieu and group therapy 5. Further investigation including gathering information from patients relatives and review of past case records to inform treatment plan. 6. Safety/Wellness plan and follow-up outpatient appointments to be established prior to discharge. Next steps are for patient to meet with field care coordinator to plan a safe discharge plan and establish outpatient services for ongoing treatment. 7. Confer with inpatient treatment team regarding treatment plan. 8. Psychosocial stressors addressed through director case management 9. Legal status: STC/COM 10. Consider discharge next week if patient is in stable condition, safe, and has a safe discharge plan. PSYCHOTROPIC MEDICATION TREATMENT INFORMED CONSENT and RECOMMENDATIONS: Review nature of condition, diagnosis, and prognosis. Review nature and purpose of psychotropic medication treatment. Review type of psychotropic medications being ordered. Review risk and benefits of psychotropic medication treatment. Review probable length of time patient will need to take medications. Review risk and benefits of not undergoing psychotropic medication treatment. Review alternative treatments to psychotropic medications. Review psychotropic medications contraindications, drug-drug interactions, side effects, and importance of reporting any side effects to a psychiatric provider or nurse during inpatient hospitalization, and upon discharge to patients psychiatric outpatient provider, primary care provider, or other health hospice spiritual care coordinator. Review importance of asking a nurse, psychiatric provider, or primary care provider any questions or problems concerning the psychotropic medications. Verify patient understands the information that has been provided, and understands, accepts, and agrees to psychotropic medications. Review patients safety plan and importance of patient to report to staff while hospitalized if patient is ever a danger to self/others, or unable to care for self, and upon discharge, the importance for patient to contact [facility] or [facility], or go to the nearest emergency room, if patient is ever a danger to self/others, or unable to care for self. Recommend that upon discharge patient establish medication management treatment with a psychiatric provider, establishes routine therapy appointments, and follow-up with primary care provider. Verify patient understands and agrees to these recommendations. 01/22/19 07:33 Subjective: Following up with patient for evaluation of psychosis and safety. Patient reports, "I am doing good, slept well last night. 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 I am worried about my reading, only can read about a paragraph at a time before I start feeling nauseous, and the lines go blurry. I am going to try reading again today." Patient reports taking medications as prescribed. Objective: Vital Signs Temp Pulse Resp BP Pulse Ox 36.7 C 60 16 108/53 L 95 01/22/19 06:00 01/22/19 06:00 01/22/19 06:00 01/22/19 06:00 01/22/19 06:00 NURSING REPORT: Consulted with nursing for update on patients progress in treatment. Nurses report patient is engaged in treatment, is attending some groups, slept 8 hours, expresses the following psychiatric symptoms: somatic delusions; is eating all meals, is agreeable to medications, and denies SI/HI, denies A/V hallucinations, and reports delusions. CARE COORDINATION: Appointment set for 01/28/19 at [facility]. Plan is to walk patient to appointment following discharge. MSE: The patient is a well-nourished female looking older than stated chronological age. Attire is appropriate dress is hospital garb. Grooming status is inappropriate and disheveled. Ambulation is independent. Gait is normal and coordinated. Posture is normal. Eye contact is inappropriate and staring. Motor activity is appropriate with purposeful, organized, coordinated movements; with no involuntary movements. Attitude is cooperative, defensive and guarded at times. Patient appears fairly attentive and relates well to this interviewer. Language production is spontaneous. R/R/V normal. Articulation is clear. Patient reports mood as okay with appropriate affect. Patients thought process is disorganized, non-linear, and illogical. Patient does not report suicidal/homicidal thoughts, ideas, or plans. Patient denies auditory, visual hallucinations. Patient reports delusions. Patient does not appear to be attending to internal stimuli. Patients attention and concentration are poor. Patient is oriented to person, place, and time. Patients insight is poor. Patients judgment is poor. - Time Spent With Patient Time Spent With Patient: 15 minutes, met with patient individually. - Pending Discharge Pending Discharge Within 24 Hours: No Pending Discharge Within 48 Hours: No ICD10 Worksheet Patient Problems: Problems Problem Status Onset Acute psychosis Acute Unspecified psychosis Acute
[2019-01-22] MEDS: NICOTINE POLACRILEX 2 MG GUM B PRN ×3 (09:57→15:45)
--- NOTE | 2019-01-22 13:22 | ASMTCMCOM ---
CM Note CM Note Notes: Client continues to present better than previous days; remains somewhat paranoid regarding certain topics, etc. Client continues to take her medications per COM. Next loading dose for DURBIN is scheduled for Saturday with possible discharge for Saturday of next week (to her apt) at [facility]. Client suggests she received 11+ hours of sleep last night. Date Signed: 01/22/2019 01:22 PM Electronically Signed By:Tunde Diggs
[2019-01-22] MEDS: PALIPERIDONE 3 MG TAB.ER PO SCH (17:52)
[2019-01-22] MEDS: ACETAMINOPHEN 325 MG TAB PO PRN (17:54)
[2019-01-22] MEDS: MAGNESIUM HYDROXIDE 30 ML UDCUP PO PRN (17:55)
[2019-01-22] MEDS: MELATONIN 3 MG TAB PO PRN (21:05)
--- NOTE | 2019-01-23 08:10 | SOAPPROG ---
SOAP Progress Note Assessment/Plan: Assessment: Unspecified Psychosis. R/O Schizoaffective Disorder, Bipolar Type. R/O Schizophrenia. R/O Delusional Disorder. Slight improvement noted, continues to provide non-sensical answers to interview questions and no insight, patient is less irritable (see subjective/objective note). Patient is not safe to discharge at this time as patient continues to exhibit signs of psychosis, and express psychosis symptoms. Patient could benefit from continued inpatient hospitalization for crisis stabilization, safety, and medication evaluation. Patient requires continued inpatient care because of current psychosis, and requires inpatient level of care to stabilize in order to no longer be gravely disabled due to mental illness. Patient is unable to test reality. Patient currently shows inability to maintain any appropriate aspect of personal responsibility as an adult, patient becomes agitated, and continue to exhibit irritable behavior toward staff. Support system has inability to manage functional impairment at lower level of care. Patient could benefit from DURBIN prior to discharge to improve adherence. Plan: 1. Psychotropic medications: Continue current medications and Invega Sustenna 156 mg IM second loading dose to be administered next Saturday prior to discharge. Plan is to continue to observe patient for response and side effects from medications, and ongoing monitoring and evaluation. Education patient on the importance of taking medications as prescribed. 2. Review with patient informed consent and recommendations for psychotropic medication treatment listed below 3. Labs: no additional labs at this time 4. Therapy: continue milieu and group therapy 5. Further investigation including gathering information from patients relatives and review of past case records to inform treatment plan. 6. Safety/Wellness plan and follow-up outpatient appointments to be established prior to discharge. Next steps are for patient to meet with childcare center administrator to plan a safe discharge plan and establish outpatient services for ongoing treatment. 7. Confer with inpatient treatment team regarding treatment plan. 8. Psychosocial stressors addressed through complex case manager 9. Legal status: STC/COM 10. Consider discharge next week if patient is in stable condition, safe, and has a safe discharge plan. PSYCHOTROPIC MEDICATION TREATMENT INFORMED CONSENT and RECOMMENDATIONS: Review nature of condition, diagnosis, and prognosis. Review nature and purpose of psychotropic medication treatment. Review type of psychotropic medications being ordered. Review risk and benefits of psychotropic medication treatment. Review probable length of time patient will need to take medications. Review risk and benefits of not undergoing psychotropic medication treatment. Review alternative treatments to psychotropic medications. Review psychotropic medications contraindications, drug-drug interactions, side effects, and importance of reporting any side effects to a psychiatric provider or nurse during inpatient hospitalization, and upon discharge to patients psychiatric outpatient provider, primary care provider, or other health childcare center administrator. Review importance of asking a nurse, psychiatric provider, or primary care provider any questions or problems concerning the psychotropic medications. Verify patient understands the information that has been provided, and understands, accepts, and agrees to psychotropic medications. Review patients safety plan and importance of patient to report to staff while hospitalized if patient is ever a danger to self/others, or unable to care for self, and upon discharge, the importance for patient to contact [facility] or [facility], or go to the nearest emergency room, if patient is ever a danger to self/others, or unable to care for self. Recommend that upon discharge patient establish medication management treatment with a psychiatric provider, establishes routine therapy appointments, and follow-up with primary care provider. Verify patient understands and agrees to these recommendations. 01/23/19 08:11 Subjective: Following up with patient for evaluation of psychosis and safety. Patient reports, "I feel more present today. Still trying to find a better place to go after discharge." Patient reports taking medications as prescribed. Patient agrees to continue current medications, and reports no side effects. Patient agrees to second loading dose Invega Sustenna 156 mg IM on Saturday with plan to discharge on Saturday. Objective: Vital Signs Temp Pulse Resp BP Pulse Ox 36.4 C 75 16 104/59 L 95 01/23/19 06:00 01/23/19 06:00 01/23/19 06:00 01/23/19 06:00 01/23/19 06:00 NURSING REPORT: Consulted with nursing for update on patients progress in treatment. Nurses report patient is engaged in treatment, is attending some groups, slept 8 hours, expresses the following psychiatric symptoms: mild- moderate somatic delusions; is eating all meals, is agreeable to medications, and denies SI/HI, denies A/V hallucinations, and reports delusions. CARE COORDINATION: Appointment set for 01/28/19 at [facility]. Plan is to walk patient to appointment following discharge. MSE: The patient is a well-nourished female looking older than stated chronological age. Attire is appropriate dress is hospital garb. Grooming status is inappropriate and disheveled. Ambulation is independent. Gait is normal and coordinated. Posture is normal. Eye contact is inappropriate and staring. Motor activity is appropriate with purposeful, organized, coordinated movements; with no involuntary movements. Attitude is cooperative, defensive and guarded at times. Patient appears fairly attentive and relates well to this interviewer. Language production is spontaneous. R/R/V normal. Articulation is clear. Patient reports mood as okay with appropriate affect. Patients thought process is fairly linear and logical; improved. Patient does not report suicidal/homicidal thoughts, ideas, or plans. Patient denies auditory, visual hallucinations. Patient reports delusions. Patient does not appear to be attending to internal stimuli. Patients attention and concentration are poor. Patient is oriented to person, place, and time. Patients insight is poor. Patients judgment is poor. - Time Spent With Patient Time Spent With Patient: 15 minutes, met with patient individually. - Pending Discharge Pending Discharge Within 24 Hours: No Pending Discharge Within 48 Hours: No ICD10 Worksheet Patient Problems: Problems Problem Status Onset Acute psychosis Acute Unspecified psychosis Acute
[2019-01-23] MEDS: NICOTINE POLACRILEX 2 MG GUM B PRN ×3 (08:57→17:25)
--- NOTE | 2019-01-23 14:29 | ASMTBHDC ---
Notes Note: Notes: Pt. reports "becoming more present". Pt. requested to go for a walk today. Pt. reports she slept "pretty good till 5am" adding she "woke up with anxiety". Pt. stated she is "worried what's next". Pt. reports getting enough to eat, adding she is making herself eat more for her medications. Pt. reports attending groups. Pt. reports side effects from her medication including "headache, digestion shut down, hard to chew, gurgling stomach, straining to have a bowel movement, and body feels swollen everywhere".Pt. denied SI/HI. Pt. reports "feeling a panic". Pt. reports having "auditory stimulation from the meds' adding sounds seem stronger. Pt. reports "slight paranoia" about a "shadow spot" in her right eye. Pt. reports being unsure of her discharge plan. Pt. stated she needs to speak with her dad before discharge. Pt. stated she has no ID and "not safe to walk anywhere without an ID". Pt. stated she "want to be released to someone safe". Pt. asked CC to look up convents where she could stay. Pt. stated her "biggest concern is going somewhere safe". Pt. presents as alert, calm, good eye contact, groomed, somewhat friendly, slight delusion, and cooperative. Staff report pt. sleeping 8 hours and being medication compliant. Pt. has an intake appointment on 01/28 at 2:30pm. Pt. will discharge to the [facility]. Date Signed: 01/23/2019 02:29 PM Electronically Signed By:Aga Sanders
[2019-01-23] MEDS: PALIPERIDONE 3 MG TAB.ER PO SCH (17:25)
[2019-01-23] MEDS: ACETAMINOPHEN 325 MG TAB PO PRN (17:26)
[2019-01-23] MEDS: MAGNESIUM HYDROXIDE 30 ML UDCUP PO PRN (17:27)
[2019-01-24] MEDS: NICOTINE POLACRILEX 2 MG GUM B PRN ×2 (12:28→17:28)
--- NOTE | 2019-01-24 14:50 | ASMTBHDC ---
Notes Note: Notes: Pt. reports feeling "hansel think of taking a walk outside". Pt. reports she is discharging on Saturday. Pt. stated she is working on "keep optimism up high". Pt. stated "with a lot of work, my body will be healthy again". Pt. reports she slept "better than the night before". Pt. reports not being able to get a hold of her father. Pt. reports staff found a phone number from twenty years ago, and asked why they won't give her the correct number. CC attempted to explain why staff do not have her father's correct phone number, CC is unsure if pt. fully understood. Pt. reports upon discharge she needs to get a doctor to "get head examined and eyes checked". Pt. reports possibly being able to spend the summer with her father in [place]. Pt. reports she her "sister is acting funny" adding her sister testified that pt's children where safe with their father. Pt. reports this is the "first time taking meds like this". Pt. reports having "explosive bowels" and is "eating things I'm allergic to". Pt. reports being allergic to eggs and having a "intolerance of wheat". Pt. denied SI, HI, and AVH. Pt. reports "little paranoia, in a healthy way". Pt. stated she does not have any current phone numbers for anyone in her family. Pt. stated she is friends with her father on Facebook and asked to message him through Facebook. Pt. presents as alert, calm, somewhat clenched jaw, groomed, good eye contact, and cooperative. Staff report pt. sleeping 8 hours and being medication compliant. Pt. scheduled to get second DURBIN on Saturday and discharge on Saturday to her [facility] appointment. [facility] [address] [facility] [place] [address] Intake appointment - Monday January 21, 2019 (01/21/19) at 2:30pm Date Signed: 01/24/2019 02:50 PM Electronically Signed By:Aga Sanders
--- NOTE | 2019-01-24 17:26 | SOAPPROG ---
SOAP Progress Note Assessment/Plan: Assessment: Per Balbir Kay's note on 01/23/19: Unspecified Psychosis. R/O Schizoaffective Disorder, Bipolar Type. R/O Schizophrenia. R/O Delusional Disorder. Slight improvement noted, continues to provide non-sensical answers to interview questions and no insight, patient is less irritable (see subjective/objective note). Patient is not safe to discharge at this time as patient continues to exhibit signs of psychosis, and express psychosis symptoms. Patient could benefit from continued inpatient hospitalization for crisis stabilization, safety, and medication evaluation. Patient requires continued inpatient care because of current psychosis, and requires inpatient level of care to stabilize in order to no longer be gravely disabled due to mental illness. Patient is unable to test reality. Patient currently shows inability to maintain any appropriate aspect of personal responsibility as an adult, patient becomes agitated, and continue to exhibit irritable behavior toward staff. Support system has inability to manage functional impairment at lower level of care. Patient could benefit from DURBIN prior to discharge to improve adherence. Plan: 1. Psychotropic medications: Continue current medications and Invega Sustenna 156 mg IM second loading dose to be administered next Saturday prior to discharge. Plan is to continue to observe patient for response and side effects from medications, and ongoing monitoring and evaluation. Education patient on the importance of taking medications as prescribed. WEEKEND PLAN: 01/24/19 17:23 1. Slightly less paranoid, but continues to have numerous somatic delusions. 2. Will receive 2nd dose of Invega Sustenna next week. 3. Possible d/c on 01/28/19. 4. [employer] Subjective: Patient complains of numerous somatic issues. She first says the meds are making her constipated, but then states she is having diarrhea. She is also c/o swelling in her "whole body." She thinks it's from her recent Invega Sustenna injection. However, patient has no redness or swelling at injection site or arm. Objective: Vital Signs Temp Pulse Resp BP Pulse Ox 36.9 C 70 14 103/59 L 95 01/24/19 06:00 01/24/19 06:00 01/24/19 06:00 01/24/19 06:00 01/24/19 06:00 MSE: Affect: Anxious Mood: "OK" TP: Disorganized TC: Somatic delusions, some paranoia, denies any SI/HI Insight/Judgment: Poor - Time Spent With Patient Time Spent With Patient: 15" - Pending Discharge Pending Discharge Within 24 Hours: No Pending Discharge Within 48 Hours: No ICD10 Worksheet Patient Problems: Problems Problem Status Onset Acute psychosis Acute Unspecified psychosis Acute
[2019-01-24] MEDS: ACETAMINOPHEN 325 MG TAB PO PRN (17:27)
[2019-01-24] MEDS: PALIPERIDONE 3 MG TAB.ER PO SCH (17:28)
[2019-01-25] MEDS: NICOTINE POLACRILEX 2 MG GUM B PRN ×4 (10:39→20:55)
--- NOTE | 2019-01-25 14:36 | ASMTBHDC ---
Notes Note: Notes: Pt. reports "waking up early". Pt. stated she had "rough nights slepe", adding she had "low blood pressure and naseua". Pt. reports getting "plenty" to eat. Pt. reports no new issues with her current medication Pt. reports having "nausea" and stated she things "somethings wrong". Pt. stated she attended all groups yesterday. Pt. stated she "just wanting to go on a walk". Pt. stated "someone" can pick her up upon discharge. Pt. stated she wants to stay with her father in [place]. Pt. stated her friends from [facility] are going to help her get a new ID. Pt. reports she is "emotionally not happy". Pt. stated she hopes to go to [place]. Pt. reports she is not sure about any current legal issues that would prevent her from leaving the state. Pt. denied SI, HI, and AVH. Pt. reports having "less paranoia, just need to access my dad". Pt. reports she hasn't seen her children since coming to the hospital. Pt. presents as alert, calm, good eye contact, without pressured speech, somewhat clenched jaw, and cooperative. Staff report pt. sleeping 12 hours and being medication compliant. Pt. is scheduled to have her second DURBIN on Saturday and then discharge on Saturday to her intake appointment with P. Date Signed: 01/25/2019 02:35 PM Electronically Signed By:Aga Sanders
--- NOTE | 2019-01-25 16:13 | SOAPPROG ---
SOAP Progress Note Assessment/Plan: Assessment: Per Balbir Kay's note on 01/23/19: Unspecified Psychosis. R/O Schizoaffective Disorder, Bipolar Type. R/O Schizophrenia. R/O Delusional Disorder. Slight improvement noted, continues to provide non-sensical answers to interview questions and no insight, patient is less irritable (see subjective/objective note). Patient is not safe to discharge at this time as patient continues to exhibit signs of psychosis, and express psychosis symptoms. Patient could benefit from continued inpatient hospitalization for crisis stabilization, safety, and medication evaluation. Patient requires continued inpatient care because of current psychosis, and requires inpatient level of care to stabilize in order to no longer be gravely disabled due to mental illness. Patient is unable to test reality. Patient currently shows inability to maintain any appropriate aspect of personal responsibility as an adult, patient becomes agitated, and continue to exhibit irritable behavior toward staff. Support system has inability to manage functional impairment at lower level of care. Patient could benefit from DURBIN prior to discharge to improve adherence. Plan: 1. Psychotropic medications: Continue current medications and Invega Sustenna 156 mg IM second loading dose to be administered next Saturday prior to discharge. Plan is to continue to observe patient for response and side effects from medications, and ongoing monitoring and evaluation. Education patient on the importance of taking medications as prescribed. WEEKEND PLAN: 01/24/19 17:23 1. Slightly less paranoid, but continues to have numerous somatic delusions. 2. Will receive 2nd dose of Invega Sustenna next week. 3. Possible d/c on 01/28/19. 4. [employer] 01/25/19 16:09 1. Patient has restorationist preoccupation. Talking about going to [employer] 10 years ago. 2. Next Invega Sustenna on Saturday. 3. F/U with [facility] on 01/28/19. 4. [employer] Subjective: Patient seems to alternate between restorationist delusions and somatic delusions. Yesterday, she was focused on perceived SE's from meds, including constipation, diarrhea and "swelling." Today, she denies these complaints and talks about different restorationist experiences she's had in the past. She talks about going to a [facility] in [place] 7-10 years ago and having a "breakdown." Patient reports she has 4 children, including a 16 yo daughter, but staff have not had any contact from family. Patient says her FOC lives in [place], but doesn' t know where her children are living. She hasn't had any contact with her FOC, except through Facebook, for over 20 years. Staff have tried to track down her FOC, but patient has no contact information for him. Objective: Vital Signs Temp Pulse Resp BP Pulse Ox 36.7 C 56 L 14 96/54 L 96 01/25/19 06:00 01/25/19 06:00 01/25/19 06:00 01/25/19 06:00 01/25/19 06:00 MSE: Affect: Calm Mood: "Fine" TP: Loose, tangential TC: Church delusions , less somatic complaints today, no SI/HI Insight/Judgment: Poor - Time Spent With Patient Time Spent With Patient: 15" - Pending Discharge Pending Discharge Within 24 Hours: No Pending Discharge Within 48 Hours: No ICD10 Worksheet Patient Problems: Problems Problem Status Onset Acute psychosis Acute Unspecified psychosis Acute
[2019-01-25] MEDS: PALIPERIDONE 3 MG TAB.ER PO SCH (17:54)
[2019-01-25] MEDS: ACETAMINOPHEN 325 MG TAB PO PRN (17:57)
[2019-01-25] MEDS: MAG HYDROX/AL HYDROX/SIMETH 30 ML UDCUP PO PRN (17:59)
[2019-01-26] MEDS: ACETAMINOPHEN 325 MG TAB PO PRN ×2 (05:44→17:28)
--- NOTE | 2019-01-26 08:08 | SOAPPROG ---
SOAP Progress Note Assessment/Plan: Assessment: Unspecified Psychosis. R/O Schizoaffective Disorder, Bipolar Type. R/O Schizophrenia. R/O Delusional Disorder. Improvement noted (see subjective/ objective note). Patient could benefit from continued inpatient hospitalization for crisis stabilization, safety, and medication evaluation. Patient requires continued inpatient care because of current psychosis, and requires inpatient level of care to stabilize in order to no longer be gravely disabled due to mental illness. Patient currently shows inability to maintain appropriate aspect of personal responsibility as an adult. Support system has inability to manage functional impairment at lower level of care. Patient could benefit from DURBIN prior to discharge to improve adherence and to establish safe discharge plan. Plan: 1. Psychotropic medications: Continue current medications and Invega Sustenna 156 mg IM second loading dose to be administered next Saturday prior to discharge. Plan is to continue to observe patient for response and side effects from medications, and ongoing monitoring and evaluation. Education patient on the importance of taking medications as prescribed. 2. Review with patient informed consent and recommendations for psychotropic medication treatment listed below 3. Labs: no additional labs at this time 4. Therapy: continue milieu and group therapy 5. Further investigation including gathering information from patients relatives and review of past case records to inform treatment plan. 6. Safety/Wellness plan and follow-up outpatient appointments to be established prior to discharge. Next steps are for patient to meet with intensive care unit nurse to plan a safe discharge plan and establish outpatient services for ongoing treatment. 7. Confer with inpatient treatment team regarding treatment plan. 8. Psychosocial stressors addressed through medical case worker 9. Legal status: [facility] 10. Consider discharge next week if patient is in stable condition, safe, and has a safe discharge plan. PSYCHOTROPIC MEDICATION TREATMENT INFORMED CONSENT and RECOMMENDATIONS: Review nature of condition, diagnosis, and prognosis. Review nature and purpose of psychotropic medication treatment. Review type of psychotropic medications being ordered. Review risk and benefits of psychotropic medication treatment. Review probable length of time patient will need to take medications. Review risk and benefits of not undergoing psychotropic medication treatment. Review alternative treatments to psychotropic medications. Review psychotropic medications contraindications, drug-drug interactions, side effects, and importance of reporting any side effects to a psychiatric provider or nurse during inpatient hospitalization, and upon discharge to patients psychiatric outpatient provider, primary care provider, or other health care associate. Review importance of asking a nurse, psychiatric provider, or primary care provider any questions or problems concerning the psychotropic medications. Verify patient understands the information that has been provided, and understands, accepts, and agrees to psychotropic medications. Review patients safety plan and importance of patient to report to staff while hospitalized if patient is ever a danger to self/others, or unable to care for self, and upon discharge, the importance for patient to contact [facility] or [facility], or go to the nearest emergency room, if patient is ever a danger to self/others, or unable to care for self. Recommend that upon discharge patient establish medication management treatment with a psychiatric provider, establishes routine therapy appointments, and follow-up with primary care provider. Verify patient understands and agrees to these recommendations. 01/26/19 08:07 Subjective: Following up with patient for evaluation of psychosis and safety. Patient reports, "I feel okay, just had trouble sleeping last night, a little shakiness. " Patient reports taking medications as prescribed. Patient agrees to Invega Sustenna second loading dose 156 mg IM to be administered tomorrow. Objective: Vital Signs Temp Pulse Resp BP Pulse Ox 36.5 C 97 15 86/53 L 97 01/26/19 06:00 01/26/19 06:00 01/26/19 06:00 01/26/19 06:00 01/26/19 06:00 NURSING REPORT: Consulted with nursing for update on patients progress in treatment. Nurses report patient is engaged in treatment, is attending some groups, slept 8 hours, expresses the following psychiatric symptoms: mild- moderate somatic delusions; is eating all meals, is agreeable to medications, and denies SI/HI, denies A/V hallucinations, and reports delusions. CARE COORDINATION: Appointment set for 01/28/19 at [facility]. Plan is to walk patient to appointment following discharge. MD REPORT FROM WEEKEND: No change. Patient would like to contact [facility] in [place] via [employer]. Not sure if this is possible. MSE: The patient is a well-nourished female looking older than stated chronological age. Attire is appropriate dress is hospital garb. Grooming status is inappropriate and disheveled. Ambulation is independent. Gait is normal and coordinated. Posture is normal. Eye contact is inappropriate and staring. Motor activity is appropriate with purposeful, organized, coordinated movements; with no involuntary movements. Attitude is cooperative. Patient appears fairly attentive and relates well to this interviewer. Language production is spontaneous. R/R/V normal. Articulation is clear. Patient reports mood as okay with appropriate affect. Patients thought process is fairly linear and logical; improved over the weekend. Patient does not report suicidal/homicidal thoughts, ideas, or plans. Patient denies auditory, visual hallucinations. Patient reports delusions; improved reporting less somatic delusions. Patient does not appear to be attending to internal stimuli. Patients attention and concentration are poor. Patient is oriented to person, place, and time. Patients insight is poor. Patients judgment is poor. - Time Spent With Patient Time Spent With Patient: 15 minutes, met with patient individually. - Pending Discharge Pending Discharge Within 24 Hours: No Pending Discharge Within 48 Hours: Yes Pending Discharge Date: 01/28/19 Pending Discharge Time: 11:00 ICD10 Worksheet Patient Problems: Problems Problem Status Onset Acute psychosis Acute Unspecified psychosis Acute
[2019-01-26] MEDS: NICOTINE POLACRILEX 2 MG GUM B PRN ×6 (09:05→19:56)
--- NOTE | 2019-01-26 14:10 | ASMTCMCOM ---
CM Note CM Note Notes: Client continues to do better on the unit than previous days. Client participates in some groups and with her peers. Client continues to take her medications as prescribed. Client will receive her second loading dose of the DURBIN tomorrow with pending discharge to her follow up out-patient apt on Saturday. Client presents as alert, less guarded and paranoid Date Signed: 01/26/2019 02:09 PM Electronically Signed By:Tunde Diggs
[2019-01-26] MEDS: PALIPERIDONE 3 MG TAB.ER PO SCH (17:28)
[2019-01-26] MEDS: MAG HYDROX/AL HYDROX/SIMETH 30 ML UDCUP PO PRN (17:28)
--- NOTE | 2019-01-27 08:32 | SOAPPROG ---
SOAP Progress Note Assessment/Plan: Assessment: Delusional Disorder. Improvement noted (see subjective/objective note). Patient could benefit from DURBIN prior to discharge to improve adherence and to establish safe discharge plan. Consider discharge tomorrow. Plan: 1. Psychotropic medications: Continue current medications and Invega Sustenna 156 mg IM second loading dose to be administered today. No other medication changes at this time. Plan is to continue to observe patient for response and side effects from medications, and ongoing monitoring and evaluation. Education patient on the importance of taking medications as prescribed. 2. Review with patient informed consent and recommendations for psychotropic medication treatment listed below 3. Labs: no additional labs at this time 4. Therapy: continue milieu and group therapy 5. Further investigation including gathering information from patients relatives and review of past case records to inform treatment plan. 6. Safety/Wellness plan and follow-up outpatient appointments to be established prior to discharge. Next steps are for patient to meet with customer care team coach to plan a safe discharge plan and establish outpatient services for ongoing treatment. 7. Confer with inpatient treatment team regarding treatment plan. 8. Psychosocial stressors addressed through home health care case manager 9. Legal status: [facility] 10. Consider discharge next week if patient is in stable condition, safe, and has a safe discharge plan. PSYCHOTROPIC MEDICATION TREATMENT INFORMED CONSENT and RECOMMENDATIONS: Review nature of condition, diagnosis, and prognosis. Review nature and purpose of psychotropic medication treatment. Review type of psychotropic medications being ordered. Review risk and benefits of psychotropic medication treatment. Review probable length of time patient will need to take medications. Review risk and benefits of not undergoing psychotropic medication treatment. Review alternative treatments to psychotropic medications. Review psychotropic medications contraindications, drug-drug interactions, side effects, and importance of reporting any side effects to a psychiatric provider or nurse during inpatient hospitalization, and upon discharge to patients psychiatric outpatient provider, primary care provider, or other health critical care specialist. Review importance of asking a nurse, psychiatric provider, or primary care provider any questions or problems concerning the psychotropic medications. Verify patient understands the information that has been provided, and understands, accepts, and agrees to psychotropic medications. Review patients safety plan and importance of patient to report to staff while hospitalized if patient is ever a danger to self/others, or unable to care for self, and upon discharge, the importance for patient to contact [facility] or [facility], or go to the nearest emergency room, if patient is ever a danger to self/others, or unable to care for self. Recommend that upon discharge patient establish medication management treatment with a psychiatric provider, establishes routine therapy appointments, and follow-up with primary care provider. Verify patient understands and agrees to these recommendations. 01/27/19 08:31 Subjective: Following up with patient for evaluation of psychosis and safety. Patient reports, "I feel okay." Patient reports taking medications as prescribed. Patient agrees to Invega Sustenna second loading dose 156 mg IM to be administered today. Objective: Vital Signs Temp Pulse Resp BP Pulse Ox 37.3 C 102 H 15 102/63 97 01/27/19 06:00 01/27/19 06:00 01/27/19 06:00 01/27/19 06:00 01/27/19 06:00 NURSING REPORT: Consulted with nursing for update on patients progress in treatment. Nurses report patient is engaged in treatment, is attending groups, slept 8 hours, expresses the following psychiatric symptoms: mild anxiety; is eating all meals, is agreeable to medications, and denies SI/HI, denies A/V hallucinations, and denies delusions. CARE COORDINATION: Appointment set for 01/28/19 at [facility]. Plan is to walk patient to appointment following discharge. MSE: The patient is a well-nourished female looking older than stated chronological age. Attire is appropriate dress is hospital garb. Grooming status is appropriate. Ambulation is independent. Gait is normal and coordinated. Posture is normal. Eye contact is appropriate. Motor activity is appropriate with purposeful, organized, coordinated movements; with no involuntary movements. Attitude is cooperative. Patient appears attentive and relates well to this interviewer. Language production is spontaneous. R/R/V normal. Articulation is clear. Patient reports mood as okay with appropriate affect. Patients thought process is linear and logical. Patient does not report suicidal/homicidal thoughts, ideas, or plans. Patient denies auditory, visual hallucinations. Patient does not report delusions. Patient does not appear to be attending to internal stimuli. Patients attention and concentration are fair. Patient is oriented to person, place, and time. Patients insight is fair. Patients judgment is fair. - Time Spent With Patient Time Spent With Patient: 15 minutes, met with patient individually. - Pending Discharge Pending Discharge Within 24 Hours: Yes Pending Discharge Within 48 Hours: No Pending Discharge Date: 01/28/19 Pending Discharge Time: 11:00 ICD10 Worksheet Patient Problems: Problems Problem Status Onset Acute psychosis Acute Unspecified psychosis Acute
[2019-01-27] MEDS: ACETAMINOPHEN 325 MG TAB PO PRN ×3 (08:36→15:35)
[2019-01-27] MEDS ORDERED: PALIPERIDONE PALMITATE 156 MG/ML SYR IM ONE ×2 (09:00→11:15)
[2019-01-27] MEDS: ARNICA MONTANA SL PRN ×2 (11:06→13:02)
--- NOTE | 2019-01-27 12:51 | ASMTCMCOM ---
CM Note CM Note Notes: Client continues to do well on the unit. She received her second loading dose of the DURBIN. Client is ready to discharge tomorrow to set apts with [facility]. Client affect is a little flat due to her "not feeling well [physcially]." Discharge plan remains the same.* Date Signed: 01/27/2019 12:50 PM Electronically Signed By:Tunde Diggs
[2019-01-27] MEDS: PALIPERIDONE 3 MG TAB.ER PO SCH (17:13)
[2019-01-28] MEDS: ACETAMINOPHEN 325 MG TAB PO PRN (01:47)
[2019-01-28] MEDS: ARNICA MONTANA SL PRN ×3 (01:47→10:43)
[2019-01-28 06:34] VITALS: BP 112/63
--- NOTE | 2019-01-28 09:10 | ASMTBHDC ---
Notes Note: Notes: CC was able to confirm client's follow up apts: Follow up with: Dr. Abad Dejesus [address] [place] [id number] Client to follow up [facility] [address] [place] [address] Intake appointment - Wednesday January 30, 2019 (01/30/19) at 2:30pm [facility] [address] [place] [id number] Must go through coordinated entry, with [facility], prior to arriving at the homeless [facility] Coordinated Entry Schedule [address] [facility] Open 7 days a week Hours: 10 a.m.-4 p.m., except Saturday noon-4 p.m. Bus lines: BOUND and / [facility] [place] [id number] Date Signed: 01/28/2019 09:09 AM Electronically Signed By:Tunde Diggs
--- NOTE | 2019-01-28 09:39 | BDS ---
[f rep st] BEHAVIORAL HEALTH DISCHARGE SUMMARY REASON FOR ADMISSION: From the ED note dated 12/23/2018, the patient presented to the emergency room from [facility] on an M1 hold by sn[facility] staff. M1 hold described the patient as delusional, hyperreligious, and paranoid. The patient presented to the emergency room very delusional, paranoid, and making hyperreligious statements. The patient was admitted involuntarily and on an M1 hold due to being gravely disabled due to a mental illness. The patient was admitted for safety, crisis stabilization, and medication management. ADMITTING DIAGNOSES: 1. Unspecified psychosis. 2. Rule out schizoaffective disorder. 3. Rule out delusional disorder. ADMISSION PHYSICAL EXAM: Patient was seen on 12/24/2018, for an H and P consultation for medical clearance for inpatient psychiatric hospitalization and treatment. The patient was medically cleared for inpatient psychiatric hospitalization and treatment. For further details, please refer to consultation note dated 12/24/2018. ADMISSION LABS: 1. CBC within normal limits except absolute basophils were elevated at 0.13. 2. BMP within normal limits except carbon dioxide was low at 21. 3. Hemoglobin A1c within normal limits at 5.1. 4. Liver function within normal limits except total protein was elevated at 8.3. 5. Lipid panel within normal limits except cholesterol was elevated at 218, LDL cholesterol calculated was elevated at 135. Non-HDL cholesterol was elevated at 158. 6. TSH was elevated at 10.300. 7. Free T4 was within normal limits at 1.35. 8. Free T3 was within normal limits at 3.17. 9. Beta HCG qualitative test negative. 10. Toxicology screen negative for the substances screened and negative for ethyl alcohol. MAJOR PROCEDURES OR TESTS: None. HOSPITAL COURSE: The most prominent symptoms and behaviors while the patient was here were reports of delusions, notably somatic delusions. At time of admission, patient was also presenting with disorganized behavior and speech. Treatment modalities utilized were milieu and group therapy. Invega was started and titrated to 6 mg p.o. daily to target psychosis symptoms, was tolerated with no report of side effects and with good response. Invega Sustenna 234 mg IM was administered on 01/20/2019, was tolerated with no report of side effects. Invega Sustenna 2nd loading dose 156 mg IM was administered on 01/27/2019, was tolerated with no report of side effects and with good response. Patient has improved considerably with no signs of psychiatric symptoms and no psychiatric symptoms expressed. Patient reports she has improved since admission, states to be in stable condition, feels safe to discharge, and she contracts for safety. Patients response to treatment was good. There were no adverse or unexpected results of treatment. The patient was safe throughout stay, active in treatment, engaged in groups, and was appropriate with staff. Patient met with treatment team prior to discharge to assess readiness to discharge and review discharge plan. The treatment team consensus is the patient in stable condition, has a safe discharge plan, and is ready to discharge today. CONDITION AT DISCHARGE: Patient is in stable condition and is no longer a danger to self or others, and is not gravely disabled due to mental illness. Patient is no longer in need of inpatient level of care, and can be safely and effectively treated within the community. The patients level of risk at time of discharge is low. MSE: The patient is casually dressed and with good hygiene , and looks stated age. Patient is sitting, posture is upright, and position is relaxed. Patient appears awake, alert, and responds appropriately and reasonably during interview. Patient is engaged, relates well to interviewer, and emotional facial expression is appropriate to situation and changes appropriately with topic. Patient is cooperative, makes comfortable eye contact , and movements are voluntary, deliberate, coordinated, and smooth and even with no inappropriate movements. Patient makes laryngeal sounds effortlessly and shares conversation appropriately; pace of conversation is appropriate, and stream of talking is fluent; articulation is clear and understandable; word choice is effortless and appropriate for education level; completes sentences, occasionally pausing to think; rate and volume are appropriate for interview and setting. Patient reports mood as euthymic. Patients affect is stable with full variable range, congruent with mood, and appropriate to speech and circumstances. Patient has linear and logical thinking, with no loose associations, tangential thought, thought blocking, concrete thinking, or any other signs of formal thought disorder. Patient denies suicidal and homicidal ideation, and denies hallucinations and delusions. Patient appears to be a reliable historian with sound judgement and good insight into current condition. Patient has no apparent dysfunction in recent or remote memory noted , and no evidence of gross cognitive dysfunction noted at any point during the interview. DISCHARGE DIAGNOSES: 1. Delusional disorder. 2. Homelessness. CURRENT MEDICATIONS: After reviewing options, risks, and benefits with the patient, the patient agrees to continue Invega Sustenna maintenance dose to be determined by outpatient psychiatric provider. The patient has an appointment today following discharge at [facility] to establish outpatient psychiatric treatment. Invega Sustenna maintenance dose is due on 02/24/2019. DISPOSITION: Patient left hospital independently and voluntarily and was walked by staff to her outpatient followup appointment at [facility]. FOLLOWUP: implant coordinator reports the appropriate outpatient follow-up services have been established and outpatient appointments have been scheduled. The patient received written instructions with times and dates of outpatient follow-up appointments. The following follow-up recommendations were provided to the patient at discharge: Continue psychotropic medications as prescribed and attend appointments as scheduled. Report any side effects to a psychiatric outpatient provider, a primary care provider, or other health resident care director. Address any questions or problems concerning the psychotropic medications with a psychiatric outpatient provider, a primary care provider, or other health resident care director. Contact [facility] or [facility], or go to the nearest emergency room, if you are ever a danger to yourself/others, or unable to care for yourself. As soon as possible, establish a routine medication management treatment with a psychiatric provider, establish routine therapy appointments, and follow-up with a primary care provider. LEGAL COURSE: The patient was admitted on an M1 hold for involuntary inpatient psychiatric hospitalization. The patient was then placed on a short-term certification including court-ordered medications. The patient discharged today independently and voluntarily. At time of discharge, short-term certification was terminated. ATTITUDE AT TIME OF DISCHARGE: The patients attitude was positive at time of discharge, and patient reports looking forward to discharging today. The patient reports she feels safe to discharge, is no longer a danger to herself or others, is in stable condition, and contracts for safety. Patient states she will continue medications as prescribed, and establish medication management treatment with an outpatient provider after discharge. Patient reports she understands the information that has been provided to her, and she understands, accepts, and agrees to psychotropic medications. Patient describes internal protective factors as the coping skills she has learned while hospitalized here, and she plans to continue to practice these coping skills after discharge. LABS AND STUDIES: There were no pending labs or studies at time of discharge. ADVANCED DIRECTIVES: There were no advance directives on file, and patient was full code during this hospitalization. The following psychotropic medication treatment informed consent and recommendations were provided to the patient at time of discharge. Patient reports she understands, accepts, and agrees to the information that has been provided. PSYCHOTROPIC MEDICATION TREATMENT INFORMED CONSENT and RECOMMENDATIONS: Review nature of condition, diagnosis, and prognosis. Review nature and purpose of psychotropic medication treatment. Review type of psychotropic medications being prescribed. Review risk and benefits of psychotropic medication treatment. Review probable length of time will need to take medications. Review risk and benefits of not undergoing psychotropic medication treatment. Review alternative treatments to psychotropic medications. Review psychotropic medications contraindications, side effects, and importance of reporting any side effects to a psychiatric provider, primary care provider, or other health resident care director. Review importance of her asking a psychiatric provider or primary care provider any questions or problems concerning the psychotropic medications. Review importance of reporting to a psychiatric provider, primary care provider, or other health resident care director if she plans to or becomes . Review safety plan and the importance to contact [facility] or [facility] , or go to the nearest emergency room, if ever a danger to yourself/others, or unable to care for yourself. Recommend upon discharge to establish routine medication management treatment with a psychiatric provider, establish routine therapy appointments, and follow-up with a primary care provider. Verify patient understands, accepts, and agrees to the information that has been provided. /[id number]/MODL MTDD
== END 2019-01-28 15:17 | disposition home or self-care (01) | DRG 885 ==
LOC: BBEH 08:50
PROVIDERS: ADMIT Psychiatry & Neurology Psychiatry; ATTEND Registered Nurse
DX: F22 Delusional disorders (principal); Z59.0 Homelessness; Z72.0 Tobacco use
CPT/HCPCS: 80305; 84481-90; G0480; J2426